=== PATIENT | female | born 1950 | race Caucasian/White ===

== ENCOUNTER 2017-11-17 06:51 | Emergency (ER) | payer MEDICARE, BC ==
[2017-11-17] MEDS ORDERED: Ondansetron 4 MG Tab.DIS PO ONE (07:41)
--- NOTE | 2017-11-17 07:46 | EDM.PDOC ---
ED HPI GENERAL MEDICAL PROBLEM - General Chief Complaint: Fever Stated Complaint: FEVER AND HEADACHE Time Seen by Provider: 11/17/17 07:30 Source of Information: Reports: Patient, Old Records, RN History Limitations: Reports: No Limitations - History of Present Illness INITIAL COMMENTS - FREE TEXT/NARRATIVE: 67 yo female here with intermittent fevers since yesterday afternoon. Started with chills. Has some R flank pain, but no dysuria. Has a pHx of recurrent UTI' s. Other than a mild MCGILL has no other sx's currently. Has not been to the clinic for her sx's. Did take acetaminophen earlier this morning. Onset: Gradual Onset Date: 11/16/17 Duration: Hour(s):, Waxing/Waning Location: Reports: Back (R flank) Quality: Reports: Ache Severity: Mild Improves with: Reports: Medication (acetaminophen) Worsens with: Reports: Other (? time) Context: Reports: Other (recurrent UTI's) Associated Symptoms: Reports: Fever/Chills, Headaches (mild), Nausea/Vomiting ( emesis x one yesterday, ongoing nausea. ). 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 Pain Score (Numeric/FACES): 3 - Related Data Allergies Allergy/AdvReac Type Severity Reaction Status Date / Time adhesive Allergy Hives Verified 11/17/17 07:10 Home Meds: Home Meds Acetaminophen [Children's Non-Aspirin] 1,000 mg PO ASDIRECTED PRN 05/07/13 [ History] Aspirin 325 mg PO DAILY 05/07/13 [History] Calcium Citrate/Vitamin D3 [Calcium Citrate + Caplet] 950 mg PO TID 05/07/13 [ History] Cholecalciferol (Vitamin D3) [Vitamin D] 7,000 unit PO DAILY 05/07/13 [History] Citalopram [Citalopram Hbr] 40 mg PO DAILY 05/07/13 [History] Cranberry Conc/C/Bacill Coag [Cranberry Tablet] 650 mg PO DAILY 05/07/13 [ History] Cyanocobalamin (Vitamin B-12) [Cyanocobalamin Injection] 1 injection IM ASDIRECTED 05/07/13 [History] Cyanocobalamin (Vitamin B-12) [Vitamin B-12] 2,500 mcg PO DAILY 05/07/13 [ History] Ferrous Fumarate/Vit C/B12-IF [Fetrin SA] 1 cap PO BID 05/07/13 [History] Levothyroxine [Synthroid] 137 mcg PO DAILY 05/07/13 [History] Multivitamin [Multivitamins] 1 each PO DAILY 05/07/13 [History] Nystatin 100,000 units TOP QID PRN 05/07/13 [History] [place]-3 Fatty Acids [[place]-3] 2,000 mg PO BID 05/07/13 [History] Sulfamethoxazole/Trimethoprim [Bactrim Ds Tablet] 1 tab PO DAILY 05/07/13 [ History] Vitamin E 400 unit PO DAILY 05/07/13 [History] Chlorthalidone 25 mg PO DAILY 08/02/13 [History] Acetaminophen [Tylenol Arthritis] 1 tab PO ASDIRECTED 11/17/17 [History] Vit B Cmplx 3/Fa/Vit C/Biotin [Cinthya-Jena Rx Tablet] 1 tab PO DAILY 11/17/17 [ History] Past Medical History Cardiovascular History: Reports: Other (See Below) Other Cardiovascular History: heart murmur with Genitourinary History: Reports: Renal Calculus, UTI, Recurrent 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: Musculoskeletal History: Reports: Osteoarthritis Psychiatric History: Reports: Depression Endocrine/Metabolic History: Reports: Hypothyroidism, Vitamin D Deficiency Hematologic History: Reports: Iron Deficiency - Past Surgical History Cardiovascular Surgical History: Reports: None GI Surgical History: Reports: Appendectomy, Bariatric Procedure, Cholecystectomy Female Surgical History: Reports: D&C, Hysterectomy Musculoskeletal Surgical History: Reports: Shoulder Surgery Social & Family History - Tobacco Use Smoking Status *Q: Never Smoker - Recreational Drug Use Recreational Drug Use: No ED ROS GENERAL - Review of Systems Review Of Systems: See Below Constitutional: Reports: Fever, Chills, Malaise, Decreased Appetite HEENT: Reports: No Symptoms Respiratory: Reports: No Symptoms Cardiovascular: Reports: No Symptoms Endocrine: Reports: No Symptoms GI/Abdominal: Reports: Decreased Appetite, Nausea, Vomiting. Denies: Black Stool, Bloody Stool, Constipation, Diarrhea, Distension, Hematemesis, Hematochezia, Melena : Reports: Flank Pain (right). Denies: Dysuria, Frequency, Hematuria, Incontinence Musculoskeletal: Reports: No Symptoms Skin: Reports: No Symptoms Neurological: Reports: No Symptoms ED EXAM, RENAL/ - Physical Exam Exam: See Below Exam Limited By: No Limitations General Appearance: Alert, WD/WN, No Apparent Distress, Obese Eye Exam: Bilateral Eye: Normal Inspection Ears: Normal External Exam, Normal Canal, Hearing Grossly Normal Nose: Normal Inspection, Normal Mucosa Throat/Mouth: Normal Inspection, Normal Lips, Normal Oropharynx, Normal Voice, No Airway Compromise Head: Atraumatic, Normocephalic Neck: Normal Inspection, Supple Respiratory/Chest: No Respiratory Distress, Lungs Clear, Normal Breath Sounds, No Accessory Muscle Use Cardiovascular: Regular Rate, Rhythm, No Edema GI/Abdominal: Normal Bowel Sounds, Soft, Non-Tender, No Distention Back Exam: Normal Inspection. No: CVA Tenderness (R), CVA Tenderness (L) Extremities: Normal Inspection, Normal Range of Motion, Non-Tender, No Pedal Edema Neurological: Alert, Oriented, CN II-XII Intact, Normal Cognition, No Motor/ Sensory Deficits Psychiatric: Normal Affect, Normal Mood Skin Exam: Warm, Dry, Intact, Normal Color, No Rash Lymphatic: No Adenopathy Course - Vital Signs Last Recorded V/S: Last Vital Signs Temp 36.5 C 11/17/17 07:07 Pulse 65 11/17/17 08:02 Resp 12 11/17/17 08:02 BP 99/65 11/17/17 08:02 Pulse Ox 96 11/17/17 08:02 - Orders/Labs/Meds Orders: Active Orders 24 hr Category Date Time Status CULTURE URINE [RM] Stat Lab 11/17/17 09:24 Ordered UA W/MICROSCOPIC [URIN] Stat Lab 11/17/17 08:49 Ordered Labs: Laboratory Tests 11/17/17 11/17/17 Range/Units 08:49 09:15 WBC 5.5 (4.5-11.0) K/uL RBC 3.89 (3.30-5.50) M/uL Hgb 12.6 (12.0-15.0) g/dL Hct 36.9 (36.0-48.0) % MCV 95 (80-98) fL MCH 32 H (27-31) pg MCHC 34 (32-36) % Plt Count 234 (150-400) K/uL Urine Color Yellow Urine Appearance Clear Urine pH 8.0 (4.5-8.0) Ur Specific [place] 1.010 (1.008-1.030) Urine Protein Negative (NEGATIVE) mg/dL Urine Glucose (UA) Normal (NEGATIVE) mg/dL Urine Ketones Negative (NEGATIVE) mg/dL Urine Occult Blood Negative (NEGATIVE) Urine Nitrite Negative (NEGATIVE) Urine Bilirubin Negative (NEGATIVE) Urine Urobilinogen Normal (NORMAL) mg/dL Ur Leukocyte Esterase Moderate (NEGATIVE) Urine RBC 0-5 (0-5) Urine WBC 5-10 H (0-5) Ur Epithelial Cells Few Amorphous Sediment Not seen Urine Bacteria Not seen Urine Mucus Few Meds: Medications Discontinued Medications Generic Name Dose Route Start Last Admin Trade Name Freq PRN Reason Stop Dose Admin Ondansetron HCl 4 mg 11/17/17 07:41 11/17/17 08:01 Zofran Odt PO 11/17/17 07:42 4 mg ONETIME ONE Administration Departure - Departure Time of Disposition: 09:30 Disposition: Home, Self-Care 01 Condition: Fair Clinical Impression: UTI (urinary tract infection) Qualifiers: Urinary tract infection type: site unspecified Hematuria presence: without hematuria Qualified Code(s): N39.0 - Urinary tract infection, site not specified - Discharge Information Referrals: Tuan Candelaria MD [Primary Care Provider] - Forms: ED Department Discharge - My Orders Last 24 Hours: My Active Orders 11/17/17 08:49 UA W/MICROSCOPIC [URIN] Stat 11/17/17 09:24 CULTURE URINE [RM] Stat - Assessment/Plan Last 24 Hours: My Active Orders 11/17/17 08:49 UA W/MICROSCOPIC [URIN] Stat 11/17/17 09:24 CULTURE URINE [RM] Stat
[2017-11-17] MEDS ORDERED: Cephalexin 250 MG Cap PO ONE (09:27)
== END 2017-11-17 09:54 | disposition home or self-care (01) ==
LOC: JP.ED 06:51
DX: N39.0 Urinary tract infection, site not specified (principal)
CPT/HCPCS: 36415; 81001; 85027; 87086; 99284; A9270

== ENCOUNTER 2020-05-18 06:11 | Day surgery (SDC) | payer MEDICARE, BC ==
[~2020-05-18 06:11] MED LIST: Sodium Chloride 0.9% 10 ML Syringe FLUSH PRN
[2020-05-18] MEDS ORDERED: Sodium Chloride 0.9% 10 ML Syringe FLUSH ONE (08:30)
--- NOTE | 2020-05-18 12:14 | OR ---
DATE OF PROCEDURE: 05/18/2020 SURGEON: Nicci Gil MD POSTOPERATIVE CARE: Postoperative care will be provided mainly at the [address] [place] [address] [facility] in conjunction with [facility]. PREOPERATIVE DIAGNOSIS: Cataract, left eye. POSTOPERATIVE DIAGNOSIS: Cataract, left eye. PROCEDURE: Phacoemulsification with intraocular lens placement, left eye. ANESTHESIA: Topical and intracameral. ESTIMATED BLOOD LOSS: Minimal. COMPLICATIONS: None. PATHOLOGY SPECIMENS: None. SURGICAL FINDINGS: None. INDICATION FOR PROCEDURE: The patient is a 69-year-old female with history of a visually significant cataract in the left eye, which interfered with activities of daily living. This consisted of a nuclear sclerosis cataract. Following careful discussion of the risks, benefits and alternatives to cataract extraction with intraocular lens placement including blindness and , the patient elected to proceed, and informed, written consent was obtained prior to the procedure. DESCRIPTION OF THE PROCEDURE: The patient was previously identified, and a jane placed above the left eye. All sources, including the patient, indicated that the left eye was the correct eye. The patient was subsequently taken to the operating room where standard monitors were applied. The patient was then prepped and draped in the usual sterile fashion for ophthalmic surgery. Attention was first directed at the 12 o'clock position where a paracentesis port was fashioned. Shugar solution followed by Viscoat was instilled into the eye. Attention was then directed to the 8:30 position where a triplanar incision was made in a near-clear manner using a keratome. A continuous capsulorrhexis was then made using a combination of the cystotome and Utrata forceps. Hydrodissection was achieved using a balanced salt solution, and the lens rotated nicely. Phacoemulsification was then done using a modified [id number] technique without complication. Phaco time was 6.45 CDE. The remaining cortex was removed using the irrigation/aspiration handpiece. Provisc was then instilled into the eye. A Technis lens, model PCB00, at 21.5 diopters was then placed in the capsular bag using an [place] injector. The remaining viscoelastic was removed using the irrigation/aspiration forceps. All wounds were then checked and found to be watertight. The lid speculum and drapes were removed. Maxitrol ointment was placed in the patient's left eye, and the eye was shielded. The patient tolerated the procedure well. The patient was instructed to follow up tomorrow. All needle and sponge counts were correct at the end of the procedure. Nicci Gil MD /[id number]
== END 2020-05-18 10:49 | disposition home or self-care (01) ==
LOC: JP.SDS 06:11
PROVIDERS: ATTEND Ophthalmology
DX: H26.9 Unspecified cataract (principal); Z88.8 Allergy status to other drugs, medicaments and biological substances

== ENCOUNTER 2020-06-01 06:13 | Day surgery (SDC) | payer MEDICARE, BC ==
[2020-06-01] MEDS ORDERED: Sodium Chloride 0.9% 10 ML Syringe FLUSH PRN (08:30)
--- NOTE | 2020-06-01 14:35 | OR ---
DATE OF PROCEDURE: 06/01/2020 SURGEON: Nicci Gil MD POSTOPERATIVE CARE: Postoperative care will be provided mainly at the [address] [place] [address] [facility] in conjunction with [facility]. PREOPERATIVE DIAGNOSIS: Cataract, right eye. POSTOPERATIVE DIAGNOSIS: Cataract, right eye. PROCEDURE: Phacoemulsification with intraocular lens placement, right eye. ANESTHESIA: Topical and intracameral. ESTIMATED BLOOD LOSS: Minimal. COMPLICATIONS: None. PATHOLOGY SPECIMENS: None. SURGICAL FINDINGS: None. INDICATION FOR PROCEDURE: The patient is a 69-year-old female with history of a visually significant cataract in the right eye, which interfered with activities of daily living. This consisted of a nuclear sclerosis cataract. Following careful discussion of the risks, benefits and alternatives to cataract extraction with intraocular lens placement including blindness and , the patient elected to proceed, and informed, written consent was obtained prior to the procedure. DESCRIPTION OF THE PROCEDURE: The patient was previously identified, and a jane placed above the right eye. All sources, including the patient, indicated that the right eye was the correct eye. The patient was subsequently taken to the operating room where standard monitors were applied. The patient was then prepped and draped in the usual sterile fashion for ophthalmic surgery. Attention was first directed at the 12 o'clock position where a paracentesis port was fashioned. Shugar solution followed by Viscoat was instilled into the eye. Attention was then directed to the 8:30 position where a triplanar incision was made in a near-clear manner using a keratome. A continuous capsulorrhexis was then made using a combination of the cystotome and Utrata forceps. Hydrodissection was achieved using a balanced salt solution, and the lens rotated nicely. Phacoemulsification was then done using a modified [id number] technique without complication. Phaco time was 5.31 CDE. The remaining cortex was removed using the irrigation/aspiration handpiece. Provisc was then instilled into the eye. A Technis lens, model DCB00, at 22.5 diopter lens was then placed in the capsular bag using an [place] injector. The remaining viscoelastic was removed using the irrigation/aspiration forceps. All wounds were then checked and found to be watertight. The lid speculum and drapes were removed. Maxitrol ointment was placed in the patient's right eye, and the eye was shielded. The patient tolerated the procedure well. The patient was instructed to follow up tomorrow. All needle and sponge counts were correct at the end of the procedure. There were no surgical findings. Nicci Gli MD /[id number]
== END 2020-06-01 09:48 | disposition home or self-care (01) ==
LOC: JP.SDS 06:13
PROVIDERS: ATTEND Ophthalmology
DX: H26.9 Unspecified cataract (principal)
CPT/HCPCS: 66984; V2632

== ENCOUNTER 2020-06-25 08:44 | Inpatient (IN) | payer MEDICARE, BC ==
--- NOTE | 2020-06-25 09:50 | EDM.PDOC ---
ED HPI GENERAL MEDICAL PROBLEM - General Chief Complaint: Neurological Problem Stated Complaint: FELL ABOUT 3:30 HIT HEAD Time Seen by Provider: 06/25/20 09:35 Source of Information: Reports: Patient, Family, Old Records, RN History Limitations: Reports: No Limitations - History of Present Illness INITIAL COMMENTS - FREE TEXT/NARRATIVE: 69 yo female here with dizziness when she sits or even worse with standing. Sx's like this for several days. Has not been to her provider for any of this. Has fallen a few times without apparent injury. Denies any urinary sx's, chest pain, diarrhea, vomiting, fever or dark/bloody stools. Is due for colonoscopy this year, her last was with Dr. Buckner. Is not aware of a pHx of diverticulosis. 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) (none) - Related Data Allergies Allergy/AdvReac Type Severity Reaction Status Date / Time adhesive Allergy Hives Verified 06/25/20 11:26 Home Meds: Home Meds Aspirin 325 mg PO DAILY 05/07/13 [History] Calcium Citrate/Vitamin D3 [Calcium Citrate + Caplet] 1,900 mg PO BID 05/07/13 [History] Cholecalciferol (Vitamin D3) [Vitamin D] 5,000 unit PO DAILY 05/07/13 [History] Citalopram [Citalopram Hbr] 40 mg PO DAILY 05/07/13 [History] Cyanocobalamin (Vitamin B-12) [Cyanocobalamin Injection] 1,000 mcg IM Q14D 05/07/13 [History] Cyanocobalamin (Vitamin B-12) [Vitamin B-12] 2,500 mcg SL DAILY 05/07/13 [History] Levothyroxine [Synthroid] 137 mcg PO DAILY 05/07/13 [History] Multivitamin [Multivitamins] 1 each PO DAILY 05/07/13 [History] [place]-3 Fatty Acids [[place]-3] 2,000 mg PO BID 05/07/13 [History] Sulfamethoxazole/Trimethoprim [Bactrim Ds Tablet] 1 tab PO MOWEFR 05/07/13 [History] Vitamin E 400 unit PO BID 05/07/13 [History] Chlorthalidone 37.5 mg PO DAILY 08/02/13 [History] Acetaminophen [Tylenol Arthritis] 1 tab PO ASDIRECTED 11/17/17 [History] Alendronate Sodium 70 mg PO Q7D 05/15/20 [History] Biotin 5,000 mcg PO BID 05/15/20 [History] Ocuvite Or 1 tab PO BID 05/15/20 [History] Potassium Chloride 20 meq PO DAILY 05/15/20 [History] Vitamin B Complex [B Complex] 1 each PO DAILY 05/15/20 [History] Past Medical History HEENT History: Reports: Cataract, Impaired Vision Cardiovascular History: Reports: Other (See Below) Other Cardiovascular History: heart murmur with Gastrointestinal History: Reports: Cholelithiasis Genitourinary History: Reports: Renal Calculus, UTI, 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, Musculoskeletal History: Reports: Arthritis, Osteoarthritis Other Musculoskeletal History: both knees are painful Psychiatric History: Reports: Depression Endocrine/Metabolic History: Reports: Hypothyroidism, Obesity/BMI 30+, Vitamin D Deficiency Hematologic History: Reports: B12 Deficiency, Iron Deficiency - Infectious Disease History Infectious Disease History: Reports: Chicken Pox, Measles - Past Surgical History HEENT Surgical History: Reports: Cataract Surgery Cardiovascular Surgical History: Reports: None GI Surgical History: Reports: Appendectomy, Bariatric Procedure, Cholecystectomy, Colonoscopy, EGD Female Surgical History: Reports: D&C, Hysterectomy Endocrine Surgical History: Reports: None Musculoskeletal Surgical History: Reports: Shoulder Surgery Social & Family History - Caffeine Use Caffeine Use: Reports: Coffee ED ROS GENERAL - Review of Systems Review Of Systems: See Below Constitutional: Reports: No Symptoms HEENT: Reports: No Symptoms Respiratory: Reports: No Symptoms Cardiovascular: Reports: Lightheadedness Endocrine: Reports: No Symptoms GI/Abdominal: Reports: No Symptoms : Reports: No Symptoms Musculoskeletal: Reports: No Symptoms Skin: Reports: No Symptoms Neurological: Reports: No Symptoms ED EXAM, NEURO - Physical Exam Exam: See Below Exam Limited By: No Limitations General Appearance: Alert, WD/WN, No Apparent Distress, Obese Eye Exam: Bilateral Eye: Normal Inspection Ears: Normal External Exam, Normal Canal, Hearing Grossly Normal Nose: Normal Inspection, No Blood Throat/Mouth: Normal Inspection, Normal Lips, Normal Oropharynx, Normal Voice, No Airway Compromise Head Exam: Atraumatic, Normocephalic Neck: Normal Inspection Respiratory/Chest: No Respiratory Distress, Lungs Clear, Normal Breath Sounds, No Accessory Muscle Use Cardiovascular: Regular Rate, Rhythm, No Edema GI/Abdominal: Normal Bowel Sounds, Soft, Non-Tender, No Distention. No: Distended Neurological: Alert, Normal Mood/Affect, CN II-XII Intact, No Motor/Sensory Deficits, Oriented x 3 Back Exam: Normal Inspection. No: CVA Tenderness (R), CVA Tenderness (L) Extremities: Normal Inspection, Normal Range of Motion, Non-Tender, No Pedal Edema. No: Pedal Edema Psychiatric: Normal Affect, Normal Mood Skin Exam: Warm, Dry, Intact, Normal Color, No Rash Course - Vital Signs Text/Narrative:: Dr. Mancia called @ 1408h Last Recorded V/S: Last Vital Signs Temp 36.4 C 06/25/20 09:14 Pulse 88 06/25/20 09:14 Resp 16 06/25/20 09:14 BP 118/63 06/25/20 09:14 Pulse Ox 100 06/25/20 09:14 Orthostatic Blood Pressure [ 89/59 Standing] Orthostatic Blood Pressure [ 100/61 Sitting] Orthostatic Blood Pressure [ 95/51 Supine] - Orders/Labs/Meds Orders: Active Orders 24 hr Category Date Time Status Cardiac Monitoring [RC] .As Directed Care 06/25/20 09:44 Active Orthostatic Vital Signs [RC] ASDIRECTED Care 06/25/20 09:43 Active Orthostatic Vital Signs [RC] ASDIRECTED Care 06/25/20 12:45 Active NS + KCl 20mEq/L [Normal Saline with 20 mEq KCl] 1,000 Med 06/25/20 10:30 Active ml IV ASDIRECTED Sodium Chloride 0.9% [Saline Flush] Med 06/25/20 10:08 Active 10 ml FLUSH ASDIRECTED PRN Saline Lock Insert [OM.PC] Routine Oth 06/25/20 10:08 Ordered Medication Orders Potassium Chloride/Sodium Chloride (Normal Saline With 20 Meq Kcl) 1,000 mls @ 500 mls/hr IV ASDIRECTED [facility] Last Admin: 06/25/20 10:43 Dose: 500 mls/hr Documented by: JOHN Sodium Chloride (Saline Flush) 10 ml FLUSH ASDIRECTED PRN PRN Reason: Keep Vein Open Last Admin: 06/25/20 10:45 Dose: 10 ml Documented by: JOHN Labs: Laboratory Tests 06/25/20 06/25/20 06/25/20 Range/Units 09:55 09:56 09:56 WBC 7.0 (4.5-11.0) K/uL RBC 2.90 L (3.30-5.50) M/uL Hgb 8.7 L D (12.0-15.0) g/dL Hct 27.1 L (36.0-48.0) % MCV 93 (80-98) fL MCH 30 (27-31) pg MCHC 32 (32-36) % Plt Count 427 H (150-400) K/uL Sodium 141 (140-148) mmol/L Potassium 3.1 L (3.6-5.2) mmol/L Chloride 101 (100-108) mmol/L Carbon Dioxide 30 (21-32) mmol/L Anion Gap 13.1 (5.0-14.0) mmol/L BUN 23 H D (7-18) mg/dL Creatinine 0.6 (0.6-1.0) mg/dL Est Cr Clr Drug Dosing 81.23 mL/min Estimated GFR (MDRD) > 60 (>60) Glucose 131 H (74-106) mg/dL Calcium 9.1 (8.5-10.1) mg/dL Magnesium 1.7 L (1.8-2.4) mg/dL Troponin I (0.000-0.056) ng/mL Urine Color (YELLOW) Urine Appearance (CLEAR) Urine pH (5.0-8.0) Ur Specific [place] (1.008-1.030) Urine Protein (NEGATIVE) mg/dL Urine Glucose (UA) (NEGATIVE) mg/dL Urine Ketones (NEGATIVE) mg/dL Urine Occult Blood (NEGATIVE) Urine Nitrite (NEGATIVE) Urine Bilirubin (NEGATIVE) Urine Urobilinogen (0.2-1.0) EU/dL Ur Leukocyte Esterase (NEGATIVE) Urine RBC (0-5) Urine WBC (0-5) Ur Epithelial Cells Amorphous Sediment Urine Bacteria Urine Mucus 06/25/20 06/25/20 Range/Units 09:56 12:00 WBC (4.5-11.0) K/uL RBC (3.30-5.50) M/uL Hgb (12.0-15.0) g/dL Hct (36.0-48.0) % MCV (80-98) fL MCH (27-31) pg MCHC (32-36) % Plt Count (150-400) K/uL Sodium (140-148) mmol/L Potassium (3.6-5.2) mmol/L Chloride (100-108) mmol/L Carbon Dioxide (21-32) mmol/L Anion Gap (5.0-14.0) mmol/L BUN (7-18) mg/dL Creatinine (0.6-1.0) mg/dL Est Cr Clr Drug Dosing mL/min Estimated GFR (MDRD) (>60) Glucose (74-106) mg/dL Calcium (8.5-10.1) mg/dL Magnesium (1.8-2.4) mg/dL Troponin I < 0.017 (0.000-0.056) ng/mL Urine Color Yellow (YELLOW) Urine Appearance Clear (CLEAR) Urine pH 7.0 (5.0-8.0) Ur Specific [place] 1.020 (1.008-1.030) Urine Protein Negative (NEGATIVE) mg/dL Urine Glucose (UA) Negative (NEGATIVE) mg/dL Urine Ketones Negative (NEGATIVE) mg/dL Urine Occult Blood Negative (NEGATIVE) Urine Nitrite Negative (NEGATIVE) Urine Bilirubin Negative (NEGATIVE) Urine Urobilinogen 1.0 (0.2-1.0) EU/dL Ur Leukocyte Esterase Negative (NEGATIVE) Urine RBC 0-5 (0-5) Urine WBC 0-5 (0-5) Ur Epithelial Cells Rare Amorphous Sediment Not seen Urine Bacteria Rare Urine Mucus Not seen Meds: Medications Generic Name Dose Route Start Last Admin Trade Name Freq PRN Reason Stop Dose Admin Potassium Chloride/Sodium Chloride 1,000 mls @ 500 mls/hr 06/25/20 10:30 06/25/20 10:43 Normal Saline With 20 Meq Kcl IV 500 mls/hr ASDIRECTED CLEMENTE Administration Sodium Chloride 10 ml 06/25/20 10:08 06/25/20 10:45 Saline Flush FLUSH 10 ml ASDIRECTED PRN Administration Keep Vein Open Discontinued Medications Generic Name Dose Route Start Last Admin Trade Name Freq PRN Reason Stop Dose Admin Lactated Ringer's 1,000 mls @ 1,000 mls/hr 06/25/20 13:20 06/25/20 13:26 Ringers, Lactated IV 06/25/20 14:19 1,000 mls/hr BOLUS ONE Administration Magnesium Oxide 800 mg 06/25/20 10:36 06/25/20 10:43 Magnesium Oxide PO 06/25/20 10:37 800 mg ONETIME ONE Administration Potassium Chloride 20 meq 06/25/20 10:25 06/25/20 10:40 Klor-Con M20 PO 06/25/20 10:26 20 meq ONETIME ONE Administration Departure - Departure Time of Disposition: 14:50 Disposition: Admitted As Inpatient 66 Condition: Fair Clinical Impression: Orthostatic hypotension, Hypokalemia, Mild dehydration Anemia Qualifiers: Anemia type: iron deficiency Iron deficiency anemia type: chronic blood loss Qualified Code(s): D50.0 - Iron deficiency anemia secondary to blood loss (chronic) GI (gastrointestinal bleed) Qualifiers: GI bleed type/associated pathology: unspecified gastrointestinal hemorrhage type Qualified Code(s): K92.2 - Gastrointestinal hemorrhage, unspecified - Discharge Information Referrals: Tuan Candelaria MD [Primary Care Provider] - Forms: ED Department Discharge Sepsis Event Note (ED) - Focused Exam Vital Signs: Vital Signs Temp Pulse Resp BP Pulse Ox 06/25/20 09:14 36.4 C 88 16 118/63 100 - My Orders Last 24 Hours: My Active Orders 06/25/20 09:43 Orthostatic Vital Signs [RC] ASDIRECTED 06/25/20 09:44 Cardiac Monitoring [RC] .As Directed 06/25/20 10:08 Sodium Chloride 0.9% [Saline Flush] 10 ml FLUSH ASDIRECTED PRN Saline Lock Insert [OM.PC] Routine 06/25/20 10:30 NS + KCl 20mEq/L [Normal Saline with 20 mEq KCl] 1,000 ml IV ASDIRECTED 06/25/20 12:45 Orthostatic Vital Signs [RC] ASDIRECTED - Assessment/Plan Last 24 Hours: My Active Orders 06/25/20 09:43 Orthostatic Vital Signs [RC] ASDIRECTED 06/25/20 09:44 Cardiac Monitoring [RC] .As Directed 06/25/20 10:08 Sodium Chloride 0.9% [Saline Flush] 10 ml FLUSH ASDIRECTED PRN Saline Lock Insert [OM.PC] Routine 06/25/20 10:30 NS + KCl 20mEq/L [Normal Saline with 20 mEq KCl] 1,000 ml IV ASDIRECTED 06/25/20 12:45 Orthostatic Vital Signs [RC] ASDIRECTED
[2020-06-25] MEDS ORDERED: Sodium Chloride 0.9% 10 ML Syringe FLUSH PRN ×2 (10:08→15:45)
[2020-06-25] MEDS ORDERED: Potassium Chloride 20 MEQ Tab.ER PO ONE ×2 (10:25→16:11)
[2020-06-25] MEDS ORDERED: NS + KCl 20mEq/L 1,000 ML IV SCH (10:30)
[2020-06-25] MEDS ORDERED: Magnesium Oxide 400 MG Tab PO ONE (10:36)
[2020-06-25] MEDS ORDERED: Lactated Ringers 1,000 ML IV ONE (13:20)
--- NOTE | 2020-06-25 15:09 | PCM.HP.2 ---
H&P History of Present Illness - General Date of Service: 06/25/20 Admit Problem/Dx: Admission Diagnosis/Problem Admission Diagnosis/Problem Bleeding Source of Information: Patient, Provider, RN Notes Reviewed History Limitations: Reports: No Limitations - History of Present Illness Initial Comments - Free Text/Narative: Ms. Marino is a 69-year-old woman who was admitted through the emergency department weakness and lightheadedness secondary to anemia and probable GI blee d. Over the last 7 days she has had ongoing difficulty with lightheadedness especially with standing, she denies vertiginous symptoms. When she stands up she feels as though she will pass out. She did have one episode of syncope about a week ago and had another episode of near syncope today. Because of the symptoms she presented to the urgency department for further evaluation. She was found to have low hemoglobin which is abnormal for her and significant orthostatic hypotension. Following hydration hemoglobin has dropped approximately 1 g and orthostasis has improved but not resolved. She denies recent hematemesis melena hematochezia or hematuria. Stool was tested and found to be heme positive. Recent symptoms of chest pain or pressure and her troponin level is within normal range. - Related Data Allergies/Adverse Reactions: Allergies Allergy/AdvReac Type Severity Reaction Status Date / Time adhesive Allergy Hives Verified 06/25/20 11:26 Home Medications: Home Meds Aspirin 325 mg PO DAILY 05/07/13 [History] Calcium Citrate/Vitamin D3 [Calcium Citrate + Caplet] 1,900 mg PO BID 05/07/13 [History] Cholecalciferol (Vitamin D3) [Vitamin D] 5,000 unit PO DAILY 05/07/13 [History] Citalopram [Citalopram Hbr] 40 mg PO DAILY 05/07/13 [History] Cyanocobalamin (Vitamin B-12) [Cyanocobalamin Injection] 1,000 mcg IM Q14D 05/07/13 [History] Cyanocobalamin (Vitamin B-12) [Vitamin B-12] 2,500 mcg SL DAILY 05/07/13 [History] Levothyroxine [Synthroid] 137 mcg PO DAILY 05/07/13 [History] Multivitamin [Multivitamins] 1 each PO DAILY 05/07/13 [History] [place]-3 Fatty Acids [[place]-3] 2,000 mg PO BID 05/07/13 [History] Sulfamethoxazole/Trimethoprim [Bactrim Ds Tablet] 1 tab PO MOWEFR 05/07/13 [History] Vitamin E 400 unit PO BID 05/07/13 [History] Chlorthalidone 37.5 mg PO DAILY 08/02/13 [History] Acetaminophen [Tylenol Arthritis] 1 tab PO ASDIRECTED 11/17/17 [History] Alendronate Sodium 70 mg PO Q7D 05/15/20 [History] Biotin 5,000 mcg PO BID 05/15/20 [History] Ocuvite Or 1 tab PO BID 05/15/20 [History] Potassium Chloride 20 meq PO DAILY 05/15/20 [History] Vitamin B Complex [B Complex] 1 each PO DAILY 05/15/20 [History] Past Medical History HEENT History: Reports: Cataract, Impaired Vision Cardiovascular History: Reports: Other (See Below) Other Cardiovascular History: heart murmur with Gastrointestinal History: Reports: Cholelithiasis Genitourinary History: Reports: Renal Calculus, UTI, 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 CAR History: Reports: Fibroids, Musculoskeletal History: Reports: Arthritis, Osteoarthritis Other Musculoskeletal History: both knees are painful Psychiatric History: Reports: Depression Endocrine/Metabolic History: Reports: Hypothyroidism, Obesity/BMI 30+, Vitamin D Deficiency Hematologic History: Reports: B12 Deficiency, Iron Deficiency - Infectious Disease History Infectious Disease History: Reports: Chicken Pox, Measles - Past Surgical History HEENT Surgical History: Reports: Cataract Surgery Cardiovascular Surgical History: Reports: None GI Surgical History: Reports: Appendectomy, Bariatric Procedure, Cholecystectomy, Colonoscopy, EGD Female Surgical History: Reports: D&C, Hysterectomy Endocrine Surgical History: Reports: None Musculoskeletal Surgical History: Reports: Shoulder Surgery Social & Family History - Tobacco Use Tobacco Use Status *Q: Never Tobacco User - Caffeine Use Caffeine Use: Reports: Coffee - Recreational Drug Use Recreational Drug Use: No H&P Review of Systems - Review of Systems: Review Of Systems: See Below General: Reports: Malaise, Weakness. Denies: Fever, Chills HEENT: Reports: No Symptoms Pulmonary: Reports: No Symptoms Cardiovascular: Reports: Lightheadedness, Syncope. Denies: Chest Pain, Palpitations, Dyspnea on Exertion, Orthopnea, PND, Edema Gastrointestinal: Reports: No Symptoms Genitourinary: Reports: No Symptoms Musculoskeletal: Reports: No Symptoms Skin: Reports: No Symptoms Psychiatric: Reports: No Symptoms Neurological: Reports: No Symptoms Hematologic/Lymphatic: Reports: No Symptoms Immunologic: Reports: No Symptoms Exam - Exam Exam: See Below - Vital Signs Vital Signs: Last Vital Signs Temp 97.6 F 06/25/20 09:14 Pulse 88 06/25/20 09:14 Resp 16 06/25/20 09:14 BP 118/63 06/25/20 09:14 Pulse Ox 100 06/25/20 09:14 Orthostatic Blood Pressure [ 89/59 Standing] Orthostatic Blood Pressure [ 100/61 Sitting] Orthostatic Blood Pressure [ 95/51 Supine] Weight: 207 lb - Exam Quality Assessment: DVT Prophylaxis General: Alert, Oriented, Cooperative, Mild Distress HEENT: Conjunctiva Clear, Hearing Intact, Mucosa Moist & [place], Normal Nasal S eptum, Posterior Pharynx Clear, Pupils Equal Neck: Supple, Trachea Midline, +2 Carotid Pulse wo Bruit Lungs: Clear to Auscultation, Normal Respiratory Effort Cardiovascular: Regular Rate, Regular Rhythm, Normal S1, Normal S2. No: Systolic Murmur, Diastolic Murmur GI/Abdominal Exam: Soft, Non-Tender, No Organomegaly, No Distention Back Exam: Normal Inspection, Full Range of Motion Extremities: Non-Tender, No Pedal Edema Skin: Warm, Dry, Intact Neurological: Cranial Nerves Intact, Strength Equal Bilateral, Normal Speech, Normal Tone, Sensation Intact. No: Focal Deficit Neuro Extensive - Mental Status: Alert, Oriented x3, Normal Mood/Affect, Normal Cognition, Memory Intact - Patient Data Lab Results Last 24 hrs: Laboratory Results - last 24 hr 06/25/20 06/25/20 06/25/20 Range/Units 09:55 09:56 09:56 WBC 7.0 (4.5-11.0) K/uL RBC 2.90 L (3.30-5.50) M/uL Hgb 8.7 L D (12.0-15.0) g/dL Hct 27.1 L (36.0-48.0) % MCV 93 (80-98) fL MCH 30 (27-31) pg MCHC 32 (32-36) % Plt Count 427 H (150-400) K/uL Sodium 141 (140-148) mmol/L Potassium 3.1 L (3.6-5.2) mmol/L Chloride 101 (100-108) mmol/L Carbon Dioxide 30 (21-32) mmol/L Anion Gap 13.1 (5.0-14.0) mmol/L BUN 23 H D (7-18) mg/dL Creatinine 0.6 (0.6-1.0) mg/dL Est Cr Clr Drug Dosing 81.23 mL/min Estimated GFR (MDRD) > 60 (>60) Glucose 131 H (74-106) mg/dL Calcium 9.1 (8.5-10.1) mg/dL Magnesium 1.7 L (1.8-2.4) mg/dL Troponin I (0.000-0.056) ng/mL Urine Color (YELLOW) Urine Appearance (CLEAR) Urine pH (5.0-8.0) Ur Specific [place] (1.008-1.030) Urine Protein (NEGATIVE) mg/dL Urine Glucose (UA) (NEGATIVE) mg/dL Urine Ketones (NEGATIVE) mg/dL Urine Occult Blood (NEGATIVE) Urine Nitrite (NEGATIVE) Urine Bilirubin (NEGATIVE) Urine Urobilinogen (0.2-1.0) EU/dL Ur Leukocyte Esterase (NEGATIVE) Urine RBC (0-5) Urine WBC (0-5) Ur Epithelial Cells Amorphous Sediment Urine Bacteria Urine Mucus 06/25/20 06/25/20 Range/Units 09:56 12:00 WBC (4.5-11.0) K/uL RBC (3.30-5.50) M/uL Hgb (12.0-15.0) g/dL Hct (36.0-48.0) % MCV (80-98) fL MCH (27-31) pg MCHC (32-36) % Plt Count (150-400) K/uL Sodium (140-148) mmol/L Potassium (3.6-5.2) mmol/L Chloride (100-108) mmol/L Carbon Dioxide (21-32) mmol/L Anion Gap (5.0-14.0) mmol/L BUN (7-18) mg/dL Creatinine (0.6-1.0) mg/dL Est Cr Clr Drug Dosing mL/min Estimated GFR (MDRD) (>60) Glucose (74-106) mg/dL Calcium (8.5-10.1) mg/dL Magnesium (1.8-2.4) mg/dL Troponin I < 0.017 (0.000-0.056) ng/mL Urine Color Yellow (YELLOW) Urine Appearance Clear (CLEAR) Urine pH 7.0 (5.0-8.0) Ur Specific [place] 1.020 (1.008-1.030) Urine Protein Negative (NEGATIVE) mg/dL Urine Glucose (UA) Negative (NEGATIVE) mg/dL Urine Ketones Negative (NEGATIVE) mg/dL Urine Occult Blood Negative (NEGATIVE) Urine Nitrite Negative (NEGATIVE) Urine Bilirubin Negative (NEGATIVE) Urine Urobilinogen 1.0 (0.2-1.0) EU/dL Ur Leukocyte Esterase Negative (NEGATIVE) Urine RBC 0-5 (0-5) Urine WBC 0-5 (0-5) Ur Epithelial Cells Rare Amorphous Sediment Not seen Urine Bacteria Rare Urine Mucus Not seen Result Diagrams: 06/25/20 15:18 06/25/20 15:18 Dylan Results Last 24 hrs: Microbiology 06/25/20 11:19 Stool Occult Blood (DYLAN) - Final Stool / Feces - Stool, Formed Sepsis Event Note - Evaluation Sepsis Screening Result: No Definite Risk - Focused Exam Vital Signs: Vital Signs Temp Pulse Resp BP Pulse Ox 06/25/20 09:14 97.6 F 88 16 118/63 100 *Q Meaningful Use (ADM) - VTE *Q VTE Pharmacological Contraindications *Q: Active Hemorrhage - VTE Risk Assess *Q Each Risk Factor Represents 1 Point: Obesity ( BMI > 25 kg/m2) Total Score 1 Point Risk Factors: 1 Each Risk Factor Represents 2 Points: Age 60 - 74 Years Total Score 2 Point Risk Factors: 2 Each Risk Factor Represents 3 Points: None Total Score 3 Point Risk Factors: 0 Each Risk Factor Represents 5 Points: None Total Score 5 Point Risk Factors: 0 Venous Thromboembolism Risk Factor Score *Q: 3 Problem List Initiated/Reviewed/Updated: Yes Orders Last 24hrs: Active Orders 24 hr Category Date Time Status Patient Status Manage Transfer [TRANSFER] Routine ADT 06/25/20 14:59 Ordered Cardiac Monitoring [RC] .As Directed Care 06/25/20 09:44 Active Orthostatic Vital Signs [RC] ASDIRECTED Care 06/25/20 09:43 Active Orthostatic Vital Signs [RC] ASDIRECTED Care 06/25/20 12:45 Active HEMOGLOBIN [HEME] Stat Lab 06/25/20 14:56 Ordered POTASSIUM,K [CHEM] Stat Lab 06/25/20 14:56 Ordered NS + KCl 20mEq/L [Normal Saline with 20 mEq KCl] 1,000 Med 06/25/20 10:30 Active ml IV ASDIRECTED Sodium Chloride 0.9% [Saline Flush] Med 06/25/20 10:08 Active 10 ml FLUSH ASDIRECTED PRN Saline Lock Insert [OM.PC] Routine Oth 06/25/20 10:08 Ordered Resuscitation Status Routine Resus Stat 06/25/20 15:02 Ordered Medication Orders Potassium Chloride/Sodium Chloride (Normal Saline With 20 Meq Kcl) 1,000 mls @ 500 mls/hr IV ASDIRECTED CLEMENTE Last Admin: 06/25/20 10:43 Dose: 500 mls/hr Documented by: JOHN Sodium Chloride (Saline Flush) 10 ml FLUSH ASDIRECTED PRN PRN Reason: Keep Vein Open Last Admin: 06/25/20 10:45 Dose: 10 ml Documented by: JOHN Assessment/Plan Comment:: ASSESSMENT AND PLAN GI BLEED-upper versus lower, source not apparent by history or examination. Currently denies any abdominal pain, hematemesis, melena, hematochezia, or hematuria. Stool found to be heme positive on testing in the emergency department. Associated with significant anemia and symptoms of weakness and lightheadedness. -Transfuse 1 unit of red blood cells, because of active bleeding and symptoms -Hold 1 unit of red blood cells -Clear liquid diet, n.p.o. after midnight -Serial hemoglobin levels -Protonix 40 mg IV every 12 hours -Consult Dr. Buckner for EGD and colonoscopy in a.m. ACUTE BLOOD LOSS ANEMIA-secondary to GI bleed -Evaluation and management as above SYNCOPE/NEAR SYNCOPE-likely secondary to active bleeding over the past week, with intravascular volume depletion -Cardiac monitoring -Transfuse as above MAINTENANCE ISSUES -DVT prophylaxis; SCUDs, hold on anticoagulation because of active bleed -GI prophylaxis; Protonix as above -Willis catheter; not indicated -Nutrition; clear liquid diet, n.p.o. after midnight -Nicotine dependence; not required CODE STATUS-FULL CODE ADMISSION STATUS-patient will be admitted to inpatient status, expect at least a 2 night hospital stay for evaluation and management of problems as outlined above. At the time of this admission I do not reasonably expected evaluation and management of this problem will require more than a 96 hour hospital stay. DISPOSITION-anticipate discharge to home after the hospital stay. PRIMARY CARE PROVIDER-Dr. Candelaria - Mortality Measure Prognosis:: Good
[2020-06-25] MEDS ORDERED: Magnesium Oxide 400 MG Tab PO SCH (15:45)
[2020-06-25] MEDS ORDERED: Potassium Chloride Riders 40 MEQ in Premix Bag 1 BAG IV ONE (15:45)
[2020-06-25] MEDS ORDERED: Bisacodyl 5 MG Tab PO ONE ×2 (16:07→20:00)
[2020-06-25] MEDS: Sodium Chloride 0.9% 1,000 ML IV SCH (16:45)
[2020-06-25] MEDS ORDERED: Polyethylene Glycol 3350 Powder 238 GM Bot PO ONE (17:00)
[2020-06-25] MEDS: Potassium Chloride 20 MEQ in Premix Bag 1 BAG IV SCH ×2 (17:20→19:59)
[2020-06-25] MEDS: Pantoprazole 40 MG Vial IV SCH (17:28)
[2020-06-25] MEDS: Magnesium Sulfate/Water 2 GM/50 ML BAG IV SCH ×2 (17:35→22:23)
[2020-06-25] MEDS ORDERED: Potassium Chloride 20 MEQ in Premix Bag 1 BAG IV ONE (19:15)
[2020-06-25] MEDS: Acetaminophen 325 MG Tab PO PRN (20:03)
[2020-06-25] MEDS ORDERED: Bisacodyl 5 MG Tab ONE (20:18)
[2020-06-26] MEDS: Sodium Chloride 0.9% 1,000 ML IV SCH ×2 (00:50→11:04)
[2020-06-26] MEDS: Pantoprazole 40 MG Vial IV SCH ×2 (03:59→15:27)
[2020-06-26 05:25] LABS: CORONAVIRUS COVID-19 NAA NEGATIVE (NEGATIVE)
[2020-06-26] MEDS ORDERED: Propofol 200 MG/20 ML SDV ONE (08:16)
[2020-06-26] MEDS ORDERED: fentaNYL 100 MCG/2 ML SDV ONE (08:16)
[2020-06-26] MEDS ORDERED: Bisacodyl 5 MG Tab PO ONE ×2 (10:00→20:00)
[2020-06-26] MEDS: Levothyroxine 25 MCG Tab PO SCH (10:29)
[2020-06-26] MEDS: Levothyroxine 112 MCG Tab PO SCH (10:29)
[2020-06-26] MEDS ORDERED: POTASSIUM ACETATE IV ONE (10:30)
[2020-06-26] MEDS: Citalopram 20 MG Tab PO SCH (10:30)
[2020-06-26] MEDS ORDERED: SODIUM CHLORIDE 0.9% IV ONE (10:30)
[2020-06-26] MEDS: Potassium Chloride 20 MEQ Tab.ER PO SCH (10:31)
[2020-06-26] MEDS: Magnesium Oxide 400 MG Tab PO SCH ×2 (10:31→20:58)
[2020-06-26] MEDS ORDERED: Iopamidol 612 MG/ML 500 ML Multipack Bottle IV ONE (10:45)
[2020-06-26] MEDS: Acetaminophen 325 MG Tab PO PRN (11:17)
[2020-06-26] MEDS: Ondansetron 4 MG/2 ML SDV IV PRN (12:11)
--- NOTE | 2020-06-26 12:18 | PCM.PN ---
- General Info Date of Service: 06/26/20 Subjective Update: There were no acute events overnight. She has not had any melena or hematochezia. Vital signs have been stable. Hemoglobin is stable compared to yesterday evening. No complaints of abdominal pain. She did not clear very well with her colonoscopy prep last night. EGD this morning was unremarkable. Colonoscopy could not be completed because of incomplete prep. She has not had any fevers. Still feels lightheaded especially when sitting up. CT scan of the abdomen and pelvis is pending. Functional Status: Reports: Pain Controlled - Review of Systems General: Reports: Weakness. Denies: Fever Cardiovascular: Reports: Lightheadedness - Patient Data Vitals - Most Recent: Last Vital Signs Temp 36.6 C 06/26/20 11:47 Pulse 79 06/26/20 11:47 Resp 24 H 06/26/20 11:47 BP 99/54 L 06/26/20 11:47 Pulse Ox 98 06/26/20 10:09 Orthostatic Blood Pressure [ 89/59 Standing] Orthostatic Blood Pressure [ 100/61 Sitting] Orthostatic Blood Pressure [ 95/51 Supine] Weight - Most Recent: 85.729 kg I&O - Last 24 Hours: Intake & Output 06/25/20 06/26/20 06/26/20 22:59 06:59 14:59 Intake Total 1999 2543 650 Output Total 1999 900 Balance 0 1643 650 Lab Results Last 24 Hours: Laboratory Results - last 24 hr 06/25/20 06/25/20 06/25/20 Range/Units 15:18 15:18 15:18 WBC (4.5-11.0) K/uL RBC (3.30-5.50) M/uL Hgb 7.7 L (12.0-15.0) g/dL Hct (36.0-48.0) % MCV (80-98) fL MCH (27-31) pg MCHC (32-36) % Plt Count (150-400) K/uL Neut % (Auto) (36-66) % Lymph % (Auto) (24-44) % [place] % (Auto) (2-6) % Eos % (Auto) (2-4) % Baso % (Auto) (0-1) % Sodium (140-148) mmol/L Potassium 3.1 L (3.6-5.2) mmol/L Chloride (100-108) mmol/L Carbon Dioxide (21-32) mmol/L Anion Gap (5.0-14.0) mmol/L BUN (7-18) mg/dL Creatinine (0.6-1.0) mg/dL Est Cr Clr Drug Dosing mL/min Estimated GFR (MDRD) (>60) Glucose (74-106) mg/dL Calcium (8.5-10.1) mg/dL Magnesium (1.8-2.4) mg/dL Ferritin (8-388) ng/ml Total Bilirubin (0.2-1.0) mg/dL AST (15-37) U/L ALT (12-78) U/L Alkaline Phosphatase (46-116) U/L Total Protein (6.4-8.2) g/dL Albumin (3.4-5.0) g/dL Globulin (2.3-3.5) g/dL Albumin/Globulin Ratio (1.2-2.2) Vitamin B12 (193-986) pg/ml Folate (8.6-58.9) ng/ml TSH, Ultra Sensitive (0.358-3.740) uIU/mL Influenza Type A RNA (NEGATIVE) RSV RNA (INAAT) (NEGATIVE) Influenza Type B RNA (NEGATIVE) SARS-CoV-2 RNA (ADWOA) (NEGATIVE) Blood Type O POSITIVE Gel Antibody Screen Negative Crossmatch See Detail 06/26/20 06/26/20 06/26/20 Range/Units 04:10 04:10 04:10 WBC 6.0 (4.5-11.0) K/uL RBC 2.67 L (3.30-5.50) M/uL Hgb 8.2 L (12.0-15.0) g/dL Hct 25.1 L (36.0-48.0) % MCV 94 (80-98) fL MCH 31 (27-31) pg MCHC 33 (32-36) % Plt Count 357 (150-400) K/uL Neut % (Auto) 52 (36-66) % Lymph % (Auto) 37 (24-44) % [place] % (Auto) 10 H (2-6) % Eos % (Auto) 2 (2-4) % Baso % (Auto) 0 (0-1) % Sodium 145 (140-148) mmol/L Potassium 3.4 L (3.6-5.2) mmol/L Chloride 109 H (100-108) mmol/L Carbon Dioxide 27 (21-32) mmol/L Anion Gap 12.4 (5.0-14.0) mmol/L BUN 9 D (7-18) mg/dL Creatinine 0.5 L (0.6-1.0) mg/dL Est Cr Clr Drug Dosing 97.48 mL/min Estimated GFR (MDRD) > 60 (>60) Glucose 98 (74-106) mg/dL Calcium 7.7 L D (8.5-10.1) mg/dL Magnesium 2.3 D (1.8-2.4) mg/dL Ferritin (8-388) ng/ml Total Bilirubin 0.3 (0.2-1.0) mg/dL AST 14 L (15-37) U/L ALT 15 (12-78) U/L Alkaline Phosphatase 61 (46-116) U/L Total Protein 5.2 L (6.4-8.2) g/dL Albumin 2.6 L (3.4-5.0) g/dL Globulin 2.6 (2.3-3.5) g/dL Albumin/Globulin Ratio 1.0 L (1.2-2.2) Vitamin B12 (193-986) pg/ml Folate (8.6-58.9) ng/ml TSH, Ultra Sensitive 0.961 (0.358-3.740) uIU/mL Influenza Type A RNA (NEGATIVE) RSV RNA (INAAT) (NEGATIVE) Influenza Type B RNA (NEGATIVE) SARS-CoV-2 RNA (ADWOA) (NEGATIVE) Blood Type Gel Antibody Screen Crossmatch 06/26/20 06/26/20 06/26/20 Range/Units 04:18 05:49 05:51 WBC (4.5-11.0) K/uL RBC (3.30-5.50) M/uL Hgb (12.0-15.0) g/dL Hct (36.0-48.0) % MCV (80-98) fL MCH (27-31) pg MCHC (32-36) % Plt Count (150-400) K/uL Neut % (Auto) (36-66) % Lymph % (Auto) (24-44) % [place] % (Auto) (2-6) % Eos % (Auto) (2-4) % Baso % (Auto) (0-1) % Sodium (140-148) mmol/L Potassium (3.6-5.2) mmol/L Chloride (100-108) mmol/L Carbon Dioxide (21-32) mmol/L Anion Gap (5.0-14.0) mmol/L BUN (7-18) mg/dL Creatinine (0.6-1.0) mg/dL Est Cr Clr Drug Dosing mL/min Estimated GFR (MDRD) (>60) Glucose (74-106) mg/dL Calcium (8.5-10.1) mg/dL Magnesium (1.8-2.4) mg/dL Ferritin 16 (8-388) ng/ml Total Bilirubin (0.2-1.0) mg/dL AST (15-37) U/L ALT (12-78) U/L Alkaline Phosphatase (46-116) U/L Total Protein (6.4-8.2) g/dL Albumin (3.4-5.0) g/dL Globulin (2.3-3.5) g/dL Albumin/Globulin Ratio (1.2-2.2) Vitamin B12 > 2000 H (193-986) pg/ml Folate 22.8 (8.6-58.9) ng/ml TSH, Ultra Sensitive (0.358-3.740) uIU/mL Influenza Type A RNA Negflua (NEGATIVE) RSV RNA (INAAT) Negative (NEGATIVE) Influenza Type B RNA Negflub (NEGATIVE) SARS-CoV-2 RNA (ADWOA) Negative (NEGATIVE) Blood Type Gel Antibody Screen Crossmatch Dylan Results Last 24 Hours: Microbiology 06/25/20 11:19 Stool Occult Blood (DYLAN) - Final Stool / Feces - Stool, Formed Med Orders - Current: Current Medications Acetaminophen (Tylenol) 650 mg PO Q4H PRN PRN Reason: Pain (Mild 1-3)/fever Last Admin: 06/26/20 11:17 Dose: 650 mg Documented by: Bisacodyl (Dulcolax) 10 mg PO ONETIME ONE Stop: 06/26/20 20:01 Citalopram Hydrobromide (Celexa) 40 mg PO DAILY [facility] Last Admin: 06/26/20 10:30 Dose: 40 mg Documented by: Sodium Chloride (Normal Saline) 1,000 mls @ 125 mls/hr IV ASDIRECTED [facility] Last Admin: 06/26/20 11:04 Dose: 125 mls/hr Documented by: Potassium Acetate 30 meq/ (Sodium Chloride) 265 mls @ 85 mls/hr IV ONETIME ONE Stop: 06/26/20 13:37 Last Admin: 06/26/20 11:04 Dose: 85 mls/hr Documented by: Ferric Sodium Gluconate Complex 250 mg/ Sodium Chloride 120 mls @ 30 mls/hr IV Q24H [facility] Stop: 06/27/20 18:59 Sodium Chloride (Normal Saline) 78 mls @ 3.5 mls/sec IV ASDIRECTED [facility] Stop: 06/26/20 13:00 Last Admin: 06/26/20 10:57 Dose: 3.5 mls/sec Documented by: Levothyroxine Sodium (Levothyroxine) 112 mcg PO ACBREAKFAST [facility] Last Admin: 06/26/20 10:29 Dose: Not Given Documented by: Levothyroxine Sodium (Levothyroxine) 25 mcg PO ACBREAKFAST [facility] Last Admin: 06/26/20 10:29 Dose: Not Given Documented by: Magnesium Oxide (Magnesium Oxide) 400 mg PO BID [facility] Last Admin: 06/26/20 10:31 Dose: 400 mg Documented by: Ondansetron HCl (Zofran) 4 mg IV Q4H PRN PRN Reason: Nausea/Vomiting Last Admin: 06/26/20 12:11 Dose: 4 mg Documented by: Pantoprazole Sodium (Protonix Iv) 40 mg IV Q12H [facility] Last Admin: 06/26/20 03:59 Dose: 40 mg Documented by: Polyethylene Glycol (Miralax) 238 gm PO ONETIME ONE Stop: 06/26/20 17:01 Potassium Chloride (Klor-Con M20) 20 meq PO DAILY [facility] Last Admin: 06/26/20 10:31 Dose: 20 meq Documented by: Sodium Chloride (Saline Flush) 10 ml FLUSH ASDIRECTED PRN PRN Reason: Keep Vein Open Discontinued Medications Bisacodyl (Dulcolax) 10 mg PO ONETIME ONE Stop: 06/25/20 16:08 Last Admin: 06/25/20 18:58 Dose: 10 mg Documented by: Bisacodyl (Dulcolax) 10 mg PO ONETIME ONE Stop: 06/25/20 20:01 Last Admin: 06/25/20 20:35 Dose: 10 mg Documented by: Bisacodyl (Dulcolax) Confirm Administered Dose 10 mg .ROUTE .STK-MED ONE Stop: 06/25/20 20:19 Last Admin: 06/25/20 20:35 Dose: Not Given Documented by: Bisacodyl (Dulcolax) 10 mg PO ONETIME ONE Stop: 06/26/20 10:01 Last Admin: 06/26/20 10:32 Dose: 10 mg Documented by: Fentanyl (Sublimaze) Confirm Administered Dose 100 mcg .ROUTE .STK-MED ONE Stop: 06/26/20 08:17 Potassium Chloride/Sodium Chloride (Normal Saline With 20 Meq Kcl) 1,000 mls @ 500 mls/hr IV ASDIRECTED [facility] Last Admin: 06/25/20 10:43 Dose: 500 mls/hr Documented by: Lactated Ringer's (Ringers, Lactated) 1,000 mls @ 1,000 mls/hr IV BOLUS ONE Stop: 06/25/20 14:19 Last Admin: 06/25/20 13:26 Dose: 1,000 mls/hr Documented by: Magnesium Sulfate (Magnesium Sulfate In Water 2 Gm/50 Ml) 2 gm in 50 mls @ 12.5 mls/hr IV Q6H [facility] Stop: 06/26/20 01:44 Last Admin: 06/25/20 22:23 Dose: 12.5 mls/hr Documented by: Potassium Chloride 40 meq/ (Premix) 100 mls @ 25 mls/hr IV ONETIME ONE Stop: 06/25/20 19:44 Potassium Chloride 20 meq/ (Premix) 100 mls @ 50 mls/hr IV Q2H [facility] Stop: 06/25/20 20:59 Last Admin: 06/25/20 19:59 Dose: 50 mls/hr Documented by: Iopamidol (Isovue-300 (61%)) 124 ml IV ONETIME ONE Stop: 06/26/20 10:46 Last Admin: 06/26/20 10:57 Dose: 124 ml Documented by: Lidocaine HCl (Xylocaine-Mpf 1%) 5 ml INJECT ONETIME ONE Stop: 06/25/20 17:51 Last Admin: 06/25/20 18:03 Dose: 2 ml Documented by: Magnesium Oxide (Magnesium Oxide) 800 mg PO ONETIME ONE Stop: 06/25/20 10:37 Last Admin: 06/25/20 10:43 Dose: 800 mg Documented by: Magnesium Oxide (Magnesium Oxide) 400 mg PO BID CLEMENTE Polyethylene Glycol (Miralax) 238 gm PO ONETIME ONE Stop: 06/25/20 17:01 Last Admin: 06/25/20 20:00 Dose: 238 gm Documented by: Potassium Chloride (Klor-Con M20) 20 meq PO ONETIME ONE Stop: 06/25/20 10:26 Last Admin: 06/25/20 10:40 Dose: 20 meq Documented by: Potassium Chloride (Klor-Con M20) 40 meq PO ONETIME ONE Stop: 06/25/20 16:12 Last Admin: 06/25/20 17:26 Dose: 40 meq Documented by: Propofol (Diprivan 20 Ml) Confirm Administered Dose 200 mg .ROUTE .STK-MED ONE Stop: 06/26/20 08:17 Sodium Chloride (Saline Flush) 10 ml FLUSH ASDIRECTED PRN PRN Reason: Keep Vein Open Last Admin: 06/25/20 10:45 Dose: 10 ml Documented by: - Exam Quality Assessment: No: Supplemental Oxygen General: Alert, Oriented, Cooperative, No Acute Distress Lungs: Normal Respiratory Effort. No: Wheezing Cardiovascular: Regular Rate, Regular Rhythm GI/Abdominal Exam: Soft, No Distention Extremities: No Pedal Edema. No: Increased Warmth Skin: Warm, Dry Psy/Mental Status: Alert, Normal Affect - Patient Data Lab Results Last 24 hrs: Laboratory Results - last 24 hr 06/25/20 06/25/20 06/25/20 Range/Units 15:18 15:18 15:18 WBC (4.5-11.0) K/uL RBC (3.30-5.50) M/uL Hgb 7.7 L (12.0-15.0) g/dL Hct (36.0-48.0) % MCV (80-98) fL MCH (27-31) pg MCHC (32-36) % Plt Count (150-400) K/uL Neut % (Auto) (36-66) % Lymph % (Auto) (24-44) % [place] % (Auto) (2-6) % Eos % (Auto) (2-4) % Baso % (Auto) (0-1) % Sodium (140-148) mmol/L Potassium 3.1 L (3.6-5.2) mmol/L Chloride (100-108) mmol/L Carbon Dioxide (21-32) mmol/L Anion Gap (5.0-14.0) mmol/L BUN (7-18) mg/dL Creatinine (0.6-1.0) mg/dL Est Cr Clr Drug Dosing mL/min Estimated GFR (MDRD) (>60) Glucose (74-106) mg/dL Calcium (8.5-10.1) mg/dL Magnesium (1.8-2.4) mg/dL Ferritin (8-388) ng/ml Total Bilirubin (0.2-1.0) mg/dL AST (15-37) U/L ALT (12-78) U/L Alkaline Phosphatase (46-116) U/L Total Protein (6.4-8.2) g/dL Albumin (3.4-5.0) g/dL Globulin (2.3-3.5) g/dL Albumin/Globulin Ratio (1.2-2.2) Vitamin B12 (193-986) pg/ml Folate (8.6-58.9) ng/ml TSH, Ultra Sensitive (0.358-3.740) uIU/mL Influenza Type A RNA (NEGATIVE) RSV RNA (INAAT) (NEGATIVE) Influenza Type B RNA (NEGATIVE) SARS-CoV-2 RNA (ADWOA) (NEGATIVE) Blood Type O POSITIVE Gel Antibody Screen Negative Crossmatch See Detail 06/26/20 06/26/20 06/26/20 Range/Units 04:10 04:10 04:10 WBC 6.0 (4.5-11.0) K/uL RBC 2.67 L (3.30-5.50) M/uL Hgb 8.2 L (12.0-15.0) g/dL Hct 25.1 L (36.0-48.0) % MCV 94 (80-98) fL MCH 31 (27-31) pg MCHC 33 (32-36) % Plt Count 357 (150-400) K/uL Neut % (Auto) 52 (36-66) % Lymph % (Auto) 37 (24-44) % [place] % (Auto) 10 H (2-6) % Eos % (Auto) 2 (2-4) % Baso % (Auto) 0 (0-1) % Sodium 145 (140-148) mmol/L Potassium 3.4 L (3.6-5.2) mmol/L Chloride 109 H (100-108) mmol/L Carbon Dioxide 27 (21-32) mmol/L Anion Gap 12.4 (5.0-14.0) mmol/L BUN 9 D (7-18) mg/dL Creatinine 0.5 L (0.6-1.0) mg/dL Est Cr Clr Drug Dosing 97.48 mL/min Estimated GFR (MDRD) > 60 (>60) Glucose 98 (74-106) mg/dL Calcium 7.7 L D (8.5-10.1) mg/dL Magnesium 2.3 D (1.8-2.4) mg/dL Ferritin (8-388) ng/ml Total Bilirubin 0.3 (0.2-1.0) mg/dL AST 14 L (15-37) U/L ALT 15 (12-78) U/L Alkaline Phosphatase 61 (46-116) U/L Total Protein 5.2 L (6.4-8.2) g/dL Albumin 2.6 L (3.4-5.0) g/dL Globulin 2.6 (2.3-3.5) g/dL Albumin/Globulin Ratio 1.0 L (1.2-2.2) Vitamin B12 (193-986) pg/ml Folate (8.6-58.9) ng/ml TSH, Ultra Sensitive 0.961 (0.358-3.740) uIU/mL Influenza Type A RNA (NEGATIVE) RSV RNA (INAAT) (NEGATIVE) Influenza Type B RNA (NEGATIVE) SARS-CoV-2 RNA (ADWOA) (NEGATIVE) Blood Type Gel Antibody Screen Crossmatch 06/26/20 06/26/20 06/26/20 Range/Units 04:18 05:49 05:51 WBC (4.5-11.0) K/uL RBC (3.30-5.50) M/uL Hgb (12.0-15.0) g/dL Hct (36.0-48.0) % MCV (80-98) fL MCH (27-31) pg MCHC (32-36) % Plt Count (150-400) K/uL Neut % (Auto) (36-66) % Lymph % (Auto) (24-44) % [place] % (Auto) (2-6) % Eos % (Auto) (2-4) % Baso % (Auto) (0-1) % Sodium (140-148) mmol/L Potassium (3.6-5.2) mmol/L Chloride (100-108) mmol/L Carbon Dioxide (21-32) mmol/L Anion Gap (5.0-14.0) mmol/L BUN (7-18) mg/dL Creatinine (0.6-1.0) mg/dL Est Cr Clr Drug Dosing mL/min Estimated GFR (MDRD) (>60) Glucose (74-106) mg/dL Calcium (8.5-10.1) mg/dL Magnesium (1.8-2.4) mg/dL Ferritin 16 (8-388) ng/ml Total Bilirubin (0.2-1.0) mg/dL AST (15-37) U/L ALT (12-78) U/L Alkaline Phosphatase (46-116) U/L Total Protein (6.4-8.2) g/dL Albumin (3.4-5.0) g/dL Globulin (2.3-3.5) g/dL Albumin/Globulin Ratio (1.2-2.2) Vitamin B12 > 2000 H (193-986) pg/ml Folate 22.8 (8.6-58.9) ng/ml TSH, Ultra Sensitive (0.358-3.740) uIU/mL Influenza Type A RNA Negflua (NEGATIVE) RSV RNA (INAAT) Negative (NEGATIVE) Influenza Type B RNA Negflub (NEGATIVE) SARS-CoV-2 RNA (ADWOA) Negative (NEGATIVE) Blood Type Gel Antibody Screen Crossmatch Result Diagrams: 06/26/20 04:10 06/26/20 04:10 Dylan Results Last 24 hrs: Microbiology 06/25/20 11:19 Stool Occult Blood (DYLAN) - Final Stool / Feces - Stool, Formed Sepsis Event Note - Evaluation Sepsis Screening Result: No Definite Risk - Focused Exam Vital Signs: Vital Signs Temp Temp Pulse Resp BP Pulse Ox 06/26/20 11:47 36.6 C 79 24 H 99/54 L 06/26/20 11:40 36.4 C 80 18 115/57 L 06/26/20 11:30 36.2 C 78 14 117/68 06/26/20 11:23 36.3 C 80 26 H 107/61 06/26/20 10:09 78 15 116/66 98 06/26/20 09:17 36.2 C 72 17 116/65 96 06/26/20 09:10 35.2 C L 75 16 102/57 L 97 06/26/20 09:05 75 16 106/53 L 97 06/26/20 09:00 75 16 100/53 L 98 06/26/20 08:55 75 16 100/52 L 98 06/26/20 08:50 35.5 C L 75 16 97/51 L 98 06/26/20 08:00 36.5 C 77 16 108/52 L 97 06/26/20 04:00 36.4 C 13 114/66 96 - Problem List Review Problem List Initiated/Reviewed/Updated: Yes - My Orders Last 24 Hours: My Active Orders 06/26/20 10:45 Sodium Chloride 0.9% [Normal Saline] 78 ml IV ASDIRECTED 06/26/20 12:17 Antiembolic Devices [RC] .Routine SCD [Sequential Compression Device] [OM.PC] Routine 06/26/20 12:30 Sodium Chloride 0.9% [Normal Saline] 1,000 ml IV ASDIRECTED - Plan Plan:: ASSESSMENT AND PLAN GI BLEED, suspected-likely acute/subacute with symptomatic anemia without obvious source of blood loss. EGD unremarkable. Colonoscopy could not be completed because of poor prep. CT scan of the abdomen and pelvis is pending. -Transfuse 1 unit of red blood cells because of active bleeding and symptoms -Hold 2 unit of red blood cells -Clear liquid diet, n.p.o. after midnight -Serial hemoglobin levels -Protonix 40 mg IV every 12 hours -Follow-up CT scan -colonoscopy in a.m. ACUTE BLOOD LOSS ANEMIA-secondary to suspected GI bleed. She has required 2 units of blood via transfusion so far. -Evaluation and management as above SYNCOPE/NEAR SYNCOPE-likely secondary to active bleeding/intravascular volume depletion. Still orthostatic. -Cardiac monitoring -Transfuse as above MAINTENANCE ISSUES -DVT prophylaxis; SCUDs, hold on anticoagulation because of active bleed -GI prophylaxis; Protonix as above -Willis catheter; not indicated -Nutrition; clear liquid diet, n.p.o. after midnight DISPOSITION-anticipate discharge to home after the hospital stay. MD louise Oakley
[2020-06-26] MEDS ORDERED: Sodium Chloride 0.9% 1,000 ML IV SCH (12:30)
--- NOTE | 2020-06-26 13:35 | CT ---
Abdomen Pelvis w Cont CLINICAL HISTORY: Bloody stool COMPARISON: 2018. TECHNIQUE: Transverse scans were obtained from the base of the lungs to the pubic symphysis following oral contrast and IV infusion of contrast.Auto dosage reduction and iterative reconstructiontechniques employed. FINDINGS: The lung bases are clear. The liver there is a stable 9 mm low-attenuation focus in the dome of the liver. The gallbladder has been removed. The spleen has a normal size and shape. The patient has had previous bariatric surgery. There is no evidence of extravasation or obstruction. There is a small hiatal hernia.. The pancreas shows some atrophic changes. The adrenal glands appear normal bilaterally . There is scarring in the lower pole of the left kidney. There are multiple calcifications some of which appear parenchymal. The largest measures 9 mm. There is no hydronephrosis. The ureters have a normal course and caliber. The bladder has a normal contour The aorta has a normal contour. There is no suspicious retroperitoneal adenopathy. The small intestinal configuration is nonacute. The appendix has been removed. There is some mucosal thickening in the mid descending colon beginning at the ileocecal valve and ascending to the hepatic flexure. There is some segmental enhancement in the mid ascending colon. Transverse and descending colon have a normal contour. There is liquid stool in the rectum. IMPRESSION: Segmental thickening of the ascending colon and hepatic flexure. There is circumferential segmental mucosal enhancement in the mid descending colon. This may all be inflammatory. Neoplasm is not excluded Status post bariatric surgery Scarring lower pole left kidney similar to 2018 study with a few parenchymal type calcifications
[2020-06-26] MEDS ORDERED: Sodium Ferric Gluconate Cmplex 250 MG in Sodium Chloride 0.9% 100 ML IV SCH (15:00)
[2020-06-26] MEDS ORDERED: Polyethylene Glycol 3350 Powder 238 GM Bot PO ONE (17:00)
[2020-06-27] MEDS: Pantoprazole 40 MG Vial IV SCH ×2 (04:41→21:02)
[2020-06-27] MEDS ORDERED: fentaNYL 100 MCG/2 ML SDV ONE ×4 (07:11→15:25)
[2020-06-27] MEDS ORDERED: Propofol 200 MG/20 ML SDV ONE ×3 (07:12→08:55)
[2020-06-27] MEDS ORDERED: Midazolam 1 MG/ML 2 ML SDV ONE ×2 (07:12→08:45)
[2020-06-27] MEDS ORDERED: Rocuronium 50 MG/5 ML Vial ONE ×2 (08:55→14:56)
[2020-06-27] MEDS ORDERED: Dexamethasone 4 MG/ML SDV ONE (08:55)
[2020-06-27] MEDS ORDERED: Glycopyrrolate 0.2 MG/ML 5 ML MDV ONE (08:55)
[2020-06-27] MEDS ORDERED: Ondansetron 4 MG/2 ML SDV ONE (08:55)
[2020-06-27] MEDS ORDERED: Neostigmine Methylsulfate 1 MG/ML 5 ML Syringe ONE (08:55)
[2020-06-27] MEDS ORDERED: Sodium Chloride 0.9% 10 ML ONE (08:56)
[2020-06-27] MEDS: Potassium Phos in 0.9 % NaCl 15 MMOL in Premix Bag 1 BAG IV SCH ×4 (08:58→11:20)
[2020-06-27] MEDS ORDERED: Naloxone 0.4 MG/ML SDV IVPUSH PRN (09:00)
[2020-06-27] MEDS ORDERED: Dextrose 5%-Lactated Ringers 1,000 ML IV SCH (09:00)
--- NOTE | 2020-06-27 09:25 | PCM.PN ---
- General Info Date of Service: 06/27/20 Subjective Update: There were no acute events overnight. She tolerated her colonoscopy prep well. No significant abdominal pain. No dizziness or lightheadedness. She has not parham d any fevers. Unfortunately her colonoscopy showed a mass in the ascending colon concerning for colon cancer. The patient is scheduled for exploratory laparotomy and probable right colon resection this afternoon. - Review of Systems General: Denies: Fever - Patient Data Vitals - Most Recent: Last Vital Signs Temp 36.3 C 06/27/20 09:22 Pulse 77 06/27/20 09:22 Resp 14 06/27/20 09:22 BP 132/81 06/27/20 09:22 Pulse Ox 97 06/27/20 09:22 Orthostatic Blood Pressure [ 89/59 Standing] Orthostatic Blood Pressure [ 100/61 Sitting] Orthostatic Blood Pressure [ 95/51 Supine] Weight - Most Recent: 85.729 kg I&O - Last 24 Hours: Intake & Output 06/26/20 06/27/20 06/27/20 22:59 06:59 14:59 Intake Total 4050 1650 Output Total 500 1600 Balance 3550 50 Lab Results Last 24 Hours: Laboratory Results - last 24 hr 06/25/20 06/26/20 06/27/20 Range/Units 15:18 15:30 05:00 WBC 5.1 (4.5-11.0) K/uL RBC 3.31 (3.30-5.50) M/uL Hgb 9.0 L 9.9 L (12.0-15.0) g/dL Hct 27.9 L 30.4 L (36.0-48.0) % MCV 92 (80-98) fL MCH 30 (27-31) pg MCHC 33 (32-36) % Plt Count 334 (150-400) K/uL Neut % (Auto) 64 (36-66) % Lymph % (Auto) 24 (24-44) % [place] % (Auto) 10 H (2-6) % Eos % (Auto) 2 (2-4) % Baso % (Auto) 0 (0-1) % Sodium (140-148) mmol/L Potassium (3.6-5.2) mmol/L Chloride (100-108) mmol/L Carbon Dioxide (21-32) mmol/L Anion Gap (5.0-14.0) mmol/L BUN (7-18) mg/dL Creatinine (0.6-1.0) mg/dL Est Cr Clr Drug Dosing mL/min Estimated GFR (MDRD) (>60) Glucose (74-106) mg/dL Calcium (8.5-10.1) mg/dL Phosphorus (2.5-4.9) mg/dL Magnesium (1.8-2.4) mg/dL Total Bilirubin (0.2-1.0) mg/dL AST (15-37) U/L ALT (12-78) U/L Alkaline Phosphatase (46-116) U/L Total Protein (6.4-8.2) g/dL Albumin (3.4-5.0) g/dL Globulin (2.3-3.5) g/dL Albumin/Globulin Ratio (1.2-2.2) Blood Type O POSITIVE Gel Antibody Screen Negative Crossmatch See Detail 06/27/20 Range/Units 05:00 WBC (4.5-11.0) K/uL RBC (3.30-5.50) M/uL Hgb (12.0-15.0) g/dL Hct (36.0-48.0) % MCV (80-98) fL MCH (27-31) pg MCHC (32-36) % Plt Count (150-400) K/uL Neut % (Auto) (36-66) % Lymph % (Auto) (24-44) % [place] % (Auto) (2-6) % Eos % (Auto) (2-4) % Baso % (Auto) (0-1) % Sodium 144 (140-148) mmol/L Potassium 3.1 L (3.6-5.2) mmol/L Chloride 109 H (100-108) mmol/L Carbon Dioxide 25 (21-32) mmol/L Anion Gap 13.1 (5.0-14.0) mmol/L BUN 3 L D (7-18) mg/dL Creatinine 0.4 L (0.6-1.0) mg/dL Est Cr Clr Drug Dosing 121.15 mL/min Estimated GFR (MDRD) > 60 (>60) Glucose 96 (74-106) mg/dL Calcium 7.9 L (8.5-10.1) mg/dL Phosphorus 1.9 L (2.5-4.9) mg/dL Magnesium 2.0 (1.8-2.4) mg/dL Total Bilirubin 0.2 (0.2-1.0) mg/dL AST 19 (15-37) U/L ALT 19 (12-78) U/L Alkaline Phosphatase 64 (46-116) U/L Total Protein 5.2 L (6.4-8.2) g/dL Albumin 2.6 L (3.4-5.0) g/dL Globulin 2.6 (2.3-3.5) g/dL Albumin/Globulin Ratio 1.0 L (1.2-2.2) Blood Type Gel Antibody Screen Crossmatch Dylan Results Last 24 Hours: Microbiology 06/26/20 08:48 CLOtest - Final Stomach NEGATIVE CLOTEST REFERENCE RANGE: NEGATIVE Med Orders - Current: Current Medications Acetaminophen (Tylenol) 650 mg PO Q4H PRN PRN Reason: Pain (Mild 1-3)/fever Last Admin: 06/26/20 11:17 Dose: 650 mg Documented by: Alvimopan (Entereg) 12 mg PO ONETIME ONE Stop: 06/27/20 11:01 Citalopram Hydrobromide (Celexa) 40 mg PO DAILY [facility] Last Admin: 06/26/20 10:30 Dose: 40 mg Documented by: Ferric Sodium Gluconate Complex 250 mg/ Sodium Chloride 120 mls @ 30 mls/hr IV Q24H [facility] Stop: 06/27/20 18:59 Last Admin: 06/26/20 15:28 Dose: 30 mls/hr Documented by: Cefoxitin Sodium 2 gm/ Sodium (Chloride) 50 mls @ 100 mls/hr IV ONCALL ONE Stop: 06/27/20 12:29 Potassium Phosphate 15 mmol/ (Premix) 250 mls @ 125 mls/hr IV Q2H [facility] Stop: 06/27/20 12:59 Last Admin: 06/27/20 08:58 Dose: 100 mls/hr Documented by: Dextrose/Lactated Ringer's (Dextrose 5%-Lactated Ringers) 1,000 mls @ 100 mls/hr IV ASDIRECTED [facility] Last Admin: 06/27/20 08:57 Dose: 100 mls/hr Documented by: Ketamine HCl 50 mg/ Sodium (Chloride) 50 mls @ 17.34 mls/hr IV ASDIRECTED [facility] Fentanyl 2,500 mcg/ Sodium (Chloride) 250 mls @ 0 mls/hr EPIDUR TITRATE [facility]; Protocol Ketamine HCl (Ketalar) 29 mg IV ASDIRECTED [facility] Levothyroxine Sodium (Levothyroxine) 112 mcg PO ACBREAKFAST [facility] Last Admin: 06/26/20 10:29 Dose: Not Given Documented by: Levothyroxine Sodium (Levothyroxine) 25 mcg PO ACBREAKFAST [facility] Last Admin: 06/26/20 10:29 Dose: Not Given Documented by: Magnesium Oxide (Magnesium Oxide) 400 mg PO BID [facility] Last Admin: 06/26/20 20:58 Dose: 400 mg Documented by: Naloxone HCl (Narcan) 0.1 mg IVPUSH Q5M PRN PRN Reason: RESP RATE LESS THAN 6/MINUTE Ondansetron HCl (Zofran) 4 mg IV Q4H PRN PRN Reason: Nausea/Vomiting Last Admin: 06/26/20 12:11 Dose: 4 mg Documented by: Pantoprazole Sodium (Protonix Iv) 40 mg IV Q12H [facility] Last Admin: 06/27/20 04:41 Dose: 40 mg Documented by: Potassium Chloride (Klor-Con M20) 20 meq PO DAILY [facility] Last Admin: 06/26/20 10:31 Dose: 20 meq Documented by: Sodium Chloride (Saline Flush) 10 ml FLUSH ASDIRECTED PRN PRN Reason: Keep Vein Open Discontinued Medications Bisacodyl (Dulcolax) 10 mg PO ONETIME ONE Stop: 06/25/20 16:08 Last Admin: 06/25/20 18:58 Dose: 10 mg Documented by: Bisacodyl (Dulcolax) 10 mg PO ONETIME ONE Stop: 06/25/20 20:01 Last Admin: 06/25/20 20:35 Dose: 10 mg Documented by: Bisacodyl (Dulcolax) Confirm Administered Dose 10 mg .ROUTE .STK-MED ONE Stop: 06/25/20 20:19 Last Admin: 06/25/20 20:35 Dose: Not Given Documented by: Bisacodyl (Dulcolax) 10 mg PO ONETIME ONE Stop: 06/26/20 10:01 Last Admin: 06/26/20 10:32 Dose: 10 mg Documented by: Bisacodyl (Dulcolax) 10 mg PO ONETIME ONE Stop: 06/26/20 20:01 Last Admin: 06/26/20 20:58 Dose: 10 mg Documented by: Dexamethasone (Decadron) Confirm Administered Dose 4 mg .ROUTE .STK-MED ONE Stop: 06/27/20 08:56 Fentanyl (Sublimaze) Confirm Administered Dose 100 mcg .ROUTE .STK-MED ONE Stop: 06/26/20 08:17 Fentanyl (Sublimaze) Confirm Administered Dose 100 mcg .ROUTE .STK-MED ONE Stop: 06/27/20 07:12 Fentanyl (Sublimaze) Confirm Administered Dose 100 mcg .ROUTE .STK-MED ONE Stop: 06/27/20 08:46 Fentanyl (Sublimaze) Confirm Administered Dose 100 mcg .ROUTE .STK-MED ONE Stop: 06/27/20 08:55 Glycopyrrolate (Robinul) Confirm Administered Dose 1 mg .ROUTE .STK-MED ONE Stop: 06/27/20 08:56 Potassium Chloride/Sodium Chloride (Normal Saline With 20 Meq Kcl) 1,000 mls @ 500 mls/hr IV ASDIRECTED [facility] Last Admin: 06/25/20 10:43 Dose: 500 mls/hr Documented by: Lactated Ringer's (Ringers, Lactated) 1,000 mls @ 1,000 mls/hr IV BOLUS ONE Stop: 06/25/20 14:19 Last Admin: 06/25/20 13:26 Dose: 1,000 mls/hr Documented by: Sodium Chloride (Normal Saline) 1,000 mls @ 125 mls/hr IV ASDIRECTED [facility] Last Admin: 06/26/20 11:04 Dose: 125 mls/hr Documented by: Magnesium Sulfate (Magnesium Sulfate In Water 2 Gm/50 Ml) 2 gm in 50 mls @ 12.5 mls/hr IV Q6H [facility] Stop: 06/26/20 01:44 Last Admin: 06/25/20 22:23 Dose: 12.5 mls/hr Documented by: Potassium Chloride 40 meq/ (Premix) 100 mls @ 25 mls/hr IV ONETIME ONE Stop: 06/25/20 19:44 Potassium Chloride 20 meq/ (Premix) 100 mls @ 50 mls/hr IV Q2H [facility] Stop: 06/25/20 20:59 Last Admin: 06/25/20 19:59 Dose: 50 mls/hr Documented by: Potassium Acetate 30 meq/ (Sodium Chloride) 265 mls @ 85 mls/hr IV ONETIME ONE Stop: 06/26/20 13:37 Last Admin: 06/26/20 11:04 Dose: 85 mls/hr Documented by: Sodium Chloride (Normal Saline) 78 mls @ 3.5 mls/sec IV ASDIRECTED [facility] Stop: 06/26/20 13:00 Last Admin: 06/26/20 10:57 Dose: 3.5 mls/sec Documented by: Sodium Chloride (Normal Saline) 1,000 mls @ 75 mls/hr IV ASDIRECTED [facility] Last Admin: 06/27/20 04:44 Dose: 75 mls/hr Documented by: Sodium Chloride (Normal Saline) Confirm Administered Dose 10 mls @ as directed .ROUTE .STK-MED ONE Stop: 06/27/20 08:57 Iopamidol (Isovue-300 (61%)) 124 ml IV ONETIME ONE Stop: 06/26/20 10:46 Last Admin: 06/26/20 10:57 Dose: 124 ml Documented by: Lidocaine HCl (Xylocaine-Mpf 1%) 5 ml INJECT ONETIME ONE Stop: 06/25/20 17:51 Last Admin: 06/25/20 18:03 Dose: 2 ml Documented by: Magnesium Oxide (Magnesium Oxide) 800 mg PO ONETIME ONE Stop: 06/25/20 10:37 Last Admin: 06/25/20 10:43 Dose: 800 mg Documented by: Magnesium Oxide (Magnesium Oxide) 400 mg PO BID [facility] Midazolam HCl (Versed 1 Mg/Ml) Confirm Administered Dose 2 mg .ROUTE .STK-MED ON E Stop: 06/27/20 07:13 Midazolam HCl (Versed 1 Mg/Ml) Confirm Administered Dose 2 mg .ROUTE .STK-MED ONE Stop: 06/27/20 08:46 Neostigmine Methylsulfate (Neostigmine) Confirm Administered Dose 5 mg .ROUTE .STK-MED ONE Stop: 06/27/20 08:56 Ondansetron HCl (Zofran) Confirm Administered Dose 4 mg .ROUTE .STK-MED ONE Stop: 06/27/20 08:56 Polyethylene Glycol (Miralax) 238 gm PO ONETIME ONE Stop: 06/25/20 17:01 Last Admin: 06/25/20 20:00 Dose: 238 gm Documented by: Polyethylene Glycol (Miralax) 238 gm PO ONETIME ONE Stop: 06/26/20 17:01 Last Admin: 06/26/20 16:56 Dose: 64 oz Documented by: Potassium Chloride (Klor-Con M20) 20 meq PO ONETIME ONE Stop: 06/25/20 10:26 Last Admin: 06/25/20 10:40 Dose: 20 meq Documented by: Potassium Chloride (Klor-Con M20) 40 meq PO ONETIME ONE Stop: 06/25/20 16:12 Last Admin: 06/25/20 17:26 Dose: 40 meq Documented by: Propofol (Diprivan 20 Ml) Confirm Administered Dose 200 mg .ROUTE .STK-MED ONE Stop: 06/26/20 08:17 Propofol (Diprivan 20 Ml) Confirm Administered Dose 200 mg .ROUTE .STK-MED ONE Stop: 06/27/20 07:13 Propofol (Diprivan 20 Ml) Confirm Administered Dose 200 mg .ROUTE .STK-MED ONE Stop: 06/27/20 08:46 Propofol (Diprivan 20 Ml) Confirm Administered Dose 200 mg .ROUTE .STK-MED ONE Stop: 06/27/20 08:56 Rocuronium [place] (Zemuron) Confirm Administered Dose 50 mg .ROUTE .STK-MED ONE Stop: 06/27/20 08:56 Sodium Chloride (Saline Flush) 10 ml FLUSH ASDIRECTED PRN PRN Reason: Keep Vein Open Last Admin: 06/25/20 10:45 Dose: 10 ml Documented by: - Exam Quality Assessment: No: Supplemental Oxygen General: Alert, Oriented, Cooperative, No Acute Distress Lungs: Normal Respiratory Effort GI/Abdominal Exam: Soft, No Distention Extremities: No Pedal Edema Psy/Mental Status: Alert, Normal Affect - Patient Data Lab Results Last 24 hrs: Laboratory Results - last 24 hr 06/25/20 06/26/20 06/27/20 Range/Units 15:18 15:30 05:00 WBC 5.1 (4.5-11.0) K/uL RBC 3.31 (3.30-5.50) M/uL Hgb 9.0 L 9.9 L (12.0-15.0) g/dL Hct 27.9 L 30.4 L (36.0-48.0) % MCV 92 (80-98) fL MCH 30 (27-31) pg MCHC 33 (32-36) % Plt Count 334 (150-400) K/uL Neut % (Auto) 64 (36-66) % Lymph % (Auto) 24 (24-44) % [place] % (Auto) 10 H (2-6) % Eos % (Auto) 2 (2-4) % Baso % (Auto) 0 (0-1) % Sodium (140-148) mmol/L Potassium (3.6-5.2) mmol/L Chloride (100-108) mmol/L Carbon Dioxide (21-32) mmol/L Anion Gap (5.0-14.0) mmol/L BUN (7-18) mg/dL Creatinine (0.6-1.0) mg/dL Est Cr Clr Drug Dosing mL/min Estimated GFR (MDRD) (>60) Glucose (74-106) mg/dL Calcium (8.5-10.1) mg/dL Phosphorus (2.5-4.9) mg/dL Magnesium (1.8-2.4) mg/dL Total Bilirubin (0.2-1.0) mg/dL AST (15-37) U/L ALT (12-78) U/L Alkaline Phosphatase (46-116) U/L Total Protein (6.4-8.2) g/dL Albumin (3.4-5.0) g/dL Globulin (2.3-3.5) g/dL Albumin/Globulin Ratio (1.2-2.2) Blood Type O POSITIVE Gel Antibody Screen Negative Crossmatch See Detail 06/27/20 Range/Units 05:00 WBC (4.5-11.0) K/uL RBC (3.30-5.50) M/uL Hgb (12.0-15.0) g/dL Hct (36.0-48.0) % MCV (80-98) fL MCH (27-31) pg MCHC (32-36) % Plt Count (150-400) K/uL Neut % (Auto) (36-66) % Lymph % (Auto) (24-44) % [place] % (Auto) (2-6) % Eos % (Auto) (2-4) % Baso % (Auto) (0-1) % Sodium 144 (140-148) mmol/L Potassium 3.1 L (3.6-5.2) mmol/L Chloride 109 H (100-108) mmol/L Carbon Dioxide 25 (21-32) mmol/L Anion Gap 13.1 (5.0-14.0) mmol/L BUN 3 L D (7-18) mg/dL Creatinine 0.4 L (0.6-1.0) mg/dL Est Cr Clr Drug Dosing 121.15 mL/min Estimated GFR (MDRD) > 60 (>60) Glucose 96 (74-106) mg/dL Calcium 7.9 L (8.5-10.1) mg/dL Phosphorus 1.9 L (2.5-4.9) mg/dL Magnesium 2.0 (1.8-2.4) mg/dL Total Bilirubin 0.2 (0.2-1.0) mg/dL AST 19 (15-37) U/L ALT 19 (12-78) U/L Alkaline Phosphatase 64 (46-116) U/L Total Protein 5.2 L (6.4-8.2) g/dL Albumin 2.6 L (3.4-5.0) g/dL Globulin 2.6 (2.3-3.5) g/dL Albumin/Globulin Ratio 1.0 L (1.2-2.2) Blood Type Gel Antibody Screen Crossmatch Result Diagrams: 06/27/20 05:00 06/27/20 05:00 Dylan Results Last 24 hrs: Microbiology 06/26/20 08:48 CLOtest - Final Stomach NEGATIVE CLOTEST REFERENCE RANGE: NEGATIVE Sepsis Event Note - Evaluation Sepsis Screening Result: No Definite Risk - Focused Exam Vital Signs: Vital Signs Temp Temp Temp Pulse Resp BP Pulse Ox 06/27/20 09:22 36.3 C 77 14 132/81 97 06/27/20 09:05 36.2 C 68 12 114/64 98 06/27/20 08:50 36.2 C 75 11 L 141/69 H 94 L 06/27/20 08:26 36.1 C 75 16 106/60 94 L 06/27/20 08:21 72 14 103/59 L 94 L 06/27/20 08:15 74 14 99/55 L 94 L 06/27/20 08:11 74 14 99/54 L 98 06/27/20 08:05 35.8 C L 78 14 92/55 L 98 06/27/20 06:00 73 11 L 129/71 92 L 06/27/20 04:00 36.4 C 76 18 118/71 90 L 06/27/20 02:00 78 23 H 123/60 90 L 06/27/20 00:21 36.4 C 75 20 138/79 91 L 06/27/20 00:15 36.4 C 81 15 154/74 H 96 06/27/20 00:00 36.4 C 76 16 154/74 H 97 06/26/20 23:45 36.8 C 76 17 149/85 H 92 L 06/26/20 23:15 36.8 C 83 18 149/81 H 96 06/26/20 23:00 36.4 C 73 12 144/78 H 90 L 06/26/20 22:45 36.6 C 76 13 136/76 92 L 06/26/20 22:30 36.6 C 73 11 L 129/73 92 L 06/26/20 22:00 36.6 C 76 16 129/73 91 L - Problem List Review Problem List Initiated/Reviewed/Updated: Yes - My Orders Last 24 Hours: My Active Orders 06/26/20 12:17 Antiembolic Devices [RC] .Routine SCD [Sequential Compression Device] [OM.PC] Routine - Plan Plan:: ASSESSMENT AND PLAN GI BLEED, suspected-likely acute/subacute with symptomatic anemia due to suspected right colon cancer discovered with colonoscopy today. The plan is for surgical management as discussed below. Her hemoglobin is stable at this time. -Hold 2 unit of red blood cells -Nothing by mouth -Serial hemoglobin levels -Protonix 40 mg IV every 12 hours Probable colon cancer-ascending colon mass noted on colonoscopy today. This was likely the source of bleeding. Surgical intervention is planned later today. -Surgical intervention and postoperative care as per Dr. Buckner ACUTE BLOOD LOSS ANEMIA-secondary to gastrointestinal blood loss likely from colon cancer. She has required 2 units of blood via transfusion so far. -management as above SYNCOPE/NEAR SYNCOPE-likely secondary to active bleeding/intravascular volume depletion. Orthostasis has resolved. -Cardiac monitoring MAINTENANCE ISSUES -DVT prophylaxis; SCUDs, hold on anticoagulation because of active bleed -GI prophylaxis; Protonix as above -Willis catheter; not indicated -Nutrition; nothing by mouth DISPOSITION-anticipate discharge to home after the hospital stay. MD louise Oakley
[2020-06-27] MEDS: Potassium Chloride 20 MEQ Tab.ER PO SCH (09:29)
[2020-06-27] MEDS: Magnesium Oxide 400 MG Tab PO SCH (09:29)
[2020-06-27] MEDS: Citalopram 20 MG Tab PO SCH (09:29)
[2020-06-27] MEDS: Levothyroxine 25 MCG Tab PO SCH (09:29)
[2020-06-27] MEDS: Levothyroxine 112 MCG Tab PO SCH (09:29)
[2020-06-27] MEDS ORDERED: Meropenem 500 MG SDV ONE (10:44)
[2020-06-27] MEDS ORDERED: Bupivacaine 0.5% 50 ML MDV ONE (11:46)
[2020-06-27] MEDS ORDERED: Lidocaine 1% with EPINEPHrine 1:100,000 50 ML MDV ONE (11:56)
[2020-06-27] MEDS ORDERED: Ketamine 50 MG in Sodium Chloride 0.9% 49.5 ML IV SCH (12:00)
[2020-06-27] MEDS ORDERED: Ketamine 500 MG/5 ML MDV IV SCH (12:00)
[2020-06-27] MEDS: cefOXitin 2 GM in Sodium Chloride 0.9% 50 ML IV ONE ×3 (13:46→17:34)
[2020-06-27] MEDS ORDERED: Lactated Ringers 1,000 ML ONE (14:57)
[2020-06-27] MEDS ORDERED: Scopolamine 1.5 MG Transdermal Patch TOP PRN (16:32)
[2020-06-27] MEDS: fentaNYL 2,500 MCG in Sodium Chloride 0.9% 200 ML EPIDUR SCH (16:42)
[2020-06-27] MEDS ORDERED: hydrOXYzine HCL 100 MG/2 ML SDV IM PRN (17:00)
[2020-06-27] MEDS: Dextrose 5%-Lactated Ringers 1,000 ML IV SCH (19:42)
[2020-06-27] MEDS: cefOXitin 2 GM in Sodium Chloride 0.9% 50 ML IV SCH (21:02)
[2020-06-28] MEDS: Dextrose 5%-Lactated Ringers 1,000 ML IV SCH (02:05)
[2020-06-28] MEDS: cefOXitin 2 GM in Sodium Chloride 0.9% 50 ML IV SCH ×3 (02:17→14:17)
[2020-06-28] MEDS ORDERED: Dextrose 5%-Lactated Ringers 1,000 ML IV SCH (07:30)
[2020-06-28] MEDS: Levothyroxine 25 MCG Tab PO SCH (07:30)
[2020-06-28] MEDS: Levothyroxine 112 MCG Tab PO SCH (07:31)
[2020-06-28] MEDS ORDERED: Naloxone 0.4 MG/ML SDV IV PRN (08:00)
[2020-06-28] MEDS ORDERED: diphenhydrAMINE 50 MG/ML SDV IVPUSH PRN (08:00)
[2020-06-28] MEDS: fentaNYL 2,500 MCG in Sodium Chloride 0.9% 200 ML EPIDUR SCH (08:00)
[2020-06-28] MEDS: Dextrose 5%-Lactated Ringers 1,000 ML with Naloxone 0.4 MG IV SCH ×4 (08:03→18:36)
[2020-06-28] MEDS: Citalopram 20 MG Tab PO SCH (08:08)
[2020-06-28] MEDS: Bisacodyl 5 MG Tab PO SCH ×2 (08:09→20:03)
[2020-06-28] MEDS: Sennosides 8.6 MG Tab PO SCH ×2 (08:09→20:03)
[2020-06-28] MEDS: Potassium Phos in 0.9 % NaCl 15 MMOL in Premix Bag 1 BAG IV SCH ×6 (08:10→14:42)
[2020-06-28] MEDS: Ondansetron 4 MG/2 ML SDV IV PRN ×2 (08:11→15:14)
[2020-06-28] MEDS: Magnesium Sulfate/Water 2 GM/50 ML BAG IV SCH ×3 (09:06→21:26)
[2020-06-28] MEDS ORDERED: Sodium Ferric Gluconate Cmplex 250 MG in Sodium Chloride 0.9% 100 ML IV SCH (10:00)
--- NOTE | 2020-06-28 12:37 | PCM.PN ---
- General Info Date of Service: 06/28/20 Subjective Update: No acute events overnight. Patient had an uneventful pleura Aashish laparotomy with right colon resection, incarcerated incisional hernia release and small nodule removal. Pain is well controlled at this time with an epidural. Vital signs have been stable. She was on oxygen overnight but does not require today. She does not feel short of breath. No nausea. Hemoglobin level is stable. Functional Status: Reports: Pain Controlled - Patient Data Vitals - Most Recent: Last Vital Signs Temp 36.7 C 06/28/20 08:00 Pulse 71 06/28/20 06:00 Resp 17 06/28/20 10:00 BP 110/66 06/28/20 10:00 Pulse Ox 94 L 06/28/20 10:00 Orthostatic Blood Pressure [ 89/59 Standing] Orthostatic Blood Pressure [ 100/61 Sitting] Orthostatic Blood Pressure [ 95/51 Supine] Weight - Most Recent: 86.046 kg I&O - Last 24 Hours: Intake & Output 06/27/20 06/28/20 06/28/20 22:59 06:59 14:59 Intake Total 925 3302 Output Total 890 608 150 Balance 35 2694 -150 Lab Results Last 24 Hours: Laboratory Results - last 24 hr 06/25/20 06/27/20 06/28/20 Range/Units 15:18 08:55 04:27 WBC 9.0 (4.5-11.0) K/uL RBC 3.39 (3.30-5.50) M/uL Hgb 9.8 L (12.0-15.0) g/dL Hct 31.5 L (36.0-48.0) % MCV 93 (80-98) fL MCH 29 (27-31) pg MCHC 31 L (32-36) % Plt Count 328 (150-400) K/uL Sodium (140-148) mmol/L Potassium (3.6-5.2) mmol/L Chloride (100-108) mmol/L Carbon Dioxide (21-32) mmol/L Anion Gap (5.0-14.0) mmol/L BUN (7-18) mg/dL Creatinine (0.6-1.0) mg/dL Est Cr Clr Drug Dosing mL/min Estimated GFR (MDRD) (>60) Glucose (74-106) mg/dL Calcium (8.5-10.1) mg/dL Phosphorus (2.5-4.9) mg/dL Magnesium (1.8-2.4) mg/dL Total Bilirubin (0.2-1.0) mg/dL AST (15-37) U/L ALT (12-78) U/L Alkaline Phosphatase (46-116) U/L Total Protein (6.4-8.2) g/dL Albumin (3.4-5.0) g/dL Globulin (2.3-3.5) g/dL Albumin/Globulin Ratio (1.2-2.2) Carcinoembryonic Ag 1.6 (0.0-4.7) ng/mL Blood Type O POSITIVE Gel Antibody Screen Negative Crossmatch See Detail 06/28/20 Range/Units 04:27 WBC (4.5-11.0) K/uL RBC (3.30-5.50) M/uL Hgb (12.0-15.0) g/dL Hct (36.0-48.0) % MCV (80-98) fL MCH (27-31) pg MCHC (32-36) % Plt Count (150-400) K/uL Sodium 140 (140-148) mmol/L Potassium 3.8 (3.6-5.2) mmol/L Chloride 105 (100-108) mmol/L Carbon Dioxide 28 (21-32) mmol/L Anion Gap 7.4 (5.0-14.0) mmol/L BUN 3 L (7-18) mg/dL Creatinine 0.5 L (0.6-1.0) mg/dL Est Cr Clr Drug Dosing 96.92 mL/min Estimated GFR (MDRD) > 60 (>60) Glucose 145 H (74-106) mg/dL Calcium 7.6 L (8.5-10.1) mg/dL Phosphorus 2.6 (2.5-4.9) mg/dL Magnesium 1.6 L (1.8-2.4) mg/dL Total Bilirubin 0.2 (0.2-1.0) mg/dL AST 16 (15-37) U/L ALT 20 (12-78) U/L Alkaline Phosphatase 56 (46-116) U/L Total Protein 4.6 L (6.4-8.2) g/dL Albumin 2.2 L (3.4-5.0) g/dL Globulin 2.4 (2.3-3.5) g/dL Albumin/Globulin Ratio 0.9 L (1.2-2.2) Carcinoembryonic Ag (0.0-4.7) ng/mL Blood Type Gel Antibody Screen Crossmatch Dylan Results Last 24 Hours: Microbiology 06/26/20 08:48 CLOtest - Final Stomach NEGATIVE CLOTEST REFERENCE RANGE: NEGATIVE Med Orders - Current: Current Medications Alvimopan (Entereg) 12 mg PO BID [facility] Stop: 07/04/20 09:01 Last Admin: 06/28/20 08:09 Dose: 12 mg Documented by: Bisacodyl (Dulcolax) 10 mg PO BID [facility] Last Admin: 06/28/20 08:09 Dose: 10 mg Documented by: Citalopram Hydrobromide (Celexa) 40 mg PO DAILY [facility] Last Admin: 06/28/20 08:08 Dose: 40 mg Documented by: Ropivacaine 43 ml/Dexamethasone 8 mg/Epinephrine HCl 0.4 mg/ Sodium Chloride 34.6 ml 0 ml NERVRT ASDIRECTED [facility] Cyanocobalamin (Vitamin B12) 1,000 mcg IM ONETIME ONE Stop: 06/29/20 08:01 Diphenhydramine HCl (Benadryl) 25 - 50 mg IVPUSH Q6H PRN PRN Reason: ITCHING Hydroxyzine HCl (Vistaril) 75 mg IM Q4H PRN PRN Reason: pain Fentanyl 2,500 mcg/ Sodium (Chloride) 250 mls @ 0 mls/hr EPIDUR TITRATE [facility]; Protocol Last Admin: 06/28/20 08:00 Dose: 12 mls/hr, 12 mls/hr Documented by: Ferric Sodium Gluconate Complex 250 mg/ Sodium Chloride 120 mls @ 30 mls/hr IV Q24H [facility] Stop: 06/28/20 13:59 Last Admin: 06/28/20 09:55 Dose: 30 mls/hr Documented by: Cefoxitin Sodium 2 gm/ Sodium (Chloride) 50 mls @ 100 mls/hr IV Q6H [facility] Stop: 06/28/20 14:29 Last Admin: 06/28/20 07:31 Dose: 100 mls/hr Documented by: Magnesium Sulfate (Magnesium Sulfate In Water 2 Gm/50 Ml) 2 gm in 50 mls @ 25 mls/hr IV Q6H [facility] Stop: 06/30/20 05:59 Last Admin: 06/28/20 09:06 Dose: 25 mls/hr Documented by: Potassium Phosphate 15 mmol/ (Premix) 250 mls @ 85 mls/hr IV Q3H [facility] Stop: 06/28/20 17:57 Last Admin: 06/28/20 11:10 Dose: 85 mls/hr Documented by: Naloxone HCl 0.4 mg/ Dextrose/ (Lactated Ringer's) 1,001 mls @ 100 mls/hr IV .Q10H1M [facility] Last Admin: 06/28/20 08:03 Dose: 100 mls/hr Documented by: Levothyroxine Sodium (Levothyroxine) 112 mcg PO ACBREAKFAST [facility] Last Admin: 06/28/20 07:31 Dose: 112 mcg Documented by: Levothyroxine Sodium (Levothyroxine) 25 mcg PO ACBREAKFAST [facility] Last Admin: 06/28/20 07:30 Dose: 25 mcg Documented by: Naloxone HCl (Narcan) 0.1 mg IVPUSH Q5M PRN PRN Reason: RESP RATE LESS THAN 6/MINUTE Naloxone HCl (Narcan) 0.4 mg IV ASDIRECTED PRN PRN Reason: ITCHING/SLEEPINESS Ondansetron HCl (Zofran) 4 mg IV Q4H PRN PRN Reason: Nausea/Vomiting Last Admin: 06/28/20 08:11 Dose: 4 mg Documented by: Pantoprazole Sodium (Protonix Iv) 40 mg IV BEDTIME [facility] Last Admin: 06/27/20 21:02 Dose: 40 mg Documented by: Scopolamine (Transderm-Scop) 1.5 mg TOP Q72H PRN PRN Reason: Nausea Senna (Senna) 17.2 mg PO BID [facility] Last Admin: 06/28/20 08:09 Dose: 17.2 mg Documented by: Discontinued Medications Acetaminophen (Tylenol) 650 mg PO Q4H PRN PRN Reason: Pain (Mild 1-3)/fever Last Admin: 06/26/20 11:17 Dose: 650 mg Documented by: Alvimopan (Entereg) 12 mg PO ONETIME ONE Stop: 06/27/20 11:01 Last Admin: 06/27/20 11:01 Dose: 12 mg Documented by: Bisacodyl (Dulcolax) 10 mg PO ONETIME ONE Stop: 06/25/20 16:08 Last Admin: 06/25/20 18:58 Dose: 10 mg Documented by: Bisacodyl (Dulcolax) 10 mg PO ONETIME ONE Stop: 06/25/20 20:01 Last Admin: 06/25/20 20:35 Dose: 10 mg Documented by: Bisacodyl (Dulcolax) Confirm Administered Dose 10 mg .ROUTE .STK-MED ONE Stop: 06/25/20 20:19 Last Admin: 06/25/20 20:35 Dose: Not Given Documented by: Bisacodyl (Dulcolax) 10 mg PO ONETIME ONE Stop: 06/26/20 10:01 Last Admin: 06/26/20 10:32 Dose: 10 mg Documented by: Bisacodyl (Dulcolax) 10 mg PO ONETIME ONE Stop: 06/26/20 20:01 Last Admin: 06/26/20 20:58 Dose: 10 mg Documented by: Bupivacaine HCl (Marcaine 0.5%) Confirm Administered Dose 50 ml .ROUTE .STK-MED ONE Stop: 06/27/20 11:47 Dexamethasone (Decadron) Confirm Administered Dose 4 mg .ROUTE .STK-MED ONE Stop: 06/27/20 08:56 Fentanyl (Sublimaze) Confirm Administered Dose 100 mcg .ROUTE .STK-MED ONE Stop: 06/26/20 08:17 Fentanyl (Sublimaze) Confirm Administered Dose 100 mcg .ROUTE .STK-MED ONE Stop: 06/27/20 07:12 Fentanyl (Sublimaze) Confirm Administered Dose 100 mcg .ROUTE .STK-MED ONE Stop: 06/27/20 08:46 Fentanyl (Sublimaze) Confirm Administered Dose 100 mcg .ROUTE .STK-MED ONE Stop: 06/27/20 08:55 Fentanyl (Sublimaze) Confirm Administered Dose 100 mcg .ROUTE .STK-MED ONE Stop: 06/27/20 15:26 Glycopyrrolate (Robinul) Confirm Administered Dose 1 mg .ROUTE .STK-MED ONE Stop: 06/27/20 08:56 Potassium Chloride/Sodium Chloride (Normal Saline With 20 Meq Kcl) 1,000 mls @ 500 mls/hr IV ASDIRECTED [facility] Last Admin: 06/25/20 10:43 Dose: 500 mls/hr Documented by: Lactated Ringer's (Ringers, Lactated) 1,000 mls @ 1,000 mls/hr IV BOLUS ONE Stop: 06/25/20 14:19 Last Admin: 06/25/20 13:26 Dose: 1,000 mls/hr Documented by: Sodium Chloride (Normal Saline) 1,000 mls @ 125 mls/hr IV ASDIRECTED [facility] Last Admin: 06/26/20 11:04 Dose: 125 mls/hr Documented by: Magnesium Sulfate (Magnesium Sulfate In Water 2 Gm/50 Ml) 2 gm in 50 mls @ 12.5 mls/hr IV Q6H [facility] Stop: 06/26/20 01:44 Last Admin: 06/25/20 22:23 Dose: 12.5 mls/hr Documented by: Potassium Chloride 40 meq/ (Premix) 100 mls @ 25 mls/hr IV ONETIME ONE Stop: 06/25/20 19:44 Potassium Chloride 20 meq/ (Premix) 100 mls @ 50 mls/hr IV Q2H [facility] Stop: 06/25/20 20:59 Last Admin: 06/25/20 19:59 Dose: 50 mls/hr Documented by: Potassium Acetate 30 meq/ (Sodium Chloride) 265 mls @ 85 mls/hr IV ONETIME ONE Stop: 06/26/20 13:37 Last Admin: 06/26/20 11:04 Dose: 85 mls/hr Documented by: Ferric Sodium Gluconate Complex 250 mg/ Sodium Chloride 120 mls @ 30 mls/hr IV Q24H [facility] Stop: 06/27/20 18:59 Last Admin: 06/26/20 15:28 Dose: 30 mls/hr Documented by: Sodium Chloride (Normal Saline) 78 mls @ 3.5 mls/sec IV ASDIRECTED [facility] Stop: 06/26/20 13:00 Last Admin: 06/26/20 10:57 Dose: 3.5 mls/sec Documented by: Sodium Chloride (Normal Saline) 1,000 mls @ 75 mls/hr IV ASDIRECTED [facility] Last Admin: 06/27/20 04:44 Dose: 75 mls/hr Documented by: Cefoxitin Sodium 2 gm/ Sodium (Chloride) 50 mls @ 100 mls/hr IV ONCALL ONE Stop: 06/27/20 12:29 Last Admin: 06/27/20 17:34 Dose: Not Given Documented by: Potassium Phosphate 15 mmol/ (Premix) 250 mls @ 125 mls/hr IV Q2H [facility] Stop: 06/27/20 12:59 Last Admin: 06/27/20 11:20 Dose: 125 mls/hr Documented by: Dextrose/Lactated Ringer's (Dextrose 5%-Lactated Ringers) 1,000 mls @ 100 mls/hr IV ASDIRECTED [facility] Last Admin: 06/27/20 08:57 Dose: 100 mls/hr Documented by: Ketamine HCl 50 mg/ Sodium (Chloride) 50 mls @ 17.34 mls/hr IV ASDIRECTED [facility] Sodium Chloride (Normal Saline) Confirm Administered Dose 10 mls @ as directed .ROUTE .STK-MED ONE Stop: 06/27/20 08:57 Lactated Ringer's (Ringers, Lactated) Confirm Administered Dose 1,000 mls @ as directed .ROUTE .STK-[facility] ONE Stop: 06/27/20 14:58 Dextrose/Lactated Ringer's (Dextrose 5%-Lactated Ringers) 1,000 mls @ 150 mls/hr IV ASDIRECTED [facility] Last Admin: 06/28/20 02:05 Dose: 150 mls/hr Documented by: Iopamidol (Isovue-300 (61%)) 124 ml IV ONETIME ONE Stop: 06/26/20 10:46 Last Admin: 06/26/20 10:57 Dose: 124 ml Documented by: Ketamine HCl (Ketalar) 29 mg IV ASDIRECTED [facility] Lidocaine HCl (Xylocaine-Mpf 1%) 5 ml INJECT ONETIME ONE Stop: 06/25/20 17:51 Last Admin: 06/25/20 18:03 Dose: 2 ml Documented by: Lidocaine/Epinephrine (Xylocaine 1% With Epinephrine 1:100,000) 50 ml .ROUTE .STK-MED ONE Stop: 06/27/20 11:57 Magnesium Oxide (Magnesium Oxide) 800 mg PO ONETIME ONE Stop: 06/25/20 10:37 Last Admin: 06/25/20 10:43 Dose: 800 mg Documented by: Magnesium Oxide (Magnesium Oxide) 400 mg PO BID [facility] Magnesium Oxide (Magnesium Oxide) 400 mg PO BID [facility] Last Admin: 06/27/20 09:29 Dose: Not Given Documented by: Meropenem (Merrem) Confirm Administered Dose 500 mg .ROUTE .STK-MED ONE Stop: 06/27/20 10:45 Last Admin: 06/27/20 14:26 Dose: 500 mg Documented by: Midazolam HCl (Versed 1 Mg/Ml) Confirm Administered Dose 2 mg .ROUTE .STK-MED ONE Stop: 06/27/20 07:13 Midazolam HCl (Versed 1 Mg/Ml) Confirm Administered Dose 2 mg .ROUTE .STK-MED ONE Stop: 06/27/20 08:46 Neostigmine Methylsulfate (Neostigmine) Confirm Administered Dose 5 mg .ROUTE .STK-MED ONE Stop: 06/27/20 08:56 Ondansetron HCl (Zofran) Confirm Administered Dose 4 mg .ROUTE .STK-MED ONE Stop: 06/27/20 08:56 Pantoprazole Sodium (Protonix Iv) 40 mg IV Q12H [facility] Last Admin: 06/27/20 04:41 Dose: 40 mg Documented by: Polyethylene Glycol (Miralax) 238 gm PO ONETIME ONE Stop: 06/25/20 17:01 Last Admin: 06/25/20 20:00 Dose: 238 gm Documented by: Polyethylene Glycol (Miralax) 238 gm PO ONETIME ONE Stop: 06/26/20 17:01 Last Admin: 06/26/20 16:56 Dose: 64 oz Documented by: Potassium Chloride (Klor-Con M20) 20 meq PO ONETIME ONE Stop: 06/25/20 10:26 Last Admin: 06/25/20 10:40 Dose: 20 meq Documented by: Potassium Chloride (Klor-Con M20) 20 meq PO DAILY [facility] Last Admin: 06/27/20 09:29 Dose: Not Given Documented by: Potassium Chloride (Klor-Con M20) 40 meq PO ONETIME ONE Stop: 06/25/20 16:12 Last Admin: 06/25/20 17:26 Dose: 40 meq Documented by: Propofol (Diprivan 20 Ml) Confirm Administered Dose 200 mg .ROUTE .STK-MED ONE Stop: 06/26/20 08:17 Propofol (Diprivan 20 Ml) Confirm Administered Dose 200 mg .ROUTE .STK-MED ONE Stop: 06/27/20 07:13 Propofol (Diprivan 20 Ml) Confirm Administered Dose 200 mg .ROUTE .STK-MED ONE Stop: 06/27/20 08:46 Propofol (Diprivan 20 Ml) Confirm Administered Dose 200 mg .ROUTE .STK-MED ONE Stop: 06/27/20 08:56 Rocuronium [place] (Zemuron) Confirm Administered Dose 50 mg .ROUTE .STK-MED ONE Stop: 06/27/20 08:56 Rocuronium [place] (Zemuron) Confirm Administered Dose 50 mg .ROUTE .STK-MED ONE Stop: 06/27/20 14:57 Sodium Chloride (Saline Flush) 10 ml FLUSH ASDIRECTED PRN PRN Reason: Keep Vein Open Last Admin: 06/25/20 10:45 Dose: 10 ml Documented by: Sodium Chloride (Saline Flush) 10 ml FLUSH ASDIRECTED PRN PRN Reason: Keep Vein Open - Exam Quality Assessment: No: Supplemental Oxygen General: Alert, Oriented, Cooperative, No Acute Distress Lungs: Normal Respiratory Effort GI/Abdominal Exam: No Distention Extremities: No Pedal Edema Skin: Warm, Dry Psy/Mental Status: Alert, Normal Affect - Patient Data Lab Results Last 24 hrs: Laboratory Results - last 24 hr 06/25/20 06/27/20 06/28/20 Range/Units 15:18 08:55 04:27 WBC 9.0 (4.5-11.0) K/uL RBC 3.39 (3.30-5.50) M/uL Hgb 9.8 L (12.0-15.0) g/dL Hct 31.5 L (36.0-48.0) % MCV 93 (80-98) fL MCH 29 (27-31) pg MCHC 31 L (32-36) % Plt Count 328 (150-400) K/uL Sodium (140-148) mmol/L Potassium (3.6-5.2) mmol/L Chloride (100-108) mmol/L Carbon Dioxide (21-32) mmol/L Anion Gap (5.0-14.0) mmol/L BUN (7-18) mg/dL Creatinine (0.6-1.0) mg/dL Est Cr Clr Drug Dosing mL/min Estimated GFR (MDRD) (>60) Glucose (74-106) mg/dL Calcium (8.5-10.1) mg/dL Phosphorus (2.5-4.9) mg/dL Magnesium (1.8-2.4) mg/dL Total Bilirubin (0.2-1.0) mg/dL AST (15-37) U/L ALT (12-78) U/L Alkaline Phosphatase (46-116) U/L Total Protein (6.4-8.2) g/dL Albumin (3.4-5.0) g/dL Globulin (2.3-3.5) g/dL Albumin/Globulin Ratio (1.2-2.2) Carcinoembryonic Ag 1.6 (0.0-4.7) ng/mL Blood Type O POSITIVE Gel Antibody Screen Negative Crossmatch See Detail 06/28/20 Range/Units 04:27 WBC (4.5-11.0) K/uL RBC (3.30-5.50) M/uL Hgb (12.0-15.0) g/dL Hct (36.0-48.0) % MCV (80-98) fL MCH (27-31) pg MCHC (32-36) % Plt Count (150-400) K/uL Sodium 140 (140-148) mmol/L Potassium 3.8 (3.6-5.2) mmol/L Chloride 105 (100-108) mmol/L Carbon Dioxide 28 (21-32) mmol/L Anion Gap 7.4 (5.0-14.0) mmol/L BUN 3 L (7-18) mg/dL Creatinine 0.5 L (0.6-1.0) mg/dL Est Cr Clr Drug Dosing 96.92 mL/min Estimated GFR (MDRD) > 60 (>60) Glucose 145 H (74-106) mg/dL Calcium 7.6 L (8.5-10.1) mg/dL Phosphorus 2.6 (2.5-4.9) mg/dL Magnesium 1.6 L (1.8-2.4) mg/dL Total Bilirubin 0.2 (0.2-1.0) mg/dL AST 16 (15-37) U/L ALT 20 (12-78) U/L Alkaline Phosphatase 56 (46-116) U/L Total Protein 4.6 L (6.4-8.2) g/dL Albumin 2.2 L (3.4-5.0) g/dL Globulin 2.4 (2.3-3.5) g/dL Albumin/Globulin Ratio 0.9 L (1.2-2.2) Carcinoembryonic Ag (0.0-4.7) ng/mL Blood Type Gel Antibody Screen Crossmatch Result Diagrams: 06/28/20 04:27 06/28/20 04:27 Dylan Results Last 24 hrs: Microbiology 06/26/20 08:48 CLOtest - Final Stomach NEGATIVE CLOTEST REFERENCE RANGE: NEGATIVE Sepsis Event Note - Evaluation Sepsis Screening Result: No Definite Risk - Focused Exam Vital Signs: Vital Signs Temp Temp Temp Pulse Resp BP Pulse Ox 06/28/20 10:00 17 110/66 94 L 06/28/20 08:00 36.7 C 20 102/60 91 L 06/28/20 06:00 36.5 C 71 15 99/60 94 L 06/28/20 04:00 36.7 C 77 14 90/58 L 94 L 06/28/20 02:24 36.7 C 78 15 93/58 L 06/28/20 02:11 36.8 C 82 16 92/57 L 06/28/20 02:00 36.7 C 82 17 98/58 L 95 06/28/20 01:56 36.8 C 82 15 92/59 L 06/28/20 01:41 36.7 C 70 14 92/58 L 06/28/20 01:26 36.7 C 83 15 88/57 L - Problem List Review Problem List Initiated/Reviewed/Updated: Yes - My Orders Last 24 Hours: My Active Orders 06/28/20 10:56 Discontinue Telemetry Monitoring [Cardiac Monitoring Discontinue] [RC] Click to Edit - Plan Plan:: ASSESSMENT AND PLAN Right colon cancer-ascending colon mass noted on colonoscopy and she is now status post right colectomy. Stable postoperatively. This was likely the source of bleeding. Pathology is pending. -postoperative care as per Dr. Buckner GI BLEED secondary to colon malignancy-complicated by anemia due to blood loss. She has received 2 units of blood via transfusion. Hemoglobin stable. -Hold 2 unit of red blood cells SYNCOPE/NEAR SYNCOPE-likely secondary to active bleeding/intravascular volume depletion. Orthostasis has resolved. -Discontinue cardiac monitoring MAINTENANCE ISSUES -DVT prophylaxis; SCUDs, hold on anticoagulation because of active bleed -GI prophylaxis; PPI -Nutrition; full liquids DISPOSITION-anticipate discharge to home after the hospital stay. MD louise Oakley
[2020-06-28 13:14] LABS: H. PYLORI BREATH TEST Negative (Negative)
[2020-06-28] MEDS ORDERED: Acetaminophen 325 MG Tab PO PRN (19:28)
[2020-06-28] MEDS: Pantoprazole 40 MG Vial IV SCH (20:04)
[2020-06-29] MEDS: Magnesium Sulfate/Water 2 GM/50 ML BAG IV SCH ×5 (04:00→21:05)
[2020-06-29] MEDS: Dextrose 5%-Lactated Ringers 1,000 ML with Naloxone 0.4 MG IV SCH ×2 (05:32)
[2020-06-29] MEDS ORDERED: Lidocaine 1% with EPINEPHrine 1:100,000 50 ML MDV ONE (06:39)
[2020-06-29] MEDS ORDERED: Bupivacaine 0.5% 50 ML MDV ONE ×2 (06:39→06:40)
[2020-06-29] MEDS ORDERED: Meropenem 500 MG SDV ONE (06:39)
[2020-06-29] MEDS ORDERED: Midazolam 1 MG/ML 2 ML SDV ONE (07:17)
[2020-06-29] MEDS ORDERED: fentaNYL 100 MCG/2 ML SDV ONE (07:17)
[2020-06-29] MEDS ORDERED: Propofol 200 MG/20 ML SDV ONE (07:17)
[2020-06-29] MEDS ORDERED: Bacitracin Oint 1 GM U/D Packet ONE (07:52)
[2020-06-29] MEDS: fentaNYL 2,500 MCG in Sodium Chloride 0.9% 200 ML EPIDUR SCH (07:53)
[2020-06-29] MEDS ORDERED: Cyanocobalamin (Vitamin B12) 1,000 MCG/ML SDV IM ONE (08:00)
[2020-06-29] MEDS ORDERED: Dextrose 5%-Lactated Ringers 1,000 ML with Naloxone 0.4 MG IV SCH ×4 (09:15→16:00)
--- NOTE | 2020-06-29 10:11 | PCM.PN ---
- General Info Date of Service: 06/29/20 Subjective Update: There were no acute events overnight. Patient had a delayed primary closure today. Pain has been well controlled with the epidural. Vital signs have all been stable. No fevers. Functional Status: Reports: Pain Controlled, Tolerating Diet - Review of Systems General: Denies: Fever - Patient Data Vitals - Most Recent: Last Vital Signs Temp 36.8 C 06/29/20 08:15 Pulse 76 06/29/20 08:15 Resp 14 06/29/20 08:15 BP 143/72 H 06/29/20 08:15 Pulse Ox 86 L 06/29/20 08:35 Orthostatic Blood Pressure [ 89/59 Standing] Orthostatic Blood Pressure [ 100/61 Sitting] Orthostatic Blood Pressure [ 95/51 Supine] Weight - Most Recent: 86.046 kg I&O - Last 24 Hours: Intake & Output 06/28/20 06/29/20 06/29/20 22:59 06:59 14:59 Intake Total 2224 925 Output Total 965 460 Balance 5894 465 Lab Results Last 24 Hours: Laboratory Results - last 24 hr 06/25/20 06/26/20 06/29/20 Range/Units 15:18 10:28 02:33 WBC 6.8 (4.5-11.0) K/uL RBC 3.20 L (3.30-5.50) M/uL Hgb 9.3 L (12.0-15.0) g/dL Hct 29.9 L (36.0-48.0) % MCV 93 (80-98) fL MCH 29 (27-31) pg MCHC 31 L (32-36) % Plt Count 315 (150-400) K/uL Sodium (140-148) mmol/L Potassium (3.6-5.2) mmol/L Chloride (100-108) mmol/L Carbon Dioxide (21-32) mmol/L Anion Gap (5.0-14.0) mmol/L BUN (7-18) mg/dL Creatinine (0.6-1.0) mg/dL Est Cr Clr Drug Dosing mL/min Estimated GFR (MDRD) (>60) Glucose (74-106) mg/dL Calcium (8.5-10.1) mg/dL Phosphorus (2.5-4.9) mg/dL Total Bilirubin (0.2-1.0) mg/dL AST (15-37) U/L ALT (12-78) U/L Alkaline Phosphatase (46-116) U/L NT-Pro-B Natriuret Pep (5-125) pg/mL Total Protein (6.4-8.2) g/dL Albumin (3.4-5.0) g/dL Globulin (2.3-3.5) g/dL Albumin/Globulin Ratio (1.2-2.2) H. pylori Breath Test Negative (Negative) Blood Type Gel Antibody Screen Crossmatch See Detail 06/29/20 06/29/20 Range/Units 02:33 02:33 WBC (4.5-11.0) K/uL RBC (3.30-5.50) M/uL Hgb (12.0-15.0) g/dL Hct (36.0-48.0) % MCV (80-98) fL MCH (27-31) pg MCHC (32-36) % Plt Count (150-400) K/uL Sodium 141 (140-148) mmol/L Potassium 3.6 (3.6-5.2) mmol/L Chloride 105 (100-108) mmol/L Carbon Dioxide 31 (21-32) mmol/L Anion Gap 4.7 L (5.0-14.0) mmol/L BUN 3 L (7-18) mg/dL Creatinine 0.4 L (0.6-1.0) mg/dL Est Cr Clr Drug Dosing 121.15 mL/min Estimated GFR (MDRD) > 60 (>60) Glucose 103 (74-106) mg/dL Calcium 7.8 L (8.5-10.1) mg/dL Phosphorus 2.9 (2.5-4.9) mg/dL Total Bilirubin 0.2 (0.2-1.0) mg/dL AST 13 L (15-37) U/L ALT 18 (12-78) U/L Alkaline Phosphatase 58 (46-116) U/L NT-Pro-B Natriuret Pep 106 (5-125) pg/mL Total Protein 4.5 L (6.4-8.2) g/dL Albumin 2.0 L (3.4-5.0) g/dL Globulin 2.5 (2.3-3.5) g/dL Albumin/Globulin Ratio 0.8 L (1.2-2.2) H. pylori Breath Test (Negative) Blood Type O POSITIVE Gel Antibody Screen Negative Crossmatch See Detail Med Orders - Current: Current Medications Acetaminophen (Tylenol) 650 mg PO Q4H PRN PRN Reason: Headache Last Admin: 06/28/20 20:03 Dose: 650 mg Documented by: Acetaminophen (Tylenol) 650 mg PO Q6H [facility] Alvimopan (Entereg) 12 mg PO BID [facility] Stop: 07/04/20 09:01 Last Admin: 06/28/20 20:04 Dose: 12 mg Documented by: Bacitracin (Bacitracin Oint) 0 gm TOP TID [facility] Bisacodyl (Dulcolax) 10 mg PO BID [facility] Last Admin: 06/28/20 20:03 Dose: 10 mg Documented by: Celecoxib (Celebrex) 200 mg PO BID [facility] Citalopram Hydrobromide (Celexa) 40 mg PO DAILY [facility] Last Admin: 06/28/20 08:08 Dose: 40 mg Documented by: Ropivacaine 43 ml/Dexamethasone 8 mg/Epinephrine HCl 0.4 mg/ Sodium Chloride 34.6 ml 0 ml NERVRT ASDIRECTED [facility] Diphenhydramine HCl (Benadryl) 25 - 50 mg IVPUSH Q6H PRN PRN Reason: ITCHING Hydroxyzine HCl (Vistaril) 75 mg IM Q4H PRN PRN Reason: pain Fentanyl 2,500 mcg/ Sodium (Chloride) 250 mls @ 0 mls/hr EPIDUR TITRATE CLEMENTE; P rotocol Last Admin: 06/29/20 07:53 Dose: 12 mls/hr, 12 mls/hr Documented by: Magnesium Sulfate (Magnesium Sulfate In Water 2 Gm/50 Ml) 2 gm in 50 mls @ 25 mls/hr IV Q6H [facility] Stop: 06/30/20 05:59 Last Admin: 06/29/20 04:00 Dose: 25 mls/hr Documented by: Naloxone HCl 0.4 mg/ Dextrose/ (Lactated Ringer's) 1,001 mls @ 40 mls/hr IV .Q24H [facility] Levothyroxine Sodium (Levothyroxine) 112 mcg PO ACBREAKFAST [facility] Last Admin: 06/28/20 07:31 Dose: 112 mcg Documented by: Levothyroxine Sodium (Levothyroxine) 25 mcg PO ACBREAKFAST [facility] Last Admin: 06/28/20 07:30 Dose: 25 mcg Documented by: Naloxone HCl (Narcan) 0.1 mg IVPUSH Q5M PRN PRN Reason: RESP RATE LESS THAN 6/MINUTE Naloxone HCl (Narcan) 0.4 mg IV ASDIRECTED PRN PRN Reason: ITCHING/SLEEPINESS Last Admin: 06/29/20 04:02 Dose: 0.4 mg Documented by: Ondansetron HCl (Zofran) 4 mg IV Q4H PRN PRN Reason: Nausea/Vomiting Last Admin: 06/28/20 15:14 Dose: 4 mg Documented by: Pantoprazole Sodium (Protonix Iv) 40 mg IV BEDTIME [facility] Last Admin: 06/28/20 20:04 Dose: 40 mg Documented by: Scopolamine (Transderm-Scop) 1.5 mg TOP Q72H PRN PRN Reason: Nausea Senna (Senna) 17.2 mg PO BID [facility] Last Admin: 06/28/20 20:03 Dose: 17.2 mg Documented by: Discontinued Medications Acetaminophen (Tylenol) 650 mg PO Q4H PRN PRN Reason: Pain (Mild 1-3)/fever Last Admin: 06/26/20 11:17 Dose: 650 mg Documented by: Alvimopan (Entereg) 12 mg PO ONETIME ONE Stop: 06/27/20 11:01 Last Admin: 06/27/20 11:01 Dose: 12 mg Documented by: Bacitracin (Bacitracin Oint 1 Gm) Confirm Administered Dose 1 dose .ROUTE .STK-MED ONE Stop: 06/29/20 07:53 Bisacodyl (Dulcolax) 10 mg PO ONETIME ONE Stop: 06/25/20 16:08 Last Admin: 06/25/20 18:58 Dose: 10 mg Documented by: Bisacodyl (Dulcolax) 10 mg PO ONETIME ONE Stop: 06/25/20 20:01 Last Admin: 06/25/20 20:35 Dose: 10 mg Documented by: Bisacodyl (Dulcolax) Confirm Administered Dose 10 mg .ROUTE .STK-MED ONE Stop: 06/25/20 20:19 Last Admin: 06/25/20 20:35 Dose: Not Given Documented by: Bisacodyl (Dulcolax) 10 mg PO ONETIME ONE Stop: 06/26/20 10:01 Last Admin: 06/26/20 10:32 Dose: 10 mg Documented by: Bisacodyl (Dulcolax) 10 mg PO ONETIME ONE Stop: 06/26/20 20:01 Last Admin: 06/26/20 20:58 Dose: 10 mg Documented by: Bupivacaine HCl (Marcaine 0.5%) Confirm Administered Dose 50 ml .ROUTE .STK-MED ONE Stop: 06/27/20 11:47 Bupivacaine HCl (Marcaine 0.5%) Confirm Administered Dose 50 ml .ROUTE .STK-MED ONE Stop: 06/29/20 06:40 Bupivacaine HCl (Marcaine 0.5%) Confirm Administered Dose 50 ml .ROUTE .STK-MED ONE Stop: 06/29/20 06:41 Last Admin: 06/29/20 07:35 Dose: 20 ml Documented by: Cyanocobalamin (Vitamin B12) 1,000 mcg IM ONETIME ONE Stop: 06/29/20 08:01 Dexamethasone (Decadron) Confirm Administered Dose 4 mg .ROUTE .STK-MED ONE Stop: 06/27/20 08:56 Fentanyl (Sublimaze) Confirm Administered Dose 100 mcg .ROUTE .STK-MED ONE Stop: 06/26/20 08:17 Fentanyl (Sublimaze) Confirm Administered Dose 100 mcg .ROUTE .STK-MED ONE Stop: 06/27/20 07:12 Fentanyl (Sublimaze) Confirm Administered Dose 100 mcg .ROUTE .STK-MED ONE Stop: 06/27/20 08:46 Fentanyl (Sublimaze) Confirm Administered Dose 100 mcg .ROUTE .STK-MED ONE Stop: 06/27/20 08:55 Fentanyl (Sublimaze) Confirm Administered Dose 100 mcg .ROUTE .STK-MED ONE Stop: 06/27/20 15:26 Fentanyl (Sublimaze) Confirm Administered Dose 100 mcg .ROUTE .STK-MED ONE Stop: 06/29/20 07:18 Glycopyrrolate (Robinul) Confirm Administered Dose 1 mg .ROUTE .STK-MED ONE Stop: 06/27/20 08:56 Potassium Chloride/Sodium Chloride (Normal Saline With 20 Meq Kcl) 1,000 mls @ 500 mls/hr IV ASDIRECTED [facility] Last Admin: 06/25/20 10:43 Dose: 500 mls/hr Documented by: Lactated Ringer's (Ringers, Lactated) 1,000 mls @ 1,000 mls/hr IV BOLUS ONE Stop: 06/25/20 14:19 Last Admin: 06/25/20 13:26 Dose: 1,000 mls/hr Documented by: Sodium Chloride (Normal Saline) 1,000 mls @ 125 mls/hr IV ASDIRECTED [facility] Last Admin: 06/26/20 11:04 Dose: 125 mls/hr Documented by: Magnesium Sulfate (Magnesium Sulfate In Water 2 Gm/50 Ml) 2 gm in 50 mls @ 12.5 mls/hr IV Q6H [facility] Stop: 06/26/20 01:44 Last Admin: 06/25/20 22:23 Dose: 12.5 mls/hr Documented by: Potassium Chloride 40 meq/ (Premix) 100 mls @ 25 mls/hr IV ONETIME ONE Stop: 06/25/20 19:44 Last Admin: 06/28/20 16:29 Dose: Not Given Documented by: Potassium Chloride 20 meq/ (Premix) 100 mls @ 50 mls/hr IV Q2H [facility] Stop: 06/25/20 20:59 Last Admin: 06/25/20 19:59 Dose: 50 mls/hr Documented by: Potassium Acetate 30 meq/ (Sodium Chloride) 265 mls @ 85 mls/hr IV ONETIME ONE Stop: 06/26/20 13:37 Last Admin: 06/26/20 11:04 Dose: 85 mls/hr Documented by: Ferric Sodium Gluconate Complex 250 mg/ Sodium Chloride 120 mls @ 30 mls/hr IV Q24H [facility] Stop: 06/27/20 18:59 Last Admin: 06/26/20 15:28 Dose: 30 mls/hr Documented by: Sodium Chloride (Normal Saline) 78 mls @ 3.5 mls/sec IV ASDIRECTED [facility] Stop: 06/26/20 13:00 Last Admin: 06/26/20 10:57 Dose: 3.5 mls/sec Documented by: Sodium Chloride (Normal Saline) 1,000 mls @ 75 mls/hr IV ASDIRECTED [facility] Last Admin: 06/27/20 04:44 Dose: 75 mls/hr Documented by: Cefoxitin Sodium 2 gm/ Sodium (Chloride) 50 mls @ 100 mls/hr IV ONCALL ONE Stop: 06/27/20 12:29 Last Admin: 06/27/20 17:34 Dose: Not Given Documented by: Potassium Phosphate 15 mmol/ (Premix) 250 mls @ 125 mls/hr IV Q2H [facility] Stop: 06/27/20 12:59 Last Admin: 06/27/20 11:20 Dose: 125 mls/hr Documented by: Dextrose/Lactated Ringer's (Dextrose 5%-Lactated Ringers) 1,000 mls @ 100 mls/hr IV ASDIRECTED [facility] Last Admin: 06/27/20 08:57 Dose: 100 mls/hr Documented by: Ketamine HCl 50 mg/ Sodium (Chloride) 50 mls @ 17.34 mls/hr IV ASDIRECTED [facility] Sodium Chloride (Normal Saline) Confirm Administered Dose 10 mls @ as directed .ROUTE .[facility] ONE Stop: 06/27/20 08:57 Lactated Ringer's (Ringers, Lactated) Confirm Administered Dose 1,000 mls @ as directed .ROUTE .[facility] ONE Stop: 06/27/20 14:58 Dextrose/Lactated Ringer's (Dextrose 5%-Lactated Ringers) 1,000 mls @ 150 mls/hr IV ASDIRECTED [facility] Last Admin: 06/28/20 02:05 Dose: 150 mls/hr Documented by: Ferric Sodium Gluconate Complex 250 mg/ Sodium Chloride 120 mls @ 30 mls/hr IV Q24H [facility] Stop: 06/28/20 13:59 Last Admin: 06/28/20 09:55 Dose: 30 mls/hr Documented by: Cefoxitin Sodium 2 gm/ Sodium (Chloride) 50 mls @ 100 mls/hr IV Q6H [facility] Stop: 06/28/20 14:29 Last Admin: 06/28/20 14:17 Dose: 100 mls/hr Documented by: Potassium Phosphate 15 mmol/ (Premix) 250 mls @ 85 mls/hr IV Q3H [facility] Stop: 06/28/20 17:57 Last Admin: 06/28/20 14:42 Dose: 85 mls/hr Documented by: Naloxone HCl 0.4 mg/ Dextrose/ (Lactated Ringer's) 1,001 mls @ 100 mls/hr IV .Q10H1M [facility] Last Admin: 06/29/20 05:32 Dose: Not Given Documented by: Naloxone HCl 0.4 mg/ Dextrose/ (Lactated Ringer's) 1,001 mls @ 40 mls/hr IV .Q24H [facility] Iopamidol (Isovue-300 (61%)) 124 ml IV ONETIME ONE Stop: 06/26/20 10:46 Last Admin: 06/26/20 10:57 Dose: 124 ml Documented by: Ketamine HCl (Ketalar) 29 mg IV ASDIRECTED [facility] Lidocaine HCl (Xylocaine-Mpf 1%) 5 ml INJECT ONETIME ONE Stop: 06/25/20 17:51 Last Admin: 06/25/20 18:03 Dose: 2 ml Documented by: Lidocaine/Epinephrine (Xylocaine 1% With Epinephrine 1:100,000) 50 ml .ROUTE .STK-MED ONE Stop: 06/27/20 11:57 Lidocaine/Epinephrine (Xylocaine 1% With Epinephrine 1:100,000) Confirm Administered Dose 50 ml .ROUTE .STK-MED ONE Stop: 06/29/20 06:40 Last Admin: 06/29/20 07:35 Dose: 50 ml Documented by: Magnesium Oxide (Magnesium Oxide) 800 mg PO ONETIME ONE Stop: 06/25/20 10:37 Last Admin: 06/25/20 10:43 Dose: 800 mg Documented by: Magnesium Oxide (Magnesium Oxide) 400 mg PO BID [facility] Last Admin: 06/28/20 16:29 Dose: Not Given Documented by: Magnesium Oxide (Magnesium Oxide) 400 mg PO BID [facility] Last Admin: 06/27/20 09:29 Dose: Not Given Documented by: Meropenem (Merrem) Confirm Administered Dose 500 mg .ROUTE .STK-MED ONE Stop: 06/27/20 10:45 Last Admin: 06/27/20 14:26 Dose: 500 mg Documented by: Meropenem (Merrem) Confirm Administered Dose 500 mg .ROUTE .STK-MED ONE Stop: 06/29/20 06:40 Last Admin: 06/29/20 07:40 Dose: 500 mg Documented by: Midazolam HCl (Versed 1 Mg/Ml) Confirm Administered Dose 2 mg .ROUTE .STK-MED ONE Stop: 06/27/20 07:13 Midazolam HCl (Versed 1 Mg/Ml) Confirm Administered Dose 2 mg .ROUTE .STK-MED ONE Stop: 06/27/20 08:46 Midazolam HCl (Versed 1 Mg/Ml) Confirm Administered Dose 2 mg .ROUTE .STK-MED ONE Stop: 06/29/20 07:18 Neostigmine Methylsulfate (Neostigmine) Confirm Administered Dose 5 mg .ROUTE .STK-MED ONE Stop: 06/27/20 08:56 Ondansetron HCl (Zofran) Confirm Administered Dose 4 mg .ROUTE .STK-MED ONE Stop: 06/27/20 08:56 Pantoprazole Sodium (Protonix Iv) 40 mg IV Q12H [facility] Last Admin: 06/27/20 04:41 Dose: 40 mg Documented by: Polyethylene Glycol (Miralax) 238 gm PO ONETIME ONE Stop: 06/25/20 17:01 Last Admin: 06/25/20 20:00 Dose: 238 gm Documented by: Polyethylene Glycol (Miralax) 238 gm PO ONETIME ONE Stop: 06/26/20 17:01 Last Admin: 06/26/20 16:56 Dose: 64 oz Documented by: Potassium Chloride (Klor-Con M20) 20 meq PO ONETIME ONE Stop: 06/25/20 10:26 Last Admin: 06/25/20 10:40 Dose: 20 meq Documented by: Potassium Chloride (Klor-Con M20) 20 meq PO DAILY [facility] Last Admin: 06/27/20 09:29 Dose: Not Given Documented by: Potassium Chloride (Klor-Con M20) 40 meq PO ONETIME ONE Stop: 06/25/20 16:12 Last Admin: 06/25/20 17:26 Dose: 40 meq Documented by: Propofol (Diprivan 20 Ml) Confirm Administered Dose 200 mg .ROUTE .STK-MED ONE Stop: 06/26/20 08:17 Propofol (Diprivan 20 Ml) Confirm Administered Dose 200 mg .ROUTE .STK-MED ONE Stop: 06/27/20 07:13 Propofol (Diprivan 20 Ml) Confirm Administered Dose 200 mg .ROUTE .STK-MED ONE Stop: 06/27/20 08:46 Propofol (Diprivan 20 Ml) Confirm Administered Dose 200 mg .ROUTE .STK-MED ONE Stop: 06/27/20 08:56 Propofol (Diprivan 20 Ml) Confirm Administered Dose 200 mg .ROUTE .STK-MED ONE Stop: 06/29/20 07:18 Rocuronium Oto (Zemuron) Confirm Administered Dose 50 mg .ROUTE .STK-MED ONE Stop: 06/27/20 08:56 Rocuronium Oto (Zemuron) Confirm Administered Dose 50 mg .ROUTE .STK-MED ONE Stop: 06/27/20 14:57 Sodium Chloride (Saline Flush) 10 ml FLUSH ASDIRECTED PRN PRN Reason: Keep Vein Open Last Admin: 06/25/20 10:45 Dose: 10 ml Documented by: Sodium Chloride (Saline Flush) 10 ml FLUSH ASDIRECTED PRN PRN Reason: Keep Vein Open - Exam Quality Assessment: No: Supplemental Oxygen General: Alert, Oriented, Cooperative, No Acute Distress Lungs: Normal Respiratory Effort GI/Abdominal Exam: No Distention Extremities: No Pedal Edema Psy/Mental Status: Alert, Normal Affect - Patient Data Lab Results Last 24 hrs: Laboratory Results - last 24 hr 06/25/20 06/26/20 06/29/20 Range/Units 15:18 10:28 02:33 WBC 6.8 (4.5-11.0) K/uL RBC 3.20 L (3.30-5.50) M/uL Hgb 9.3 L (12.0-15.0) g/dL Hct 29.9 L (36.0-48.0) % MCV 93 (80-98) fL MCH 29 (27-31) pg MCHC 31 L (32-36) % Plt Count 315 (150-400) K/uL Sodium (140-148) mmol/L Potassium (3.6-5.2) mmol/L Chloride (100-108) mmol/L Carbon Dioxide (21-32) mmol/L Anion Gap (5.0-14.0) mmol/L BUN (7-18) mg/dL Creatinine (0.6-1.0) mg/dL Est Cr Clr Drug Dosing mL/min Estimated GFR (MDRD) (>60) Glucose (74-106) mg/dL Calcium (8.5-10.1) mg/dL Phosphorus (2.5-4.9) mg/dL Total Bilirubin (0.2-1.0) mg/dL AST (15-37) U/L ALT (12-78) U/L Alkaline Phosphatase (46-116) U/L NT-Pro-B Natriuret Pep (5-125) pg/mL Total Protein (6.4-8.2) g/dL Albumin (3.4-5.0) g/dL Globulin (2.3-3.5) g/dL Albumin/Globulin Ratio (1.2-2.2) H. pylori Breath Test Negative (Negative) Blood Type Gel Antibody Screen Crossmatch See Detail 06/29/20 06/29/20 Range/Units 02:33 02:33 WBC (4.5-11.0) K/uL RBC (3.30-5.50) M/uL Hgb (12.0-15.0) g/dL Hct (36.0-48.0) % MCV (80-98) fL MCH (27-31) pg MCHC (32-36) % Plt Count (150-400) K/uL Sodium 141 (140-148) mmol/L Potassium 3.6 (3.6-5.2) mmol/L Chloride 105 (100-108) mmol/L Carbon Dioxide 31 (21-32) mmol/L Anion Gap 4.7 L (5.0-14.0) mmol/L BUN 3 L (7-18) mg/dL Creatinine 0.4 L (0.6-1.0) mg/dL Est Cr Clr Drug Dosing 121.15 mL/min Estimated GFR (MDRD) > 60 (>60) Glucose 103 (74-106) mg/dL Calcium 7.8 L (8.5-10.1) mg/dL Phosphorus 2.9 (2.5-4.9) mg/dL Total Bilirubin 0.2 (0.2-1.0) mg/dL AST 13 L (15-37) U/L ALT 18 (12-78) U/L Alkaline Phosphatase 58 (46-116) U/L NT-Pro-B Natriuret Pep 106 (5-125) pg/mL Total Protein 4.5 L (6.4-8.2) g/dL Albumin 2.0 L (3.4-5.0) g/dL Globulin 2.5 (2.3-3.5) g/dL Albumin/Globulin Ratio 0.8 L (1.2-2.2) H. pylori Breath Test (Negative) Blood Type O POSITIVE Gel Antibody Screen Negative Crossmatch See Detail Result Diagrams: 06/29/20 02:33 06/29/20 02:33 Sepsis Event Note - Evaluation Sepsis Screening Result: No Definite Risk - Focused Exam Vital Signs: Vital Signs Temp Temp Pulse Pulse Resp BP BP 06/29/20 08:35 06/29/20 08:15 36.8 C 76 14 143/72 H 06/29/20 08:10 83 14 130/75 06/29/20 08:05 84 14 128/69 06/29/20 08:00 85 14 121/67 06/29/20 07:55 36.6 C 85 14 127/71 06/29/20 07:13 06/29/20 02:18 36.6 C 70 16 100/47 L 06/29/20 01:18 06/28/20 22:46 36.0 C L 81 16 100/64 Pulse Ox 06/29/20 08:35 86 L 06/29/20 08:15 94 L 06/29/20 08:10 94 L 06/29/20 08:05 95 06/29/20 08:00 96 06/29/20 07:55 96 06/29/20 07:13 97 06/29/20 02:18 97 06/29/20 01:18 97 06/28/20 22:46 96 - Problem List Review Problem List Initiated/Reviewed/Updated: Yes - My Orders Last 24 Hours: My Active Orders 06/28/20 16:50 Willis Catheter Insertion [Insert Urinary Catheter] [OM.PC] Q24H 06/29/20 10:06 PT Evaluation and Treatment [CONS] Routine - Plan Plan:: ASSESSMENT AND PLAN Right colon cancer-ascending colon mass noted on colonoscopy and she is now status post right colectomy. Stable postoperatively. Pathology is pending. -postoperative care as per Dr. Buckner GI BLEED secondary to colon malignancy-complicated by anemia due to blood loss. She has received 2 units of blood via transfusion. Hemoglobin stable. -Hold 2 unit of red blood cells SYNCOPE/NEAR SYNCOPE-likely secondary to active bleeding/intravascular volume depletion. Orthostasis has resolved. -Discontinue cardiac monitoring MAINTENANCE ISSUES -DVT prophylaxis; SCUDs, hold on anticoagulation because of active bleed -GI prophylaxis; PPI -Nutrition; full liquids DISPOSITION-anticipate discharge to home after the hospital stay. Patient appears to be stable from a medical standpoint and main issues at this time are postoperative surgical issues. The hospitalist service will sign off at this time. Please feel free to contact me if you have additional concerns or questions. MD louise Oakley
[2020-06-29] MEDS: Citalopram 20 MG Tab PO SCH (10:17)
[2020-06-29] MEDS: Bisacodyl 5 MG Tab PO SCH ×2 (10:17→21:04)
[2020-06-29] MEDS: Sennosides 8.6 MG Tab PO SCH ×2 (10:18→21:04)
[2020-06-29] MEDS: Acetaminophen 325 MG Tab PO SCH ×3 (10:18→21:05)
[2020-06-29] MEDS: Bacitracin Oint 28.35 GM Tube TOP SCH ×3 (10:18→21:15)
[2020-06-29] MEDS: Levothyroxine 25 MCG Tab PO SCH (10:19)
[2020-06-29] MEDS: Levothyroxine 112 MCG Tab PO SCH (10:20)
[2020-06-29] MEDS: Celecoxib 200 MG Cap PO SCH ×2 (10:20→21:04)
--- NOTE | 2020-06-29 10:38 | PN ---
DATE OF SERVICE: 06/29/2020 SUBJECTIVE: Sofía is going down to the OR for delayed primary closure. She continues to have the epidural and states pain is controlled. Hemoglobin was 9.3. Oral intake 750 and oral output is 2020 mL. She has no concerns or questions today. OBJECTIVE: GENERAL: Sofía Marino is a pleasant 69-year-old female, very pale. VITAL SIGNS: TPR is 98, 70, 16, blood pressure 100/47. HEENT: Negative. NECK: Supple. HEART: Regular rate and rhythm. LUNGS: Clear. ABDOMEN: Dressings dry and intact. Abdominal binder is on. EXTREMITIES: Without peripheral edema. ASSESSMENT: 1. Exploratory laparotomy. a. Right colectomy. b. Repair of incarcerated incisional hernia. c. Excision of penetrated nodule through the surface and penetrated colon for right colon mass. Date of procedure: 06/27/2020. Surgeon: Paulo Buckner MD. 2. Upper GI with biopsy of gastric pouch 06/26/2020. Surgeon: Paulo Buckner MD. PLAN: Orders to be written after delayed primary closure. Tiffany Alegre PA-C /[id number]
[2020-06-29] MEDS: Pantoprazole 40 MG Vial IV SCH (21:04)
[2020-06-30] MEDS: fentaNYL 2,500 MCG in Sodium Chloride 0.9% 200 ML EPIDUR SCH (01:10)
[2020-06-30] MEDS: Magnesium Sulfate/Water 2 GM/50 ML BAG IV SCH (04:07)
[2020-06-30] MEDS: Acetaminophen 325 MG Tab PO SCH ×4 (04:07→21:10)
[2020-06-30] MEDS ORDERED: HYDROmorphone 2 MG Tab PO PRN (07:28)
[2020-06-30] MEDS: Levothyroxine 112 MCG Tab PO SCH (07:29)
[2020-06-30] MEDS: Levothyroxine 25 MCG Tab PO SCH (07:29)
[2020-06-30] MEDS: Bisacodyl 5 MG Tab PO SCH ×2 (08:43→21:09)
[2020-06-30] MEDS: Celecoxib 200 MG Cap PO SCH ×2 (08:43→21:09)
[2020-06-30] MEDS: Citalopram 20 MG Tab PO SCH (08:43)
[2020-06-30] MEDS: Sennosides 8.6 MG Tab PO SCH ×2 (08:44→21:09)
--- NOTE | 2020-06-30 10:04 | PN ---
DATE OF SERVICE: 06/30/2020 SUBJECTIVE: Sofía had delayed primary closure yesterday. Her pain has been controlled. She continues to have epidural. She is reporting extreme itching from adhesive tape. She has no other concerns or questions. Vital signs have been stable. Oral intake 2410. Urine output 3050 via Willis catheter. REVIEW OF SYSTEMS: Remainder of review of systems negative. OBJECTIVE: GENERAL: Sofía Marino is a pleasant 69-year-old female. She is alert, orientated, and sitting on the bed. VITAL SIGNS: TPR is 98.4, 71, and 16. Blood pressure 121/67. HEENT: Negative. NECK: Supple. HEART: Regular rate and rhythm. LUNGS: Clear. ABDOMEN: Dressings dry and intact. Abdominal binder is on. EXTREMITIES: Without peripheral edema. BACK: Epidural is intact. ASSESSMENT: 1. Exploratory laparotomy with: a. Right colectomy. b. Repair of incarcerated incisional hernia. c. Excision of penetrated nodule through the surface and penetrated colon for right colon mass. d. Date of procedure 06/27/2020. Surgeon: Paulo Buckner MD. 2. Upper GI with biopsy of gastric pouch on 06/26/2020. Surgeon: Paulo Buckner MD. 3. Delayed primary closure on 06/29/2020. PLAN: 1. Discontinue epidural. 2. Discontinue Willis catheter. 3. Saline lock IV. 4. Dilaudid 2 mg every 4 hours orally p.r.n. pain. 5. Remove all adhesive bandages. 6. May shower. 7. Check CBC, CMP, mag, and phos in a.m. 8. We will evaluate p.r.n. or in a.m. Tiffany Alegre PA-C /[id number]
[2020-06-30] MEDS: Bacitracin Oint 28.35 GM Tube TOP SCH ×3 (13:46→21:08)
[2020-06-30] MEDS: Ondansetron 4 MG/2 ML SDV IV PRN (13:50)
[2020-06-30] MEDS: Pantoprazole 40 MG Vial IV SCH (21:09)
[2020-07-01] MEDS: Acetaminophen 325 MG Tab PO SCH ×4 (04:43→23:52)
[2020-07-01] MEDS: Levothyroxine 112 MCG Tab PO SCH (07:54)
[2020-07-01] MEDS: Levothyroxine 25 MCG Tab PO SCH (07:54)
[2020-07-01] MEDS ORDERED: Cyanocobalamin (Vitamin B12) 1,000 MCG/ML SDV IM ONE (10:00)
[2020-07-01] MEDS: Bacitracin Oint 28.35 GM Tube TOP SCH ×3 (10:00→20:36)
[2020-07-01] MEDS: Celecoxib 200 MG Cap PO SCH ×2 (10:01→20:36)
[2020-07-01] MEDS: Citalopram 20 MG Tab PO SCH (10:01)
[2020-07-01] MEDS: Potassium Phos in 0.9 % NaCl 15 MMOL in Premix Bag 1 BAG IV SCH ×8 (10:27→20:35)
[2020-07-01] MEDS: Chlorthalidone 25 MG Tab PO SCH (11:08)
[2020-07-01] MEDS: Bisacodyl 5 MG Tab PO SCH (11:14)
[2020-07-01] MEDS: Sennosides 8.6 MG Tab PO SCH (11:15)
[2020-07-01] MEDS: Pantoprazole 40 MG Vial IV SCH (20:36)
[2020-07-02] MEDS: Acetaminophen 325 MG Tab PO SCH ×2 (05:38→09:16)
[2020-07-02] MEDS ORDERED: ALENDRONATE 70 MG PO ONE (07:30)
[2020-07-02] MEDS: Levothyroxine 112 MCG Tab PO SCH (07:46)
[2020-07-02] MEDS: Levothyroxine 25 MCG Tab PO SCH (07:46)
[2020-07-02] MEDS: Citalopram 20 MG Tab PO SCH (09:14)
[2020-07-02] MEDS: Celecoxib 200 MG Cap PO SCH (09:14)
[2020-07-02] MEDS: Chlorthalidone 25 MG Tab PO SCH (09:15)
[2020-07-02] MEDS: Bacitracin Oint 28.35 GM Tube TOP SCH (09:16)
--- NOTE | 2020-07-02 09:32 | DISCH ---
FINAL DIAGNOSES: 1. 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 2. Incarcerated incisional hernia. 3. Peritoneal nodule on the surface of transverse colon. 4. Iron-deficiency state requiring IV iron supplementation. SECONDARY DIAGNOSES: 1. Acute blood loss anemia requiring transfusion. 2. Bariatric surgery status. 3. History of cholelithiasis status post cholecystectomy. 4. History of arthritis and osteoarthritis involving the knees. 5. History of depression. 6. Treated hypothyroidism. OPERATIVE PROCEDURE: 1. On 06/26/2020, upper gastrointestinal endoscopy with biopsies of gastric pouch for CLOtest. 2. Flexible colonoscopy will be on 06/27/2020. 3. Exploratory laparotomy with: a. Right colectomy. b. Repair of incarcerated incisional hernia. c. Excision of peritoneal nodule on the surface of left-sided transverse colon. 4. On 06/29/2020, delayed primary closure of abdominal incision. SUMMARY: This is a 69-year-old presenting with syncope and near syncopal episodes, was noted to have some active GI bleeding with maroon-type stools, hemoglobin dropped to as low as around 7.7, and she did require several transfusions. Initially, she was scheduled for an upper and lower endoscopy on 06/26/2020. At that time, the colonoscopy prep was not satisfactorily completed. The upper endoscopy was otherwise normal. A biopsy was obtained for CLOtest which was negative. 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 Of note, a CT scan done on 06/26/2020 showed some thickening of the ascending colon suggestive of colitis or tumor without any evidence of metastatic disease in the liver or elsewhere. Later in the day on 06/26/2020, the patient underwent exploratory laparotomy and right colectomy along with repair of the incisional hernia, excision of the peritoneal nodule, and delayed primary closure was undertaken on 06/29/2020. Clinically, she is doing well at this point. Final pathology was as outlined per the diagnostic list above. At this point, she is tolerating Tylenol and Celebrex for pain and feels the Celebrex has been quite helpful with regard to arthritic pain as well and will be likely continuing that. The patient had a ferritin level of 60 and did receive 2 doses of gluconate during the hospitalization as well. At this point, she will be discharged home on a step-4 diet and continue the present medications as at home plus Tylenol 650 q.4 hours p.r.n. pain and Celebrex 200 mg p.o. b.i.d. Followup will be with Dr. Buckner at [facility] on 07/05/2020 at which time would probably need to get the bianka out and we will set up a Medical Oncology consult for the following week as well. /[id number]
--- NOTE | 2020-07-02 10:10 | OR ---
DATE OF PROCEDURE: 06/27/2020 SURGEON: Paulo Buckner MD PREOPERATIVE DIAGNOSIS: Carcinoma of ascending colon. POSTOPERATIVE DIAGNOSES: 1. Carcinoma of ascending colon. 2. Peritoneal nodule on the surface of left side of transverse colon. 3. Incarcerated incisional hernia. 4. Area of distal small bowel insufficiently mobile to allow ileocolic anastomosis. OPERATIVE PROCEDURES: Exploratory laparotomy with: 1. Right colectomy (25159). 2. Separate small bowel resection (46372). 3. Repair of incarcerated incisional hernia (99636). 4. Excision of peritoneal nodule on surface of left side of transverse colon (23365). ANESTHESIA: General plus epidural. SHAKER REPAIRER: Tiffany Alegre PA-C; and SHARON Velasco. INDICATIONS FOR PROCEDURE: Earlier today, the patient was noted to have a carcinoma involving the ascending colon. The patient was initially admitted over the weekend with hemoglobin of 6.5 with some syncopal and near-syncopal episodes. Upper endoscopy yesterday showed no evidence of pathology. CT scan showed some thickening in the area of the ascending colon. Earlier today, the patient underwent a colonoscopy which confirmed an obvious carcinoma involving the ascending colon. Plan is to proceed with a right colectomy at this time with a general plus epidural anesthetic. Potential risks including bleeding and perforation of the anastomosis, possible local or distant tumor recurrence, as well as possibility of cardiopulmonary, septic, or hemorrhagic complications leading to were discussed, and the patient wishes to proceed. DETAILS OF PROCEDURE: The patient was taken to the operating room after epidural catheter was placed. General endotracheal anesthesia was induced. The epidural infusion initiated. Willis catheter was inserted, and the abdomen prepped and draped. Upper midline incision was then made and carried down through the skin, subcutaneous tissue, and through the fascia and the peritoneal cavity. Some scattered adhesions related to the patient's previous gastric bypass and cholecystectomy were encountered. These were taken down. The mass in the ascending colon was at this point easily palpable. It appeared to probably be full thickness, but otherwise occluded by adherent omentum. There was no evidence of peritoneal carcinomatosis. The location of the tumor would be such that the primary draining site would be the ileocolic vessels and to a lesser extent the right colic vessels. Nose of these had significantly enlarged or hard lymph nodes within them. At this point, the distal small bowel was divided with a JOSE stapler as was the transverse colon somewhat to the right of the midline. It was noted that the patient had a 3 mm nodular lesion on the anterior aspect of the transverse colon, more on the left side, which would be little bit away from the subsequent anastomosis. This was excised and sent for histologic evaluation. The peritoneal reflection of the distal small bowel, cecum, ascending colon, and hepatic flexure were then freed up and the mobilized medially with care taken to avoid injury to the right ureter and duodenum. The mesentery between the points of division was then divided with JOSE bianka and the specimen was delivered from the field. The specimen was inspected, this was more of a napkin ring type tumor that was on the right side of the colon with roughly 2/3rd of the circumference of the bowel at the level of the tumor being encircled by the obviously malignant lesion. The small bowel was then mobilized upward. It was noted to be somewhat immobile in its distal aspect which would make some tension at the ileocolic anastomosis. Given this, some additional small bowel was resected with the JOSE stapler with the mesentery being divided as well, mobilization of the remaining distal small bowel up to the transverse colon without tension. A [id number] ileocolic anastomosis accomplished with 2 internal firings of the Endo-JOSE 60 mm stapler. Common openings were closed transversely with JOSE bianka as well. Angles anastomosed and reinforced with some 3-0 Vicryl stitch. Fibrin sealant and the mesenteric defect closed with 3-0 Vicryl stitch as well. At this point, the liver had already been inspected and found to have no palpable abnormalities. Again, there was no paraaortic or other lymphadenopathy located in the retroperitoneum or remainder of the mesentery. The abdomen was irrigated with meropenem-containing saline solution. A Stevie-Valle drain was taken out through a stab wound on the right lateral abdomen and draped across the area of the anastomosis and from there down along the right colic gutter area. During the course of the initial entrance to the abdomen, the patient was noted to have incarcerated incisional hernia, likely related to previous trocar site used for the gastric bypass and gallbladder removal and contained some preperitoneal fat along with omentum. This was excised. The midline fascia was approximated which included repair of the incisional hernia, and the skin and subcutaneous tissue were then left open for a planned delayed primary closure in 48 hours to limit the chances of incisional infection which would be at high risk if the primary closure was undertaken today. The patient was taken to the recovery room in satisfactory condition. There were no evident complications. Physician res habilitation assistant, Tiffany Alegre, played an essential role in assisting in this case helping to position the patient, retract structures as needed, as well as suturing and cutting sutures when indicated. Her presence improved patient safety and decreased operative time. Paulo Buckner MD /[id number]
--- NOTE | 2020-07-02 11:52 | OR ---
DATE OF PROCEDURE: 06/26/2020 SURGEON: Paulo Buckner MD PREOPERATIVE DIAGNOSIS: Gastrointestinal bleeding. POSTOPERATIVE DIAGNOSIS: Gastrointestinal bleeding with grossly normal upper gastrointestinal endoscopic examination, status post Pete-en-Y gastric bypass. OPERATIVE PROCEDURE: Upper GI endoscopy with biopsy of gastric pouch for CLOtest. ANESTHESIA: IV sedation. INDICATIONS FOR PROCEDURE: The patient presented syncopal episodes along with history of rectal bleeding and hemoglobin as low as 7.7. Plan is to proceed with upper GI endoscopy. We originally planned to do a colonoscopy today as well, but at this point, the prep is still grossly inadequate, so we will proceed with upper GI endoscopy initially today. Potential risks of the procedure including bleeding and perforation were discussed, and the patient wishes to proceed. DETAILS OF PROCEDURE: The patient was taken to the operating room, placed in a left lateral decubitus position. IV sedation was administered, after which the upper GI endoscope was passed orally through the length of the esophagus, then into the gastric pouch, from there through the gastrojejunostomy roughly 20 cm into the Pete limb. Overall, this examination was entirely normal. There are no areas of inflammation, stricturing, blood, or bleeding. Scope was then brought back up into the gastric pouch where biopsies were obtained for CLOtest for H pylori. Minimal bleeding from the biopsy site was seen and the procedure was then concluded. The patient was taken to the recovery room in satisfactory condition. Paulo Buckner MD /[id number]
--- NOTE | 2020-07-02 12:10 | OR ---
DATE OF PROCEDURE: 06/27/2020 SURGEON: Paulo Buckner MD PREOPERATIVE DIAGNOSIS: Recent gastrointestinal bleeding with CT scan showing suspicious area of thickening in ascending colon. POSTOPERATIVE DIAGNOSES: 1. Carcinoma of ascending colon. 2. Uncomplicated left colonic diverticulosis. OPERATIVE PROCEDURE: Flexible colonoscopy. ANESTHESIA: IV sedation. INDICATIONS FOR PROCEDURE: The patient presented over the weekend with rectal bleeding, hemoglobin down in the 6 range. An upper GI endoscopy yesterday was unremarkable and the patient had at that point an incomplete colonoscopy prep, and after this has been finished, she would undergo a colonoscopy today. In the interim, she did have a CT scan which showed some thickening of the ascending colon suggestive of either colitis or neoplasm at that level. The plan was to proceed with a colonoscopy with biopsies and/or polypectomy. Potential risks including bleeding and perforation were discussed and the patient wishes to proceed. DETAILS OF PROCEDURE: The patient was taken to the operating room, placed in the left lateral decubitus position. IV sedation was administered after which the initial digital rectal exam was performed and was unremarkable. The colonoscope was then passed to the level of the rectum with retroflexion revealing uncomplicated hemorrhoidal columns. The scope was then progressively advanced proximally. The prep at this point was very good. The patient had some uncomplicated left colonic diverticulosis. As one approached the area of the ascending colon, the patient had an obvious carcinoma involving that area. This contained some ulceration. No active bleeding was seen, but the areas of ulceration were covered with fibrinous exudate. This was more or less a "napkin ring" type tumor with more than half of the wall being encircled by a crescent of what is obviously a malignancy. Biopsies were not obtained as this would not affect the decision making and the scope was then withdrawn, and the procedure then concluded. The patient was taken to the recovery room in satisfactory condition. Paulo Buckner MD /[id number]
--- NOTE | 2020-07-02 12:37 | PN ---
DATE OF SERVICE: 06/28/2020 The patient has been afebrile with stable vital signs, kind of a little bit low on the blood pressure, will be adjusted per Anesthesia today. She is going to receive 1 unit of packed RBCs during the night. The hemoglobin is 9.8 and the urine output has been satisfactory. Labs otherwise showed somewhat low potassium, phosphate, and magnesium. These will be supplemented today. Otherwise, we will start the full liquid diet with protein supplements and add some bowel stimulation. We will plan to have delayed primary closure tomorrow. If the epidurals continue to work as well, there may be that in an extra day moving it on Friday rather than tomorrow. Paulo Buckner MD /[id number]
--- NOTE | 2020-07-02 13:01 | PN ---
CORRECTED REPORT DATE OF SERVICE: 07/01/2020 The patient has been afebrile with stable vital signs. She has moved her bowels. Still having a little bit mobility issues. Hemoglobin is stable at 9.4. Paulo Buckner MD /[id number] MTDD
--- NOTE | 2020-07-02 13:16 | PN ---
DATE OF SERVICE: 06/26/2020 The patient was admitted over the weekend with a GI bleed picture with a significant drop in her hemoglobin. She has been receiving some transfusions. Hemoglobin this morning is up at 8.2. She had an upper endoscopy, which showed no abnormalities within the upper GI endoscopic examination followed by Pete-en-Y gastric bypass. This leaves the likely bleeding source as being the proximal colon versus the bypassed portion of the duodenum or stomach or small bowel sites. The plan will be to finish off the colonoscopy prep, which was inadequate this morning. We will also obtain a CT scan of the abdomen and pelvis to try and determine if there are some visible areas of inflammation in the bypassed portion of stomach or duodenum or other pathology such as small bowel or large bowel masses. At this point, we will give her 1 unit of packed RBCs as well. Potassium is somewhat low. We will give her some potassium acetate. Ferritin was quite low at 60. We will give ferric gluconate 250 mg today and tomorrow, and obtain an H pylori breath test to augment the CLOtest obtained at the time of the upper endoscopy today and then proceed with a colonoscopy tomorrow. Paulo Buckner MD /[id number]
--- NOTE | 2020-07-02 13:31 | PN ---
DATE OF SERVICE: 06/27/2020 The patient underwent a colonoscopy earlier today, which showed a carcinoma involving the ascending colon. This would be consistent with the patient's GI bleeding source. After discussion with the patient, the patient's daughter, the sprinkler repair technician in the operating room, and the family members, plan will be to proceed with exploratory laparotomy and right colectomy. A general epidural anesthetic will be used, and an enhanced recovery protocol initiated. Potential risks of the procedure including bleeding, infection, leaks from various GI tract closures, possible local or distant tumor recurrence, as well as possibility of cardiopulmonary, septic, or hemorrhagic complications leading to were discussed, and the patient wishes to proceed. The surgery will be undertaken later on today. Paulo Buckner MD /[id number]
--- NOTE | 2020-07-03 13:16 | OR ---
DATE OF PROCEDURE: 06/29/2020 SURGEON: Paulo Buckner MD PREOPERATIVE DIAGNOSIS: Open abdominal incision. POSTOPERATIVE DIAGNOSIS: Open abdominal incision. OPERATIVE PROCEDURE: Delayed primary closure of open abdominal incision. ANESTHESIA: Local plus IV sedation. RADIO EQUIPMENT REPAIRER: PATRICIO Velasco student. INDICATIONS FOR PROCEDURE: A 69-year-old 48 hours status post a right colon resection, at which time the skin and subcutaneous tissue were felt to be high risk for wound infection if primary closure was undertaken. Wound was therefore packed open for a planned delayed primary closure at this time. Potential risks including bleeding and infection were reviewed, and the patient wishes to proceed. DETAILS OF PROCEDURE: The patient was taken to the operating room and placed in a supine position. After IV sedation was administered, the abdominal dressing was taken down, the wound was inspected and found to be clean. The incision was then prepped and draped and anesthetized with 1% lidocaine and mixed with Marcaine and irrigated with meropenem- containing saline solution. Incision was then closed with 2 layers of 3-0 and 4-0 Vicryl stitch deep and bianka for the skin. Bilateral transversus abdominis plane blocks were placed and the patient was taken to the recovery room in satisfactory condition. Paulo Buckner MD /[id number]
== END 2020-07-02 12:19 | disposition home or self-care (01) | DRG 330 ==
LOC: JP.ED 08:44 → JP.ICU 14:59 → JP.MS 06-28 14:25
PROVIDERS: ADMIT Hospitalist; ATTEND Internal Medicine
PROC: 0DB68ZX Excision of Stomach, Via Natural or Artificial Opening Endoscopic, Diagnostic (ICD-10-PCS; 2020-06-26)
PROC: 30233N1 Transfusion of Nonautologous Red Blood Cells into Peripheral Vein, Percutaneous Approach (ICD-10-PCS; 2020-06-26)
PROC: 0DTF0ZZ Resection of Right Large Intestine, Open Approach (ICD-10-PCS; principal; 2020-06-27)
PROC: 0WQF0ZZ Repair Abdominal Wall, Open Approach (ICD-10-PCS; 2020-06-27)
PROC: 0DB80ZZ Excision of Small Intestine, Open Approach (ICD-10-PCS; 2020-06-27)
PROC: 0DBL0ZZ Excision of Transverse Colon, Open Approach (ICD-10-PCS; 2020-06-27)
PROC: 0DJD8ZZ Inspection of Lower Intestinal Tract, Via Natural or Artificial Opening Endoscopic (ICD-10-PCS; 2020-06-27)
PROC: 0JQ80ZZ Repair Abdomen Subcutaneous Tissue and Fascia, Open Approach (ICD-10-PCS; 2020-06-29)
DX: I95.1 Orthostatic hypotension (principal); E87.6 Hypokalemia; E86.0 Dehydration; C18.2 Malignant neoplasm of ascending colon; K92.2 Gastrointestinal hemorrhage, unspecified; C77.9 Secondary and unspecified malignant neoplasm of lymph node, unspecified; M19.90 Unspecified osteoarthritis, unspecified site; K43.0 Incisional hernia with obstruction, without gangrene; D62 Acute posthemorrhagic anemia; M17.0 Bilateral primary osteoarthritis of knee; E53.8 Deficiency of other specified B group vitamins; Z91.048 Other nonmedicinal substance allergy status; F32.9 Major depressive disorder, single episode, unspecified; E03.9 Hypothyroidism, unspecified; K57.30 Diverticulosis of large intestine without perforation or abscess without bleeding; H54.7 Unspecified visual loss; E66.9 Obesity, unspecified; E55.9 Vitamin D deficiency, unspecified; D50.9 Iron deficiency anemia, unspecified; Z98.49 Cataract extraction status, unspecified eye; Z98.84 Bariatric surgery status; Z90.49 Acquired absence of other specified parts of digestive tract; Z79.82 Long term (current) use of aspirin; Z79.890 Hormone replacement therapy; Z79.899 Other long term (current) drug therapy; Z87.442 Personal history of urinary calculi; Z87.440 Personal history of urinary (tract) infections; Z90.710 Acquired absence of both cervix and uterus; Z98.890 Other specified postprocedural states; Z68.36 Body mass index [BMI] 36.0-36.9, adult; Z20.822 Contact with and (suspected) exposure to COVID-19
CPT/HCPCS: 0241U; 36415; 36430; 51701; 74177; 80048; 80053; 81001; 82272; 82378; 82607; 82728; 82746; 83013; 83735; 83880; 84100; 84132; 84443; 84484; 85014; 85018; 85025; 85027; 86850; 86900; 86901; 86920; 86922; 87081; 88341; 94762; 96365; 96366; 97110; 97162; 97535; 99285; 88302; 88305; 88307; 88309; 88342; 99222; 99232; A9270-GY; C9113; J0171; J0694; J1100; J1200; J2185; J2250; J2310; J2405; J2704; J2710; J2795; J2916; J3010; J3420; J3475; J3480; J3490; J7030; J7050; J7120; J7121; P9016; Q9967

== ENCOUNTER 2020-07-25 06:47 | Day surgery (SDC) | payer MEDICARE, BC ==
[~2020-07-25 06:47] MED LIST changes: +Bupivacaine 0.5% 50 ML MDV ONE; +Lidocaine 1% with EPINEPHrine 1:100,000 50 ML MDV ONE; -Sodium Chloride 0.9% 10 ML Syringe FLUSH PRN
[2020-07-25] MEDS ORDERED: Propofol 200 MG/20 ML SDV ONE (07:06)
[2020-07-25] MEDS ORDERED: fentaNYL 100 MCG/2 ML SDV ONE (07:06)
[2020-07-25] MEDS ORDERED: Midazolam 1 MG/ML 2 ML SDV ONE (07:06)
[2020-07-25] MEDS ORDERED: Dextrose 5%-Lactated Ringers 1,000 ML IV SCH (07:09)
[2020-07-25] MEDS ORDERED: Acetaminophen 500 MG Tab PO ONE (07:30)
[2020-07-25] MEDS ORDERED: Cyanocobalamin (Vitamin B12) 1,000 MCG/ML SDV IM ONE (07:50)
[2020-07-25] MEDS ORDERED: ceFAZolin 2 GM in Premix Bag 1 BAG IV ONE (08:00)
--- NOTE | 2020-07-26 15:56 | OR ---
DATE OF PROCEDURE: 07/25/2020 SURGEON: Paulo Buckner MD PREOPERATIVE DIAGNOSIS: Indication for central venous access. POSTOPERATIVE DIAGNOSIS: Indication for central venous access. OPERATIVE PROCEDURE: Placement of Bard PowerPort via left subclavian vein approach (81247). ANESTHESIA: Local plus IV sedation. INDICATION FOR PROCEDURE: This is a recently diagnosed with colon carcinoma with one positive lymph node. She is to be undergoing chemotherapy. To facilitate chemotherapy, a central venous access was requested per Medical Oncology. Potential risks of the procedure including bleeding, infection, injury to the lung and/or vasculature, the port becoming infected or occluded were all reviewed, and the patient wishes to proceed. DETAILS OF PROCEDURE: The patient was taken to the operating room and placed in a supine position after IV sedation was administered, after which the upper chest and neck areas were prepped and draped. The left subclavian area was anesthetized with 1% lidocaine mixed with Marcaine and left subclavian vein cannulated and guidewire manipulated from there into the subclavian vein and then into the superior vena cava. Some additional local was injected and transverse infraclavicular incision was made, carried down through the skin and subcutaneous tissue to the pectoralis fascia. A pocket was then constructed with blunt dissection behind the pectoralis major fascia. The Bard port was at that point assembled flushed with heparinized saline and placed in the pocket, the catheter cut such that the tip would lie in the area of the superior vena cava and right atrial junction. Over the wire, an introducer and peel-away catheter were placed and the catheter was then placed without difficulty. Good in and outflow noted in the port and it was flushed with heparinized saline. The port was again irrigated with antibiotic-containing saline solution and the incision closed with two layers of 3-0 Vicryl stitch deep and a 4-0 Vicryl subcuticular stitch. Dressing was applied. The patient was taken to the recovery room in satisfactory condition. There were no evident complications. Paulo Buckner MD /[id number]
== END 2020-07-25 10:06 | disposition home or self-care (01) ==
LOC: JP.SDS 06:47
PROVIDERS: ATTEND Surgery
DX: C18.9 Malignant neoplasm of colon, unspecified (principal); C77.9 Secondary and unspecified malignant neoplasm of lymph node, unspecified
CPT/HCPCS: A9270-GY; C1788; J0690; J1642; J2020; J2250; J2704; J3010; J3420; J3490; J7121

== ENCOUNTER 2020-11-08 13:55 | Observation (INO) | payer MEDICARE, BC ==
--- NOTE | 2020-11-08 14:30 | EDM.PDOC ---
ED HPI GENERAL MEDICAL PROBLEM - General Chief Complaint: Lower Extremity Injury/Pain Stated Complaint: LEFT LEG SWOLLEN Time Seen by Provider: 11/08/20 14:00 Source of Information: Reports: Patient, Provider History Limitations: Reports: No Limitations - History of Present Illness INITIAL COMMENTS - FREE TEXT/NARRATIVE: 70-year-old female who just finished chemotherapy was in for routine oncology appointment for follow-up when she expressed concern about inflammation of her left leg. She has chronic lymphedema, even before her diagnosis of cancer but her left leg is more swollen, tender, and red than usual. After an evaluation in the clinic she was sent over to the emergency room for further evaluation including an ultrasound of the leg, probably at least 1 dose of IV antibiotics and then consideration for admission. The patient has no fever chills, shortness of breath, she really has no other complaints other than the localized symptoms of the left leg. She did have a CBC done at the clinic her white count is normal. No recent injury to the leg. Onset: Gradual Duration: Day(s): (Symptoms have been worsening over the past few days) Location: Reports: Lower Extremity, Left Associated Symptoms: Denies: Fever/Chills, Loss of Appetite, Malaise (According the patient she really does not feel ill) - Related Data Allergies Allergy/AdvReac Type Severity Reaction Status Date / Time adhesive Allergy Hives Verified 11/08/20 14:17 Aquacel Allergy Hives Uncoded 11/08/20 14:17 Home Meds: Home Meds Aspirin 325 mg PO DAILY 05/07/13 [History] Calcium Citrate/Vitamin D3 [Calcium Citrate + Caplet] 1,900 mg PO BID 05/07/13 [History] Cholecalciferol (Vitamin D3) [Vitamin D] 5,000 unit PO DAILY 05/07/13 [History] Citalopram [Citalopram Hbr] 40 mg PO DAILY 05/07/13 [History] Cyanocobalamin (Vitamin B-12) [Cyanocobalamin Injection] 1,000 mcg IM Q14D 05/07/13 [History] Cyanocobalamin (Vitamin B-12) [Vitamin B-12] 2,500 mcg SL DAILY 05/07/13 [History] Levothyroxine [Synthroid] 137 mcg PO DAILY 05/07/13 [History] Multivitamin [Multivitamins] 1 each PO DAILY 05/07/13 [History] [place]-3 Fatty Acids [[place]-3] 2,000 mg PO BID 05/07/13 [History] Sulfamethoxazole/Trimethoprim [Bactrim Ds Tablet] 1 tab PO MOWEFR 05/07/13 [History] Vitamin E 400 unit PO BID 05/07/13 [History] Acetaminophen [Tylenol Arthritis] 1 tab PO ASDIRECTED 11/17/17 [History] Alendronate Sodium 70 mg PO Q7D 05/15/20 [History] Biotin 5,000 mcg PO BID 05/15/20 [History] Ocuvite Or 1 tab PO BID 05/15/20 [History] Potassium Chloride 20 meq PO DAILY 05/15/20 [History] Vitamin B Complex [B Complex] 1 each PO DAILY 05/15/20 [History] Ondansetron [Zofran] 4 mg SL Q8H PRN 08/31/20 [History] Past Medical History HEENT History: Reports: Cataract, Impaired Vision Cardiovascular History: Reports: Other (See Below) Other Cardiovascular History: heart murmur with Gastrointestinal History: Reports: Cholelithiasis Genitourinary History: Reports: Renal Calculus, UTI, 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: Fibroids, Musculoskeletal History: Reports: Arthritis, Osteoarthritis Other Musculoskeletal History: both knees are painful Psychiatric History: Reports: Depression, Psych Hospitalization(s), Suicidal Ideation Endocrine/Metabolic History: Reports: Hypothyroidism, Obesity/BMI 30+, Vitamin D Deficiency Hematologic History: Reports: B12 Deficiency, Iron Deficiency Oncologic (Cancer) History: Reports: Colon, Other (See Below) Other Oncologic History: adenocarcinoma - Infectious Disease History Infectious Disease History: Reports: Chicken Pox, Measles, Mononucleosis, Rubella - Past Surgical History Head Surgeries/Procedures: Reports: None HEENT Surgical History: Reports: Cataract Surgery Cardiovascular Surgical History: Reports: None GI Surgical History: Reports: Appendectomy, Bariatric Procedure, Cholecystectomy, Colonoscopy, EGD, Small Bowel, Other (See Below) Other GI Surgeries/Procedures: right colon resection Female Surgical History: Reports: D&C, Hysterectomy Endocrine Surgical History: Reports: None Musculoskeletal Surgical History: Reports: Shoulder Surgery Oncologic Surgical History: Reports: Other (See Below) Other Oncologic Surgeries/Procedures: right colon resection Dermatological Surgical History: Reports: None Social & Family History - Family History Oncologic: Reports: Cervix, Lung, Thyroid, Uterine, Other (See Below) Other Oncologic Family History: pituitary - Caffeine Use Caffeine Use: Reports: Coffee Review of Systems - Review of Systems Review Of Systems: See Below Constitutional: Denies: Fever Respiratory: Denies: Shortness of Breath, Hemoptysis GI/Abdominal: Denies: Abdominal Pain, Nausea, Vomiting Skin: Reports: Erythema (Significant erythema of the medial aspect of the left lower leg) Neurological: Denies: Headache Psychiatric: Reports: No Symptoms ED EXAM, GENERAL - Physical Exam Exam: See Below Exam Limited By: No Limitations General Appearance: Alert, No Apparent Distress Head: Atraumatic Respiratory/Chest: No Respiratory Distress, Lungs Clear Cardiovascular: Regular Rate, Rhythm. No: Tachycardia GI/Abdominal: Soft, Non-Tender Extremities: Other (Lower extremities do show significant bilateral lymphedema, however the left leg is more firm medially distal to the knee with erythema and tenderness, warmth) Neurological: Alert, Oriented Psychiatric: Normal Affect, Normal Mood Skin Exam: Other (see above) Course - Vital Signs Last Recorded V/S: Last Vital Signs Temp 97.8 F 11/09/20 10:32 Pulse 82 11/09/20 10:32 Resp 18 11/09/20 10:32 BP 90/58 L 11/09/20 10:32 Pulse Ox 95 11/09/20 10:32 - Orders/Labs/Meds Orders: Medication Orders Acetaminophen (Acetaminophen 325 Mg Tab) 650 mg PO Q4H PRN PRN Reason: Pain (Mild 1-3)/fever Apixaban (Apixaban 5 Mg Tab) 10 mg PO Q12H [facility] Stop: 11/15/20 06:01 Last Admin: 11/09/20 06:16 Dose: 10 mg Documented by: Admin: 11/08/20 18:10 Dose: 10 mg Documented by: PAU Apixaban (Apixaban 5 Mg Tab) 5 mg PO Q12H [facility] Aspirin (Aspirin 81 Mg Tab.Ec) 81 mg PO DAILY [facility] Last Admin: 11/09/20 10:17 Dose: 81 mg Documented by: BENNY Ondansetron HCl (Ondansetron 4 Mg/2 Ml Sdv) 4 mg IV Q4H PRN PRN Reason: Nausea/Vomiting Citalopram 40mg Tab ((Ptom)) 0 each PO DAILY [facility] Last Admin: 11/09/20 10:16 Dose: 1 each Documented by: BENNY Levothyroxine 137mcg (Tab (Ptom)) 1 each PO ACBREAKFAST CLEMENTE Polyethylene Glycol (Polyethylene Glycol 3350 Powder 17 Gm Packet) 17 gm PO DAILY PRN PRN Reason: Constipation Potassium Chloride (Potassium Chloride 20 Meq Tab.Er (Ptom)) 20 meq PO DAILY@0800 CLEMENTE Last Admin: 11/09/20 10:16 Dose: 20 meq Documented by: BENNY Trimethoprim/Sulfamethoxazole (Sulfamethoxazole/Trimethoprim 800-160 Mg Tab (Ptom)) 1 tab PO MoWeFr@0900 [facility] Meds: Medications Generic Name Dose Route Start Last Admin Trade Name Freq PRN Reason Stop Dose Admin Acetaminophen 650 mg 11/08/20 17:35 Acetaminophen 325 Mg Tab PO Q4H PRN Pain (Mild 1-3)/fever Apixaban 10 mg 11/08/20 18:00 11/09/20 06:16 Apixaban 5 Mg Tab PO 11/15/20 06:01 10 mg Q12H CLEMENTE Administration Apixaban 5 mg 11/15/20 18:00 Apixaban 5 Mg Tab PO Q12H CLEMENTE Aspirin 81 mg 11/09/20 09:00 11/09/20 10:17 Aspirin 81 Mg Tab.Ec PO 81 mg DAILY CLEMENTE Administration Ondansetron HCl 4 mg 11/08/20 17:35 Ondansetron 4 Mg/2 Ml Sdv IV Q4H PRN Nausea/Vomiting Citalopram 40mg Tab 0 each 11/09/20 10:00 11/09/20 10:16 (Ptom) PO 1 each DAILY CLEMENTE Administration Levothyroxine 137mcg 1 each 11/09/20 11:30 Tab (Ptom) PO ACBREAKFAST CLEMENTE Polyethylene Glycol 17 gm 11/08/20 17:35 Polyethylene Glycol 3350 Powder 17 Gm Packet PO DAILY PRN Constipation Potassium Chloride 20 meq 11/09/20 08:00 11/09/20 10:16 Potassium Chloride 20 Meq Tab.Er (Ptom) PO 20 meq DAILY@0800 CLEMENTE Administration Trimethoprim/Sulfamethoxazole 1 tab 11/10/20 09:00 Sulfamethoxazole/Trimethoprim 800-160 Mg Tab (Ptom) PO MoWeFr@0900 CLEMENTE Discontinued Medications Generic Name Dose Route Start Last Admin Trade Name Freq PRN Reason Stop Dose Admin Apixaban Confirm 11/09/20 06:06 11/09/20 06:16 Apixaban 2.5 Mg Tab Administered 11/09/20 06:07 Not Given Dose 10 mg .ROUTE .STK-MED ONE Ceftriaxone Sodium 2 gm/ 50 mls @ 100 mls/hr 11/08/20 14:31 11/08/20 14:56 Sodium Chloride IV 11/08/20 15:00 100 mls/hr ONETIME ONE Administration Non-Formulary Medication 325 mg 11/09/20 09:00 Aspirin [Aspirin] PO DAILY [facility] - Re-Assessments/Exams Free Text/Narrative Re-Assessment/Exam: 11/08/20 14:29 This patient does appear to have some localized cellulitis that is developed on the medial aspect of the left leg but she is not toxic and does not have symptoms of a systemic infection. Her vitals are normal and white count is normal. We will do a DVT study of the left leg, if positive she will likely need admission, if negative a dose of IV antibiotics followed by oral antibiotics may be sufficient. 11/08/20 15:51 So the ultrasound was positive for a deep vein thrombosis in the left leg. Discussed this with Dr. Mancia, the inflammation may be just directly related to the clot and not infection causing cellulitis but she will be admitted for anticoagulation and observation of the cellulitis. Departure - Departure Time of Disposition: 16:42 Disposition: Admitted As Inpatient 66 Clinical Impression: Cellulitis of left leg Left leg DVT Qualifiers: Affected thrombotic vein of extremity: unspecified lower extremity proximal vein Chronicity: acute Qualified Code(s): I82.4Y2 - Acute embolism and thrombosis of unspecified deep veins of left proximal lower extremity - Discharge Information Sepsis Event Note (ED) - Evaluation Sepsis Screening Result: No Definite Risk
[2020-11-08] MEDS ORDERED: cefTRIAXone 2 GM in Sodium Chloride 0.9% 50 ML IV ONE (14:31)
--- NOTE | 2020-11-08 17:06 | PCM.HP.2 ---
H&P History of Present Illness - General Date of Service: 11/08/20 Admit Problem/Dx: Admission Diagnosis/Problem Admission Diagnosis/Problem DVT, Deep venous thrombosis Source of Information: Patient, Old Records, Provider, RN Notes Reviewed History Limitations: Reports: No Limitations - History of Present Illness Initial Comments - Free Text/Narative: Ms. Marino is a 70-year-old woman who was admitted through the emergency department observation status for further management of left leg DVT. She was diagnosed with colon cancer in June of this year and underwent surgical resection. Since then has received chemotherapy for ongoing management which she completed about 3 weeks ago. She does have a longstanding history of lymphedema both lower extremities. Today she had noted increased swelling with erythema of her left lower leg. She was into the clinic for follow-up oncology visit and they referred her to the emergency department for further evaluation. Initial white blood cell count is within normal range and she denies any fevers chills or sweats. Venous Doppler study obtained of the left leg does show evidence of deep vein thrombosis extending into the thigh. She denies any prior history of DVT or pulmonary emboli. She also denies any family history of clotting abnormalities. There has been no recent history of injury to the leg, prolonged car rides, or airplane travel. She denies any other prolonged episodes of sitting. - Related Data Allergies/Adverse Reactions: Allergies Allergy/AdvReac Type Severity Reaction Status Date / Time adhesive Allergy Hives Verified 11/08/20 14:17 Aquacel Allergy Hives Uncoded 11/08/20 14:17 Home Medications: Home Meds Aspirin 325 mg PO DAILY 05/07/13 [History] Calcium Citrate/Vitamin D3 [Calcium Citrate + Caplet] 1,900 mg PO BID 05/07/13 [History] Cholecalciferol (Vitamin D3) [Vitamin D] 5,000 unit PO DAILY 05/07/13 [History] Citalopram [Citalopram Hbr] 40 mg PO DAILY 05/07/13 [History] Cyanocobalamin (Vitamin B-12) [Cyanocobalamin Injection] 1,000 mcg IM Q14D 05/07/13 [History] Cyanocobalamin (Vitamin B-12) [Vitamin B-12] 2,500 mcg SL DAILY 05/07/13 [History] Levothyroxine [Synthroid] 137 mcg PO DAILY 05/07/13 [History] Multivitamin [Multivitamins] 1 each PO DAILY 05/07/13 [History] [place]-3 Fatty Acids [[place]-3] 2,000 mg PO BID 05/07/13 [History] Sulfamethoxazole/Trimethoprim [Bactrim Ds Tablet] 1 tab PO MOWEFR 05/07/13 [History] Vitamin E 400 unit PO BID 05/07/13 [History] Acetaminophen [Tylenol Arthritis] 1 tab PO ASDIRECTED 11/17/17 [History] Alendronate Sodium 70 mg PO Q7D 05/15/20 [History] Biotin 5,000 mcg PO BID 05/15/20 [History] Ocuvite Or 1 tab PO BID 05/15/20 [History] Potassium Chloride 20 meq PO DAILY 05/15/20 [History] Vitamin B Complex [B Complex] 1 each PO DAILY 05/15/20 [History] Ondansetron [Zofran] 4 mg SL Q8H PRN 08/31/20 [History] Past Medical History HEENT History: Reports: Cataract, Impaired Vision Cardiovascular History: Reports: Other (See Below) Other Cardiovascular History: heart murmur with Gastrointestinal History: Reports: Cholelithiasis Genitourinary History: Reports: Renal Calculus, UTI, 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, Musculoskeletal History: Reports: Arthritis, Osteoarthritis Other Musculoskeletal History: both knees are painful Psychiatric History: Reports: Depression, Psych Hospitalization(s), Suicidal Ideation Endocrine/Metabolic History: Reports: Hypothyroidism, Obesity/BMI 30+, Vitamin D Deficiency Hematologic History: Reports: B12 Deficiency, Iron Deficiency Oncologic (Cancer) History: Reports: Colon, Other (See Below) Other Oncologic History: adenocarcinoma - Infectious Disease History Infectious Disease History: Reports: Chicken Pox, Measles, Mononucleosis, Rubella - Past Surgical History Head Surgeries/Procedures: Reports: None HEENT Surgical History: Reports: Cataract Surgery Cardiovascular Surgical History: Reports: None GI Surgical History: Reports: Appendectomy, Bariatric Procedure, Cholecystectomy, Colonoscopy, EGD, Small Bowel, Other (See Below) Other GI Surgeries/Procedures: right colon resection Female Surgical History: Reports: D&C, Hysterectomy Endocrine Surgical History: Reports: None Musculoskeletal Surgical History: Reports: Shoulder Surgery Oncologic Surgical History: Reports: Other (See Below) Other Oncologic Surgeries/Procedures: right colon resection Dermatological Surgical History: Reports: None Social & Family History - Family History Oncologic: Reports: Cervix, Lung, Thyroid, Uterine, Other (See Below) Other Oncologic Family History: pituitary - Caffeine Use Caffeine Use: Reports: Coffee H&P Review of Systems - Review of Systems: Review Of Systems: See Below General: Reports: No Symptoms HEENT: Reports: No Symptoms Pulmonary: Reports: No Symptoms Cardiovascular: Reports: Edema (History of edema both lower extremities worse on the left today). Denies: Chest Pain, Palpitations, Dyspnea on Exertion, Orthopnea, PND, Lightheadedness Gastrointestinal: Reports: No Symptoms Genitourinary: Reports: No Symptoms Musculoskeletal: Reports: No Symptoms Skin: Reports: No Symptoms Psychiatric: Reports: No Symptoms Neurological: Reports: No Symptoms Hematologic/Lymphatic: Reports: No Symptoms Immunologic: Reports: No Symptoms Exam - Exam Exam: See Below - Vital Signs Vital Signs: Last Vital Signs Temp 97.4 F 11/08/20 14:22 Pulse 73 11/08/20 14:22 Resp 14 11/08/20 14:22 BP 108/63 11/08/20 14:22 Pulse Ox 98 11/08/20 14:22 Weight: 189 lb - Exam Quality Assessment: DVT Prophylaxis General: Alert, Oriented, Cooperative HEENT: Conjunctiva Clear, Hearing Intact, Mucosa Moist & [place], Normal Nasal Septum, Posterior Pharynx Clear, Pupils Equal Neck: Supple, Trachea Midline, +2 Carotid Pulse wo Bruit Lungs: Clear to Auscultation, Normal Respiratory Effort Cardiovascular: Regular Rate, Regular Rhythm, Normal S1, Normal S2. No: Systolic Murmur, Diastolic Murmur GI/Abdominal Exam: Soft, Non-Tender, No Organomegaly, No Distention Back Exam: Normal Inspection, Full Range of Motion Extremities: Non-Tender, Pedal Edema, Increased Warmth, Redness Skin: Warm, Dry, Other (Mild erythema medial aspect of the left lower leg) Neurological: Cranial Nerves Intact, Strength Equal Bilateral, Normal Speech, Normal Tone, Sensation Intact. No: Focal Deficit Neuro Extensive - Mental Status: Alert, Oriented x3, Normal Mood/Affect, Normal Cognition, Memory Intact Sepsis Event Note - Evaluation Sepsis Screening Result: No Definite Risk - Focused Exam Vital Signs: Vital Signs Temp Pulse Resp BP Pulse Ox 11/08/20 14:22 97.4 F 73 14 108/63 98 11/08/20 14:17 97.4 F 73 14 108/63 98 *Q Meaningful Use (ADM) - VTE Risk Assess *Q Each Risk Factor Represents 1 Point: Swollen Legs, Current, Obesity ( BMI > 25 kg/m2) Total Score 1 Point Risk Factors: 2 Each Risk Factor Represents 2 Points: Age 60 - 74 Years, Malignancy (present or previous) Total Score 2 Point Risk Factors: 4 Each Risk Factor Represents 3 Points: None Total Score 3 Point Risk Factors: 0 Each Risk Factor Represents 5 Points: None Total Score 5 Point Risk Factors: 0 Venous Thromboembolism Risk Factor Score *Q: 6 Problem List Initiated/Reviewed/Updated: Yes Orders Last 24hrs: Active Orders 24 hr Category Date Time Status Patient Status Manage Transfer [TRANSFER] Routine ADT 11/08/20 16:53 Ordered VL Duplex Lwr Ext Veins Ltd Lt [US] Stat Exams 11/08/20 15:01 Taken CBC WITH AUTO DIFF [HEME] Stat Lab 11/08/20 16:53 Ordered COMPREHENSIVE METABOLIC PN,CMP [CHEM] Stat Lab 11/08/20 16:53 Ordered PROCALCITONIN [CHEM] Stat Lab 11/08/20 16:53 Ordered Resuscitation Status Routine Resus Stat 11/08/20 16:56 Ordered Assessment/Plan Comment:: ASSESSMENT AND PLAN DEEP VEIN THROMBOSIS LEFT LEG-other than her underlying cancer which apparently is currently in remission, no other significant risk factors or obvious precipitating factors. No prior history of DVT, PE, or other clotting abnormalities. -Initiate anticoagulation with Eliquis 10 mg every 12 hours for 1 week, then 5 mg twice daily thereafter for a period of 3 to 6 months ERYTHEMA LEFT LOWER LEG-likely secondary to documented DVT. There is some associated swelling of the lower leg. It is only minimally tender to palpation and not significantly warm. White blood cell count has been normal. -Hold on further antibiotic therapy -Monitor closely for any evidence of ongoing infection -Procalcitonin level COLON CANCER-status post surgical resection and chemotherapy. Apparently no evidence of active disease at the present time MAINTENANCE ISSUES -DVT prophylaxis; Eliquis as above -GI prophylaxis; not indicated -Willis catheter; not indicated -Nutrition; regular diet -Nicotine dependence; not required CODE STATUS-FULL CODE ADMISSION STATUS-this patient will be admitted to observation status, expect no more than a one night hospital stay for evaluation and management of problems as outlined above. DISPOSITION-anticipate discharge to home after the hospital stay. PRIMARY CARE PROVIDER-Dr. Candelaria - Mortality Measure Prognosis:: Good
[2020-11-08] MEDS ORDERED: Ondansetron 4 MG/2 ML SDV IV PRN (17:35)
[2020-11-08] MEDS ORDERED: Acetaminophen 325 MG Tab PO PRN (17:35)
[2020-11-08] MEDS ORDERED: Polyethylene Glycol 3350 Powder 17 GM Packet PO PRN (17:35)
[2020-11-08] MEDS: Apixaban 5 MG Tab PO SCH (18:10)
[2020-11-09] MEDS ORDERED: Apixaban 2.5 MG Tab ONE (06:06)
[2020-11-09] MEDS: Apixaban 5 MG Tab PO SCH (06:16)
[2020-11-09] MEDS ORDERED: Levothyroxine 25 MCG Tab PO SCH (07:30)
[2020-11-09] MEDS ORDERED: Levothyroxine 112 MCG Tab PO SCH (07:30)
[2020-11-09] MEDS ORDERED: Citalopram 20 MG Tab PO SCH (09:00)
[2020-11-09] MEDS ORDERED: Non-Formulary Medication 1 Each (Aspirin [Aspirin] 325 MG Tablet) PO SCH (09:00)
--- NOTE | 2020-11-09 09:17 | US ---
VL Duplex Lwr Ext Veins Ltd Lt INDICATION: swelling, pain left leg FINDINGS: Ultrasound examination of the lower extremity using Doppler and compressive technique demonstrates that the common femoral and superficial femoral veins are patent and compressible. The popliteal vein is noncompressible. No flow is seen. IMPRESSION: Deep venous thrombosis in the popliteal vein.
[2020-11-09] MEDS: Potassium Chloride 20 MEQ Tab.ER (PTOM) PO SCH (10:16)
[2020-11-09] MEDS: CITALOPRAM 40MG TAB (PTOM) PO SCH (10:16)
[2020-11-09] MEDS: Aspirin 81 MG Tab.EC PO SCH (10:17)
[2020-11-09] MEDS: LEVOTHYROXINE 137 MCG PO SCH (10:30)
--- NOTE | 2020-11-09 15:53 | PCM.PN ---
- General Info Date of Service: 11/09/20 Subjective Update: Ms. Marino since admission, she continues to experience some swelling in her left lower extremity. Erythema of the left lower extremity has essentially resolved. Functional Status: Reports: Tolerating Diet, Ambulating, Urinating - Review of Systems General: Reports: No Symptoms Pulmonary: Reports: No Symptoms Cardiovascular: Reports: Edema. Denies: Chest Pain, Palpitations, Dyspnea on Exertion, Orthopnea, PND, Lightheadedness Gastrointestinal: Reports: No Symptoms - Patient Data Vitals - Most Recent: Last Vital Signs Temp 98.9 F 11/09/20 14:00 Pulse 73 11/09/20 14:00 Resp 18 11/09/20 14:00 BP 93/57 L 11/09/20 14:00 Pulse Ox 95 11/09/20 14:00 Weight - Most Recent: 192 lb 1.067 oz I&O - Last 24 Hours: Intake & Output 11/09/20 11/09/20 11/09/20 06:59 14:59 22:59 Intake Total 600 500 Balance 600 500 Lab Results Last 24 Hours: Laboratory Results - last 24 hr 11/08/20 11/08/20 11/08/20 Range/Units 17:14 17:14 17:14 WBC 5.0 (4.5-11.0) K/uL RBC 3.07 L (3.30-5.50) M/uL Hgb 10.3 L (12.0-15.0) g/dL Hct 31.0 L (36.0-48.0) % MCV 101 H (80-98) fL MCH 34 H (27-31) pg MCHC 33 (32-36) % Plt Count 274 (150-400) K/uL Add Manual Diff Yes Neutrophils % (Manual) 36 (36-66) % Band Neutrophils % 3 L (5-11) % Lymphocytes % (Manual) 41 (24-44) % Monocytes % (Manual) 19 H (2-6) % Eosinophils % (Manual) 1 L (2-4) % Sodium 142 (140-148) mmol/L Potassium 3.8 (3.6-5.2) mmol/L Chloride 106 (100-108) mmol/L Carbon Dioxide 27 (21-32) mmol/L Anion Gap 8.9 (5.0-14.0) mmol/L BUN 15 D (7-18) mg/dL Creatinine 0.5 L (0.6-1.0) mg/dL Est Cr Clr Drug Dosing 94.21 mL/min Estimated GFR (MDRD) > 60 (>60) Glucose 68 L (74-106) mg/dL Calcium 7.5 L (8.5-10.1) mg/dL Total Bilirubin 0.3 (0.2-1.0) mg/dL AST 41 H D (15-37) U/L ALT 24 (12-78) U/L Alkaline Phosphatase 169 H D (46-116) U/L Total Protein 4.6 L (6.4-8.2) g/dL Albumin 1.9 L (3.4-5.0) g/dL Globulin 2.7 (2.3-3.5) g/dL Albumin/Globulin Ratio 0.7 L (1.2-2.2) Procalcitonin < 0.05 ng/mL 11/09/20 11/09/20 Range/Units 05:46 05:46 WBC 4.5 (4.5-11.0) K/uL RBC 2.87 L (3.30-5.50) M/uL Hgb 9.5 L (12.0-15.0) g/dL Hct 29.5 L (36.0-48.0) % MCV 103 H (80-98) fL MCH 33 H (27-31) pg MCHC 32 (32-36) % Plt Count 264 (150-400) K/uL Add Manual Diff Neutrophils % (Manual) (36-66) % Band Neutrophils % (5-11) % Lymphocytes % (Manual) (24-44) % Monocytes % (Manual) (2-6) % Eosinophils % (Manual) (2-4) % Sodium 144 (140-148) mmol/L Potassium 3.8 (3.6-5.2) mmol/L Chloride 108 (100-108) mmol/L Carbon Dioxide 28 (21-32) mmol/L Anion Gap 8.4 (5.0-14.0) mmol/L BUN 12 (7-18) mg/dL Creatinine 0.5 L (0.6-1.0) mg/dL Est Cr Clr Drug Dosing 94.21 mL/min Estimated GFR (MDRD) > 60 (>60) Glucose 65 L (74-106) mg/dL Calcium 7.3 L (8.5-10.1) mg/dL Total Bilirubin (0.2-1.0) mg/dL AST (15-37) U/L ALT (12-78) U/L Alkaline Phosphatase (46-116) U/L Total Protein (6.4-8.2) g/dL Albumin (3.4-5.0) g/dL Globulin (2.3-3.5) g/dL Albumin/Globulin Ratio (1.2-2.2) Procalcitonin ng/mL Med Orders - Current: Current Medications Acetaminophen (Acetaminophen 325 Mg Tab) 650 mg PO Q4H PRN PRN Reason: Pain (Mild 1-3)/fever Aspirin (Aspirin 81 Mg Tab.Ec) 81 mg PO DAILY [facility] Last Admin: 11/09/20 10:17 Dose: 81 mg Documented by: Ondansetron HCl (Ondansetron 4 Mg/2 Ml Sdv) 4 mg IV Q4H PRN PRN Reason: Nausea/Vomiting Citalopram 40mg Tab ((Ptom)) 0 each PO DAILY [facility] Last Admin: 11/09/20 10:16 Dose: 1 each Documented by: Levothyroxine 137mcg (Tab (Ptom)) 1 each PO ACBREAKFAST [facility] Last Admin: 11/09/20 10:30 Dose: 1 each Documented by: Polyethylene Glycol (Polyethylene Glycol 3350 Powder 17 Gm Packet) 17 gm PO DAILY PRN PRN Reason: Constipation Potassium Chloride (Potassium Chloride 20 Meq Tab.Er (Ptom)) 20 meq PO DAILY@0800 [facility] Last Admin: 11/09/20 10:16 Dose: 20 meq Documented by: Rivaroxaban (Rivaroxaban 15 Mg Tab) 15 mg PO Q12H [facility] Trimethoprim/Sulfamethoxazole (Sulfamethoxazole/Trimethoprim 800-160 Mg Tab (Ptom)) 1 tab PO MoWeFr@0900 [facility] Discontinued Medications Apixaban (Apixaban 5 Mg Tab) 10 mg PO Q12H [facility] Stop: 11/15/20 06:01 Last Admin: 11/09/20 06:16 Dose: 10 mg Documented by: Apixaban (Apixaban 5 Mg Tab) 5 mg PO Q12H [facility] Apixaban (Apixaban 2.5 Mg Tab) Confirm Administered Dose 10 mg .ROUTE .STK-MED ONE Stop: 11/09/20 06:07 Last Admin: 11/09/20 06:16 Dose: Not Given Documented by: Ceftriaxone Sodium 2 gm/ (Sodium Chloride) 50 mls @ 100 mls/hr IV ONETIME ONE Stop: 11/08/20 15:00 Last Admin: 11/08/20 14:56 Dose: 100 mls/hr Documented by: Non-Formulary Medication (Aspirin [Aspirin]) 325 mg PO DAILY [facility] - Exam Quality Assessment: DVT Prophylaxis General: Alert, Oriented, Cooperative, No Acute Distress Lungs: Clear to Auscultation, Normal Respiratory Effort Cardiovascular: Regular Rate, Regular Rhythm, No Murmurs GI/Abdominal Exam: Soft, Non-Tender, No Organomegaly, No Distention Extremities: Non-Tender, No Pedal Edema, Other (Erythema of the left lower leg has resolved) Skin: Warm, Dry - Patient Data Lab Results Last 24 hrs: Laboratory Results - last 24 hr 11/08/20 11/08/20 11/08/20 Range/Units 17:14 17:14 17:14 WBC 5.0 (4.5-11.0) K/uL RBC 3.07 L (3.30-5.50) M/uL Hgb 10.3 L (12.0-15.0) g/dL Hct 31.0 L (36.0-48.0) % MCV 101 H (80-98) fL MCH 34 H (27-31) pg MCHC 33 (32-36) % Plt Count 274 (150-400) K/uL Add Manual Diff Yes Neutrophils % (Manual) 36 (36-66) % Band Neutrophils % 3 L (5-11) % Lymphocytes % (Manual) 41 (24-44) % Monocytes % (Manual) 19 H (2-6) % Eosinophils % (Manual) 1 L (2-4) % Sodium 142 (140-148) mmol/L Potassium 3.8 (3.6-5.2) mmol/L Chloride 106 (100-108) mmol/L Carbon Dioxide 27 (21-32) mmol/L Anion Gap 8.9 (5.0-14.0) mmol/L BUN 15 D (7-18) mg/dL Creatinine 0.5 L (0.6-1.0) mg/dL Est Cr Clr Drug Dosing 94.21 mL/min Estimated GFR (MDRD) > 60 (>60) Glucose 68 L (74-106) mg/dL Calcium 7.5 L (8.5-10.1) mg/dL Total Bilirubin 0.3 (0.2-1.0) mg/dL AST 41 H D (15-37) U/L ALT 24 (12-78) U/L Alkaline Phosphatase 169 H D (46-116) U/L Total Protein 4.6 L (6.4-8.2) g/dL Albumin 1.9 L (3.4-5.0) g/dL Globulin 2.7 (2.3-3.5) g/dL Albumin/Globulin Ratio 0.7 L (1.2-2.2) Procalcitonin < 0.05 ng/mL 11/09/20 11/09/20 Range/Units 05:46 05:46 WBC 4.5 (4.5-11.0) K/uL RBC 2.87 L (3.30-5.50) M/uL Hgb 9.5 L (12.0-15.0) g/dL Hct 29.5 L (36.0-48.0) % MCV 103 H (80-98) fL MCH 33 H (27-31) pg MCHC 32 (32-36) % Plt Count 264 (150-400) K/uL Add Manual Diff Neutrophils % (Manual) (36-66) % Band Neutrophils % (5-11) % Lymphocytes % (Manual) (24-44) % Monocytes % (Manual) (2-6) % Eosinophils % (Manual) (2-4) % Sodium 144 (140-148) mmol/L Potassium 3.8 (3.6-5.2) mmol/L Chloride 108 (100-108) mmol/L Carbon Dioxide 28 (21-32) mmol/L Anion Gap 8.4 (5.0-14.0) mmol/L BUN 12 (7-18) mg/dL Creatinine 0.5 L (0.6-1.0) mg/dL Est Cr Clr Drug Dosing 94.21 mL/min Estimated GFR (MDRD) > 60 (>60) Glucose 65 L (74-106) mg/dL Calcium 7.3 L (8.5-10.1) mg/dL Total Bilirubin (0.2-1.0) mg/dL AST (15-37) U/L ALT (12-78) U/L Alkaline Phosphatase (46-116) U/L Total Protein (6.4-8.2) g/dL Albumin (3.4-5.0) g/dL Globulin (2.3-3.5) g/dL Albumin/Globulin Ratio (1.2-2.2) Procalcitonin ng/mL Result Diagrams: 11/09/20 05:46 11/09/20 05:46 Sepsis Event Note - Evaluation Sepsis Screening Result: No Definite Risk - Focused Exam Vital Signs: Vital Signs Temp Pulse Resp BP Pulse Ox 11/09/20 14:00 98.9 F 73 18 93/57 L 95 11/09/20 10:32 97.8 F 82 18 90/58 L 95 11/09/20 07:13 96.9 F 64 18 110/67 97 11/09/20 04:57 98.2 F 67 16 103/61 96 - Problem List Review Problem List Initiated/Reviewed/Updated: Yes - My Orders Last 24 Hours: My Active Orders 11/08/20 16:56 Resuscitation Status Routine 11/08/20 Dinner Bariatric Diet [DIET] 11/08/20 17:35 Acetaminophen [TylenoL] 650 mg PO Q4H PRN Ondansetron [Zofran] 4 mg IV Q4H PRN polyethylene glycoL 3350 [MiraLAX] 17 gm PO DAILY PRN 11/08/20 17:35 Patient Status [ADT] Routine Ambulate [RC] QID Height and Weight [RC] 0500 Intake and Output [RC] QSHIFT Notify Provider Vital Signs [RC] ASDIRECTED Oxygen Therapy [RC] PRN Up With Assistance [RC] ASDIRECTED Up to Chair [RC] QID Vital Signs [RC] Q4H VTE Pharmacological Contraindications [AST] Per Unit Routine 11/09/20 08:00 Potassium Chloride [Klor-Con M20] 20 meq PO DAILY@0800 11/09/20 09:00 Aspirin [Halfprin] 81 mg PO DAILY 11/09/20 10:00 Patient's Own Medication [Ptom] 0 each PO DAILY 11/09/20 11:30 Patient's Own Medication [Ptom] 1 each PO ACBREAKFAST 11/09/20 18:00 Rivaroxaban [Xarelto] 15 mg PO Q12H 11/10/20 09:00 Sulfamethoxazole/Trimethoprim [Septra DS] 1 tab PO MoWeFr@0900 - Plan Plan:: ASSESSMENT AND PLAN DEEP VEIN THROMBOSIS LEFT LEG-stable since admission, erythema of the left lower leg has resolved. Continued edema, left greater than right -Initiate anticoagulation with Eliquis 10 mg every 12 hours for 1 week, then 5 mg twice daily thereafter for a period of 3 to 6 months -Furosemide 20 mg IV now ERYTHEMA LEFT LOWER LEG-resolved -Hold on further antibiotic therapy -Monitor closely for any evidence of ongoing infection -Procalcitonin level COLON CANCER-status post surgical resection and chemotherapy. Apparently no evidence of active disease at the present time MAINTENANCE ISSUES -DVT prophylaxis; Eliquis as above -GI prophylaxis; not indicated -Willis catheter; not indicated -Nutrition; regular diet -Nicotine dependence; not required CODE STATUS-FULL CODE ADMISSION STATUS-this patient will be admitted to observation status, expect no more than a one night hospital stay for evaluation and management of problems as outlined above. DISPOSITION-anticipate discharge to home after the hospital stay. PRIMARY CARE PROVIDER-Dr. Candelaria
[2020-11-09] MEDS ORDERED: Furosemide 20 MG/2 ML VIAL IVPUSH ONE (16:15)
[2020-11-09] MEDS: Rivaroxaban 15 MG Tab PO SCH (17:17)
[2020-11-10] MEDS: Rivaroxaban 15 MG Tab PO SCH (05:39)
[2020-11-10] MEDS: Potassium Chloride 20 MEQ Tab.ER (PTOM) PO SCH (07:31)
[2020-11-10] MEDS: LEVOTHYROXINE 137 MCG PO SCH (07:34)
[2020-11-10] MEDS ORDERED: Furosemide 20 MG/2 ML VIAL IVPUSH ONE (08:59)
[2020-11-10] MEDS ORDERED: Potassium Chloride 20 MEQ Tab.ER PO ONE (09:00)
[2020-11-10] MEDS ORDERED: Sulfamethoxazole/Trimethoprim 800-160 MG Tab (PTOM) PO SCH (09:00)
[2020-11-10] MEDS: Aspirin 81 MG Tab.EC PO SCH (11:20)
[2020-11-10] MEDS: CITALOPRAM 40MG TAB (PTOM) PO SCH (11:21)
--- NOTE | 2020-11-10 13:44 | PCM.DCSUM1 ---
Discharge Summary - Hospital Course Brief History: Ms. Marino is a 70-year-old woman who was admitted through the emergency department with swelling and erythema of her left lower leg secondary to deep vein thrombosis. - Discharge Data Discharge Date: 11/10/20 Discharge Disposition: Home, Self-Care 01 Condition: Stable - Referral to Home Health Primary Care Physician: Tuan Candelaria MD - Discharge Diagnosis/Problem(s) (1) Left leg DVT SNOMED Code(s): 009917830 ICD Code: I82.402 - ACUTE EMBOLISM AND THOMBOS UNSP DEEP VEINS OF L LOW EXTREM Status: Acute Current Visit: Yes Qualifiers: Affected thrombotic vein of extremity: unspecified lower extremity proximal vein Chronicity: acute Qualified Code(s): I82.4Y2 - Acute embolism and thrombosis of unspecified deep veins of left proximal lower extremity (2) History of bariatric surgery SNOMED Code(s): 382498606, 429372400 ICD Code: Z98.84 - BARIATRIC SURGERY STATUS Status: Chronic Current Visit: No - Patient Summary/Data Hospital Course: Ms. Marino is a 70-year-old woman who was admitted through the emergency department observation status for further management of left leg DVT. She was diagnosed with colon cancer in June of this year and underwent surgical resection. Since then has received chemotherapy for ongoing management which she completed about 3 weeks ago. She does have a longstanding history of lymphedema both lower extremities. Today she had noted increased swelling with erythema of her left lower leg. She was into the clinic for follow-up oncology visit and they referred her to the emergency department for further evaluation. Initial white blood cell count is within normal range and she denies any fevers chills or sweats. Venous Doppler study obtained of the left leg does show evidence of deep vein thrombosis extending into the thigh. She denies any prior history of DVT or pulmonary emboli. She also denies any family history of clotting abnormalities. There has been no recent history of injury to the leg, prolonged car rides, or airplane travel. She denies any other prolonged episodes of sitting. On admission she was started on Eliquis twice daily for management of her deep vein thrombosis. After insurance coverage was investigated it was determined that she would have better coverage with the use of Xarelto. She was converted to Xarelto 15 mg twice daily and will be on this dose for a total of 21 days. Following this she will be converted to Xarelto 20 mg once daily. She was monitored closely for any evidence of infection in the leg. She had no fevers during hospitalization and erythema seem to occur intermittently, associated with increased swelling in the leg. She did receive 2 doses of IV furosemide because of edema and by the time of discharge edema had improved significantly. Activity will be as tolerated and she will continue her usual diet. Follow-up appointment will be scheduled with her primary care provider within 1 week. - Patient Instructions Diet: Usual Diet as Tolerated Activity: As Tolerated Other/Special Instructions: Please schedule follow-up appointment with Dr. Candelaria within 1 week. - Discharge Plan *PRESCRIPTION DRUG MONITORING PROGRAM REVIEWED*: Not Applicable *COPY OF PRESCRIPTION DRUG MONITORING REPORT IN PATIENT [place]: Not Applicable Prescriptions/Med Rec: Rivaroxaban [Xarelto] 15 mg PO Q12H #40 tablet Home Medications: Home Meds Aspirin 325 mg PO DAILY 05/07/13 [History] Calcium Citrate/Vitamin D3 [Calcium Citrate + Caplet] 1,900 mg PO BID 05/07/13 [History] Cholecalciferol (Vitamin D3) [Vitamin D3] 5,000 unit PO DAILY 05/07/13 [History] Citalopram [Citalopram HBr] 40 mg PO DAILY 05/07/13 [History] Cyanocobalamin (Vitamin B-12) [Cyanocobalamin Injection] 1,000 mcg IM Q14D 05/07/13 [History] Cyanocobalamin (Vitamin B-12) [Vitamin B-12] 2,500 mcg SL DAILY 05/07/13 [History] Levothyroxine [Synthroid] 137 mcg PO DAILY 05/07/13 [History] Multivitamin [Multivitamins] 1 each PO DAILY 05/07/13 [History] Standish-3 Fatty Acids [Standish-3] 2,000 mg PO BID 05/07/13 [History] Sulfamethoxazole/Trimethoprim [Bactrim Ds Tablet] 1 tab PO MOWEFR 05/07/13 [History] Vitamin E 400 unit PO BID 05/07/13 [History] Acetaminophen [Tylenol Arthritis] 1 tab PO ASDIRECTED 11/17/17 [History] Alendronate Sodium 70 mg PO Q7D 05/15/20 [History] Biotin 5,000 mcg PO BID 05/15/20 [History] Ocuvite Or 1 tab PO BID 05/15/20 [History] Potassium Chloride 20 meq PO DAILY 05/15/20 [History] Vitamin B Complex [B Complex] 1 each PO DAILY 05/15/20 [History] Ondansetron [Zofran] 4 mg SL Q8H PRN 08/31/20 [History] Rivaroxaban [Xarelto] 15 mg PO Q12H #40 tablet 11/10/20 [Rx] Patient Handouts: Rivaroxaban oral tablets, Deep Vein Thrombosis Referrals: Tuan Candelaria MD [Primary Care Provider] - - Discharge Summary/Plan Comment DC Time >30 min.: No - Patient Data Vitals - Most Recent: Last Vital Signs Temp 98.1 F 11/10/20 12:45 Pulse 71 11/10/20 12:45 Resp 16 11/10/20 12:45 BP 105/61 11/10/20 12:45 Pulse Ox 97 11/10/20 09:29 Weight - Most Recent: 183 lb 9.6 oz I&O - Last 24 hours: Intake & Output 11/09/20 11/10/20 11/10/20 22:59 06:59 14:59 Intake Total 400 500 240 Output Total 800 1500 Balance -400 -1000 240 Lab Results - Last 24 hrs: Laboratory Results - last 24 hr 11/10/20 Range/Units 05:50 Sodium 144 (140-148) mmol/L Potassium 3.5 L (3.6-5.2) mmol/L Chloride 109 H (100-108) mmol/L Carbon Dioxide 30 (21-32) mmol/L Anion Gap 8.5 (5.0-14.0) mmol/L BUN 11 (7-18) mg/dL Creatinine 0.5 L (0.6-1.0) mg/dL Est Cr Clr Drug Dosing 94.06 mL/min Estimated GFR (MDRD) > 60 (>60) Glucose 73 L (74-106) mg/dL Calcium 7.3 L (8.5-10.1) mg/dL Med Orders - Current: Current Medications Acetaminophen (Acetaminophen 325 Mg Tab) 650 mg PO Q4H PRN PRN Reason: Pain (Mild 1-3)/fever Last Admin: 11/10/20 07:32 Dose: 1,300 mg Documented by: Aspirin (Aspirin 81 Mg Tab.Ec) 81 mg PO DAILY [facility] Last Admin: 11/10/20 11:20 Dose: Not Given Documented by: Heparin Sodium (Porcine) (Heparin Sodium 100 Units/Ml 5 Ml Syringe) 500 units FLUSH ASDIRECTED PRN PRN Reason: Keep Vein Open Last Admin: 11/10/20 09:47 Dose: 500 units Documented by: Ondansetron HCl (Ondansetron 4 Mg/2 Ml Sdv) 4 mg IV Q4H PRN PRN Reason: Nausea/Vomiting Last Admin: 11/10/20 09:47 Dose: 4 mg Documented by: Citalopram 40mg Tab ((Ptom)) 0 each PO DAILY [facility] Last Admin: 11/10/20 11:21 Dose: 1 each Documented by: Levothyroxine 137mcg (Tab (Ptom)) 1 each PO ACBREAKFAST [facility] Last Admin: 11/10/20 07:34 Dose: 1 each Documented by: Polyethylene Glycol (Polyethylene Glycol 3350 Powder 17 Gm Packet) 17 gm PO DAILY PRN PRN Reason: Constipation Potassium Chloride (Potassium Chloride 20 Meq Tab.Er (Ptom)) 20 meq PO DAILY@0800 [facility] Last Admin: 11/10/20 07:31 Dose: 20 meq Documented by: Rivaroxaban (Rivaroxaban 15 Mg Tab) 15 mg PO Q12H [facility] Last Admin: 11/10/20 05:39 Dose: 15 mg Documented by: Trimethoprim/Sulfamethoxazole (Sulfamethoxazole/Trimethoprim 800-160 Mg Tab (Ptom)) 1 tab PO MoWeFr@0900 [facility] Last Admin: 11/10/20 13:08 Dose: 1 tab Documented by: Discontinued Medications Apixaban (Apixaban 5 Mg Tab) 10 mg PO Q12H [facility] Stop: 11/15/20 06:01 Last Admin: 11/09/20 06:16 Dose: 10 mg Documented by: Apixaban (Apixaban 5 Mg Tab) 5 mg PO Q12H [facility] Apixaban (Apixaban 2.5 Mg Tab) Confirm Administered Dose 10 mg .ROUTE .STK-MED ONE Stop: 11/09/20 06:07 Last Admin: 11/09/20 06:16 Dose: Not Given Documented by: Furosemide (Furosemide 20 Mg/2 Ml Vial) 20 mg IVPUSH NOW ONE Stop: 11/09/20 16:16 Last Admin: 11/09/20 17:17 Dose: 20 mg Documented by: Furosemide (Furosemide 20 Mg/2 Ml Vial) 20 mg IVPUSH NOW ONE Stop: 11/10/20 09:00 Last Admin: 11/10/20 09:47 Dose: 20 mg Documented by: Ceftriaxone Sodium 2 gm/ (Sodium Chloride) 50 mls @ 100 mls/hr IV ONETIME ONE Stop: 11/08/20 15:00 Last Admin: 11/08/20 14:56 Dose: 100 mls/hr Documented by: Non-Formulary Medication (Aspirin [Aspirin]) 325 mg PO DAILY [facility] Potassium Chloride (Potassium Chloride 20 Meq Tab.Er) 40 meq PO ONETIME ONE Stop: 11/10/20 09:01 Last Admin: 11/10/20 13:07 Dose: 40 meq Documented by: - Exam Quality Assessment: Reports: DVT Prophylaxis General: Reports: Alert, Oriented, Cooperative, No Acute Distress Lungs: Reports: Clear to Auscultation, Normal Respiratory Effort Cardiovascular: Reports: Regular Rate, Regular Rhythm, No Murmurs GI/Abdominal Exam: Soft, Non-Tender, No Organomegaly, No Distention *Q Meaningful Use (DIS) - VTE *Q VTE Pharmacological Contraindications *Q: High INR Value
[2020-11-15] MEDS ORDERED: Apixaban 5 MG Tab PO SCH (18:00)
== END 2020-11-10 15:00 | disposition home or self-care (01) ==
LOC: JP.ED 13:55 → JP.MS 16:53
PROVIDERS: ADMIT Hospitalist; ATTEND Hospitalist
DX: I82.402 Acute embolism and thrombosis of unspecified deep veins of left lower extremity (principal); E03.9 Hypothyroidism, unspecified; E66.9 Obesity, unspecified; E55.9 Vitamin D deficiency, unspecified; Z91.048 Other nonmedicinal substance allergy status; Z79.82 Long term (current) use of aspirin; Z79.899 Other long term (current) drug therapy; Z88.8 Allergy status to other drugs, medicaments and biological substances; Z79.890 Hormone replacement therapy; Z85.038 Personal history of other malignant neoplasm of large intestine; Z68.30 Body mass index [BMI] 30.0-30.9, adult
CPT/HCPCS: 36415; 80048; 80053; 84145; 85025; 85027; 93971; 96365; 96375; 96376; 99284; A9270; G0378; J0696; J1642; J1940; J2405

== ENCOUNTER 2020-11-20 19:22 | Emergency (ER) | payer MEDICARE, BC ==
--- NOTE | 2020-11-20 20:25 | EDM.PDOC ---
ED HPI GENERAL MEDICAL PROBLEM - General Chief Complaint: General Stated Complaint: left hip pain Time Seen by Provider: 11/20/20 20:15 Source of Information: Reports: Patient, Family History Limitations: Reports: No Limitations - History of Present Illness INITIAL COMMENTS - FREE TEXT/NARRATIVE: 70 year old female with history of DVT diagnosed 11/08/20 presenting with left hip and groin pain. The patient reports that this evening she went to stand up from her chair when she felt a sudden pain in her left groin and hip. The pain was so severe that she felt like it was difficult to move her leg or bear weight. She is concerned that her blood clot is getting worse. She reports that she has chronic lymphedema in both legs, but has had increased swelling in the left leg since the DVT diagnosis. She also still has some erythema to the LLE, but reports it is improving. She is taking Xarelto as prescribed for the DVT. She denies any chest pain or SOB. Left Hip Pain Score (Numeric/FACES): 4 - Related Data Allergies Allergy/AdvReac Type Severity Reaction Status Date / Time adhesive Allergy Hives Verified 11/08/20 14:17 Aquacel Allergy Hives Uncoded 11/08/20 14:17 Home Meds: Home Meds Aspirin 325 mg PO DAILY 05/07/13 [History] Calcium Citrate/Vitamin D3 [Calcium Citrate + Caplet] 1,900 mg PO BID 05/07/13 [History] Citalopram [Citalopram HBr] 40 mg PO DAILY 05/07/13 [History] Cyanocobalamin (Vitamin B-12) [Cyanocobalamin Injection] 1,000 mcg IM Q14D 05/07/13 [History] Cyanocobalamin (Vitamin B-12) [Vitamin B-12] 2,500 mcg SL DAILY 05/07/13 [History] Levothyroxine [Synthroid] 137 mcg PO DAILY 05/07/13 [History] Acetaminophen [Tylenol Arthritis] 1 tab PO Q8H 11/17/17 [History] Potassium Chloride 20 meq PO DAILY 05/15/20 [History] Vitamin B Complex [B Complex] 1 each PO DAILY 05/15/20 [History] Rivaroxaban [Xarelto] 15 mg PO Q12H #40 tablet 11/10/20 [Rx] Celecoxib [CeleBREX] 200 mg PO DAILY 11/20/20 [History] Ferrous Sulfate 325 mg PO BID 11/20/20 [History] Past Medical History HEENT History: Reports: Cataract, Impaired Vision Cardiovascular History: Reports: Other (See Below) Other Cardiovascular History: heart murmur with Gastrointestinal History: Reports: Cholelithiasis Genitourinary History: Reports: Renal Calculus, UTI, Recurrent [employer] COMMUNICATIONS History: Reports: Fibroids, Musculoskeletal History: Reports: Arthritis, Osteoarthritis Other Musculoskeletal History: both knees are painful Psychiatric History: Reports: Depression, Psych Hospitalization(s), Suicidal Ideation Endocrine/Metabolic History: Reports: Hypothyroidism, Obesity/BMI 30+, Vitamin D Deficiency Hematologic History: Reports: B12 Deficiency, Iron Deficiency Oncologic (Cancer) History: Reports: Colon, Other (See Below) Other Oncologic History: adenocarcinoma Dermatologic History: Reports: Other (See Below) Other Dermatologic History: lymphedema - Infectious Disease History Infectious Disease History: Reports: Chicken Pox, Measles, Mononucleosis, Rubella - Past Surgical History Head Surgeries/Procedures: Reports: None HEENT Surgical History: Reports: Cataract Surgery Cardiovascular Surgical History: Reports: None GI Surgical History: Reports: Appendectomy, Bariatric Procedure, Cholecystectomy, Colonoscopy, EGD, Small Bowel, Other (See Below) Other GI Surgeries/Procedures: right colon resection Female Surgical History: Reports: D&C, Hysterectomy Endocrine Surgical History: Reports: None Musculoskeletal Surgical History: Reports: Shoulder Surgery Oncologic Surgical History: Reports: Other (See Below) Other Oncologic Surgeries/Procedures: right colon resection Dermatological Surgical History: Reports: None Social & Family History - Family History Oncologic: Reports: Cervix, Lung, Thyroid, Uterine, Other (See Below) Other Oncologic Family History: pituitary - Tobacco Use Tobacco Use Status *Q: Never Tobacco User - Caffeine Use Caffeine Use: Reports: Coffee - Recreational Drug Use Recreational Drug Use: No ED ROS GENERAL - Review of Systems Review Of Systems: Comprehensive ROS is negative, except as noted in HPI. ED EXAM, GENERAL - Physical Exam Exam: See Below Exam Limited By: No Limitations General Appearance: Alert, No Apparent Distress Head: Atraumatic, Normocephalic Neck: Supple, Full Range of Motion Respiratory/Chest: No Respiratory Distress, Lungs Clear, Normal Breath Sounds, No Accessory Muscle Use Cardiovascular: Regular Rate, Rhythm GI/Abdominal: Soft, Non-Tender Extremities: Normal Inspection, Normal Range of Motion, Leg Pain, Redness, Other (Left hip without deformity. There is tenderness to palpation along the inguinal ligament as well as to the left hip bone. ROM is painful in the left hip. There is bilateral lymphedema present, but the LLE is more edematous than the RLE. There is still some mild erythema to the medial left lower leg.). No: Shemran's Sign, Increased Warmth Neurological: Alert, Oriented, CN II-XII Intact, Normal Cognition Psychiatric: Normal Affect, Normal Mood Skin Exam: Warm, Dry Course - Vital Signs Last Recorded V/S: Last Vital Signs Temp 98.3 F 11/20/20 20:05 Pulse 67 11/20/20 20:05 Resp 16 11/20/20 20:05 BP 129/79 11/20/20 20:05 Pulse Ox 98 11/20/20 20:05 - Orders/Labs/Meds Orders: Active Orders 24 hr Category Date Time Status Hip Min 2V or 3V w Pelvis Lt [CR] Stat Exams 11/20/20 20:22 Taken VL Duplex Lwr Ext Veins Ltd Lt [US] Stat Exams 11/20/20 20:23 Taken Departure - Departure Time of Disposition: 21:23 Disposition: Home, Self-Care 01 Clinical Impression: Left hip pain, Strain of left hip - Discharge Information Instructions: Hip Pain, Muscle Strain Referrals: Tuan Candelaria MD [Primary Care Provider] - Forms: ED Department Discharge Additional Instructions: Your hip x-ray looks normal. The blood clot in your leg is improving. It seems most likely that the pain in your hip and groin is due to a muscle strain, which should improve over the next 1 week. Continue your xarelto as prescribed. Sepsis Event Note (ED) - Evaluation Sepsis Screening Result: No Definite Risk - Focused Exam Vital Signs: Vital Signs Temp Pulse Resp BP Pulse Ox 11/20/20 20:05 98.3 F 67 16 129/79 98 11/20/20 19:47 98.3 F 67 16 129/79 98 - Problem List Review Problem List Initiated/Reviewed/Updated: Yes - My Orders Last 24 Hours: My Active Orders 11/20/20 20:22 Hip Min 2V or 3V w Pelvis Lt [CR] Stat 11/20/20 20:23 VL Duplex Lwr Ext Veins Ltd Lt [US] Stat - Assessment/Plan Last 24 Hours: My Active Orders 11/20/20 20:22 Hip Min 2V or 3V w Pelvis Lt [CR] Stat 11/20/20 20:23 VL Duplex Lwr Ext Veins Ltd Lt [US] Stat Assessment:: This is a 70 year old female presenting with left hip pain. Differential diagnosis includes DVT, muscle strain, fracture, bursitis, among others. Ultrasound of the LLE showed improving DVT; there is no evidence of progression or more proximal DVT. X-ray did not reveal any evidence of fracture on my review of the images, though final radiology report was pending. I suspect that her pain is related to muscle strain given onset with getting out of the chair and pain worse with movement. At this time she is appropriate for discharge home with close follow up with PCP. She was instructed to return to the ED for any new or worsening symptoms. She should continue xarelto as previously prescribed.
--- NOTE | 2020-11-21 09:08 | CR ---
Hip Min 2V or 3V w Pelvis Lt CLINICAL HISTORY: Hip pain FINDINGS: There is moderate periarticular spurring at the left femoral head. Configuration suggests moderate to femoral acetabular impingement. No fracture or dislocation is seen. Impression: Moderate osteoarthritic changes in both hips left greater than right Periarticular spurring in the left hip likely results in femoral acetabular impingement No fracture seen
--- NOTE | 2020-11-21 09:11 | US ---
VL Duplex Lwr Ext Veins Ltd Lt INDICATION: hx of DVT, worsening pain moving toward groin FINDINGS: Ultrasound examination of the lower extremity using Doppler and compressive technique demonstrates incomplete compressibility of the distal aspect of the left femoral vein and popliteal vein. There is flow. Thrombus is diminished since prior study of 11/08/2020 IMPRESSION: Nonocclusive DVT in the left distal femoral and popliteal vein with improvement since prior study.
== END 2020-11-20 21:40 | disposition home or self-care (01) ==
LOC: JP.ED 19:22
DX: S76.012A Strain of muscle, fascia and tendon of left hip, initial encounter (principal); E03.9 Hypothyroidism, unspecified; E66.9 Obesity, unspecified; R60.0 Localized edema; Z68.30 Body mass index [BMI] 30.0-30.9, adult; Z91.048 Other nonmedicinal substance allergy status; Z88.8 Allergy status to other drugs, medicaments and biological substances; Z79.82 Long term (current) use of aspirin; Z79.01 Long term (current) use of anticoagulants; Z79.899 Other long term (current) drug therapy; X50.0XXA Overexertion from strenuous movement or load, initial encounter
CPT/HCPCS: 73502-26-LT; 73502-LT; 93971-26-LT; 93971-LT; 99284-25

== ENCOUNTER 2021-04-11 05:19 | Inpatient (IN) | payer MEDICARE, BC ==
[2021-04-11] MEDS ORDERED: Lactated Ringers 1,000 ML IV SCH (06:00)
[2021-04-11] MEDS: Nozin Nasal Sanitizer NASBOTH SCH ×3 (06:04→21:06)
[2021-04-11] MEDS ORDERED: Povidone-Iodine 10% Soln 118.25 ML Bottle ONE (06:38)
[2021-04-11] MEDS ORDERED: ceFAZolin 2 GM in Premix Bag 1 BAG IV ONE (07:00)
[2021-04-11] MEDS ORDERED: Propofol 200 MG/20 ML SDV ONE (07:22)
[2021-04-11] MEDS ORDERED: Rocuronium 50 MG/5 ML Vial ONE (07:22)
[2021-04-11] MEDS ORDERED: Ondansetron 4 MG/2 ML SDV ONE (07:22)
[2021-04-11] MEDS ORDERED: Neostigmine Methylsulfate 1 MG/ML 5 ML Syringe ONE (07:22)
[2021-04-11] MEDS ORDERED: Glycopyrrolate 0.2 MG/ML 5 ML MDV ONE (07:22)
[2021-04-11] MEDS ORDERED: Succinylcholine 200 MG/10 ML MDV ONE (07:22)
[2021-04-11] MEDS ORDERED: Dexamethasone 4 MG/ML SDV ONE (07:22)
[2021-04-11] MEDS ORDERED: fentaNYL 250 MCG/5 ML SDV ONE (07:22)
[2021-04-11] MEDS ORDERED: Ondansetron 4 MG/2 ML SDV IVPUSH PRN (09:45)
[2021-04-11] MEDS ORDERED: Sodium Chloride 0.9% 1,000 ML IV SCH (09:45)
[2021-04-11] MEDS ORDERED: Ondansetron 4 MG Tab.DIS PO PRN (09:45)
[2021-04-11] MEDS ORDERED: Prochlorperazine 10 MG Tab PO PRN (09:53)
[2021-04-11] MEDS ORDERED: Cyclobenzaprine 10 MG Tab PO PRN (09:53)
[2021-04-11] MEDS ORDERED: HYDROmorphone 0.5 MG/0.5 ML Syringe IVPUSH PRN (09:57)
--- NOTE | 2021-04-11 11:06 | CR ---
Shoulder 1V Rt CLINICAL HISTORY: Postop prosthesis FINDINGS: Patient is status post recent reverse shoulder arthroplasty. Components appear well seated. There is some intra-articular and subcutaneous air.
[2021-04-11] MEDS: Acetaminophen 325 MG Tab PO SCH ×3 (11:11→21:06)
--- NOTE | 2021-04-11 12:39 | OR ---
DATE OF PROCEDURE: 04/11/2021 SURGEON: Geoffrey Espinosa MD PREOPERATIVE DIAGNOSIS: Rotator cuff arthropathy, right shoulder. POSTOPERATIVE DIAGNOSIS: Rotator cuff arthropathy, right shoulder. PROCEDURE PERFORMED: Reverse total shoulder arthroplasty, right shoulder, using Codie trabecular metal implants with a size 14 stem, 36 mm Glenosphere, and a +0 polyethylene insert. TEMPORARY OFFICE ASSISTANT: PATRICIO Copeland ANESTHESIA: General with scalene block. INDICATIONS: Sofía is a pleasant 70-year-old female with a prior history of rotator cuff repair. Cuff repair has failed, and she has gone on to significant osteoarthritis of the glenohumeral joint as well as superior migration of the humeral head and resorption of significant portion of the greater tuberosity. She is extremely limited in her active range of motion and pain with active and passive motion. She now presents for reverse total shoulder arthroplasty. Risks, benefits, and potential complications of the procedure were discussed. DESCRIPTION OF PROCEDURE: After adequate anesthesia was obtained, the patient was placed in a modified beachchair position. Her right shoulder and arm were prepped and draped in the sterile fashion. An anterior incision was made and carried down through the subcutaneous tissues. Hemostasis was obtained with electrocautery. The cephalic vein was identified, and the deltopectoral interval was developed. A portion of the deltoid was adhered to the proximal humerus, and adhesions were released. A self-retaining retractor was placed beneath the conjoined tendon and the deltoid. The cephalic vein was retracted laterally with the deltoid. The subscapularis was intact, and this was divided off the lesser tuberosity and allowed to retract medially. Once this was released, this exposed the humeral head which was completely devoid of rotator cuff attachment superiorly. Significant deformity noted of the greater tuberosity and degenerative changes of the glenohumeral joint. A rongeur was used to remove several of the suture anchors from the previous cuff repair. The starting point for the humeral awl was made, and an awl was placed down the intramedullary canal by hand. This was reamed sequentially up to size 14 with the last reamer left in place. The cutting jig was secured to the reamer and pinned in position. The Reamer was removed, and the humeral head was cut. Metaphyseal reamers were then utilized. A trial stem was placed with excellent fit. Attention was turned to the glenoid. Retractors were placed about the glenoid, and the glenoid labrum was excised. The center of the glenoid was marked, and the glenoid drill guide was placed at the inferior margin of the glenoid, and a guide pin was drilled. This aligned in the center of the glenoid on the AP axis and slightly inferior to center in the superior-inferior axis. A drill was placed over this, making a central hole for the glenoid reamer. The reamer was placed over the pin, and the glenoid was reamed by hand, removing any remaining articular cartilage and planing it smooth. The pin was removed. A larger reamer was placed for the base plate peg. Retractors were repositioned, and the base plate was tapped into position flush against the glenoid. Additional fixation was obtained with 2 screws which both had excellent purchase. Locking caps were placed. The base plate was irrigated. Retractors were repositioned, and the Glenosphere was then tapped into position and confirmed to be well-seated. Attention was returned to the humerus where a trial reduction was made with a 0 polyethylene which had excellent stability. Trials were removed. A 14 stem was tapped into position, again with excellent fit and fill. This was trialed once again with a +0 which was very stable. The trial was removed. The top of the prosthesis was irrigated and dried, and the final polyethylene was tapped into position. This was reduced and again had excellent stability. The wound was irrigated with pulse lavage followed by dilute Betadine solution which was left in place for approximately 2.5 minutes. This was irrigated once again with pulse lavage. The subscapularis could actually be repaired with minimal tension and was repaired back to the tuberosity with #2 Ethibond in an interrupted fashion. This allowed external rotation easily to 35 degrees with no tension. A drain was placed, brought out through a separate stab incision, and placed beneath the deltoid. The deltopectoral interval was loosely closed with 0 Vicryl. The skin was closed with 2-0 Vicryl and a running 3-0 Monocryl. Steri-Strips were applied. Sterile dressing was then placed. The patient tolerated the procedure very well. There were no complications. She was taken from the operating room in stable condition. Geoffrey Espinosa MD /[id number] MTDD
[2021-04-11] MEDS ORDERED: ceFAZolin 1 GM in Sodium Chloride 0.9% 50 ML IV SCH (14:00)
[2021-04-11] MEDS: ceFAZolin 1 GM in Premix Bag 1 BAG IV SCH ×2 (15:40→23:21)
[2021-04-11] MEDS ORDERED: Calcium Carbonate 500 MG Tab.Chew PO PRN (19:16)
[2021-04-11] MEDS: Celecoxib 200 MG Cap PO SCH (21:06)
[2021-04-11] MEDS: Ferrous Sulfate 325 MG Tab PO SCH (21:06)
[2021-04-11] MEDS: Docusate Sodium 100 MG Cap PO SCH (21:06)
[2021-04-11] MEDS: traMADol 50 MG Tab PO PRN (21:11)
[2021-04-12] MEDS: Acetaminophen 325 MG Tab PO SCH ×4 (03:55→21:02)
[2021-04-12] MEDS: traMADol 50 MG Tab PO PRN (04:30)
[2021-04-12] MEDS: oxyCODONE 5 MG Tab PO PRN ×2 (07:31→16:19)
[2021-04-12] MEDS: Potassium Chloride 20 MEQ Tab.ER PO SCH (08:26)
[2021-04-12] MEDS: Ferrous Sulfate 325 MG Tab PO SCH ×2 (08:27→20:48)
[2021-04-12] MEDS: Cyanocobalamin (Vitamin B12) 1,000 MCG Tab PO SCH (08:27)
[2021-04-12] MEDS: Docusate Sodium 100 MG Cap PO SCH ×2 (08:27→20:48)
[2021-04-12] MEDS: Nozin Nasal Sanitizer NASBOTH SCH ×2 (08:27→20:59)
[2021-04-12] MEDS: Enoxaparin 30 MG/0.3 ML Syringe SUBCUT SCH (08:27)
[2021-04-12] MEDS: Citalopram 20 MG Tab PO SCH (08:27)
[2021-04-12] MEDS: Celecoxib 200 MG Cap PO SCH ×2 (08:27→20:48)
[2021-04-12] MEDS ORDERED: Levothyroxine 88 MCG Tab PO SCH (09:00)
[2021-04-12] MEDS ORDERED: Non-Formulary Medication 1 Each (Potassium Chloride [Potassium Chloride] 20 MEQ Tablet.Er) PO SCH (09:00)
[2021-04-12] MEDS ORDERED: CITALOPRAM 40 MG PO SCH (09:00)
[2021-04-12] MEDS ORDERED: CYANOCOBALAMIN 2500 MCG PO SCH (09:00)
--- NOTE | 2021-04-12 13:09 | PCM.SURGPN ---
- General Info Date of Service: 04/12/21 Date of Surgery/Procedure: 04/11/21 POD#: 1 Post-Op Diagnosis: right shoulder osteoarthritis, failure of previous RCR Admission Diagnosis/Problem: Shoulder joint pain Functional Status: Reports: Pain Controlled, Ambulating, Urinating - Review of Systems General: Denies: Fever, Malaise, Chills Pulmonary: Denies: Shortness of Breath Cardiovascular: Reports: Lightheadedness. Denies: Chest Pain Musculoskeletal: Reports: Shoulder Pain (right ) Skin: Reports: Bruising - Patient Data Vitals - Most Recent: Last Vital Signs Temp 97.9 F 04/12/21 11:40 Pulse 66 04/12/21 11:40 Resp 18 04/12/21 11:40 BP 83/57 L 04/12/21 11:40 Pulse Ox 95 04/12/21 11:40 Weight - Most Recent: 177 lb 4.8 oz I&O - Last 24 Hours: Intake & Output 04/11/21 04/12/21 04/12/21 22:59 06:59 14:59 Intake Total 2133 550 800 Output Total 445 900 Balance 2133 105 -100 Lab Results Last 24 Hrs: Laboratory Results - last 24 hr 04/12/21 Range/Units 04:52 WBC 7.0 (4.5-11.0) K/uL RBC 3.04 L (3.30-5.50) M/uL Hgb 9.4 L (12.0-15.0) g/dL Hct 29.6 L (36.0-48.0) % MCV 97 (80-98) fL MCH 31 (27-31) pg MCHC 32 (32-36) % Plt Count 255 (150-400) K/uL Med Orders - Current: Current Medications Acetaminophen (Acetaminophen 325 Mg Tab) 650 mg PO Q6HR [facility] Last Admin: 04/12/21 10:23 Dose: 650 mg Documented by: Bandage/Support Products (Nozin Nasal Review Trainer) 1 applic NASBOTH BID CLEMENTE Stop: 04/18/21 21:01 Last Admin: 04/12/21 08:27 Dose: 1 applic Documented by: Calcium Carbonate/Glycine (Calcium Carbonate 500 Mg Tab.Chew) 1,000 mg PO Q2H PRN PRN Reason: Indigestion Last Admin: 04/11/21 19:30 Dose: 1,000 mg Documented by: Celecoxib (Celecoxib 200 Mg Cap) 200 mg PO BID [facility] Last Admin: 04/12/21 08:27 Dose: 200 mg Documented by: Citalopram Hydrobromide (Citalopram 20 Mg Tab) 40 mg PO DAILY [facility] Last Admin: 04/12/21 08:27 Dose: 40 mg Documented by: Cyanocobalamin (Cyanocobalamin (Vitamin B12) 1,000 Mcg Tab) 2,500 mcg PO DAILY [facility] Last Admin: 04/12/21 08:27 Dose: 2,500 mcg Documented by: Cyclobenzaprine HCl (Cyclobenzaprine 10 Mg Tab) 10 mg PO Q6HR PRN PRN Reason: Spasms Docusate Sodium (Docusate Sodium 100 Mg Cap) 100 mg PO BID [facility] Last Admin: 04/12/21 08:27 Dose: 100 mg Documented by: Enoxaparin Sodium (Enoxaparin 30 Mg/0.3 Ml Syringe) 30 mg SUBCUT DAILY [facility] Last Admin: 04/12/21 08:27 Dose: 30 mg Documented by: Ferrous Sulfate (Ferrous Sulfate 325 Mg Tab) 325 mg PO BID [facility] Last Admin: 04/12/21 08:27 Dose: 325 mg Documented by: Heparin Sodium (Porcine) (Heparin Sodium 100 Units/Ml 5 Ml Syringe) 500 units FLUSH ASDIRECTED PRN PRN Reason: Other Last Admin: 04/12/21 00:57 Dose: 500 units Documented by: Hydromorphone HCl (Hydromorphone 0.5 Mg/0.5 Ml Syringe) 0.5 mg IVPUSH Q2H PRN PRN Reason: Breakthrough Pain Levothyroxine Sodium 112 mcg/ (Levothyroxine Sodium 25 mcg) 137 mcg PO ACBREAKFAST [facility] Last Admin: 04/12/21 07:33 Dose: 137 mcg Documented by: Ondansetron HCl (Ondansetron 4 Mg Tab.Dis) 4 mg PO Q6H PRN PRN Reason: Nausea/Vomiting Ondansetron HCl (Ondansetron 4 Mg/2 Ml Sdv) 4 mg IVPUSH Q6H PRN PRN Reason: Nausea/Vomiting Oxycodone HCl (Oxycodone 5 Mg Tab) 5 - 10 mg PO Q4H PRN PRN Reason: Pain Last Admin: 04/12/21 07:31 Dose: 5 mg Documented by: Potassium Chloride (Potassium Chloride 20 Meq Tab.Er) 20 meq PO DAILY [facility] Last Admin: 04/12/21 08:26 Dose: 20 meq Documented by: Prochlorperazine Maleate (Prochlorperazine 10 Mg Tab) 10 mg PO Q6HR PRN PRN Reason: Nausea Tramadol HCl (Tramadol 50 Mg Tab) 50 mg PO Q4H PRN PRN Reason: Pain (mild 1-3) Last Admin: 04/12/21 04:30 Dose: 50 mg Documented by: Discontinued Medications Bandage/Support Products (Nozin Nasal Review Trainer) 1 applic NASBOTH BID [facility] Last Admin: 04/11/21 10:51 Dose: Not Given Documented by: Dexamethasone (Dexamethasone 4 Mg/Ml Sdv) Confirm Administered Dose 4 mg .ROUTE .STK-MED ONE Stop: 04/11/21 07:23 Fentanyl (Fentanyl 250 Mcg/5 Ml Sdv) Confirm Administered Dose 250 mcg .ROUTE .STK-MED ONE Stop: 04/11/21 07:23 Glycopyrrolate (Glycopyrrolate 0.2 Mg/Ml 5 Ml Mdv) Confirm Administered Dose 1 mg .ROUTE .STK-MED ONE Stop: 04/11/21 07:23 Cefazolin Sodium/Dextrose 2 gm (/ Premix) 50 mls @ 100 mls/hr IV ONETIME ONE Stop: 04/11/21 07:29 Last Admin: 04/11/21 07:35 Dose: 100 mls/hr Documented by: Lactated Ringer's (Ringers, Lactated) 1,000 mls @ 75 mls/hr IV ASDIRECTED [facility] Last Admin: 04/11/21 06:03 Dose: 75 mls/hr Documented by: Sodium Chloride (Normal Saline) 1,000 mls @ 125 mls/hr IV ASDIRECTED [facility] Last Admin: 04/11/21 10:40 Dose: 125 mls/hr Documented by: Cefazolin Sodium/Dextrose 1 gm (/ Premix) 50 mls @ 100 mls/hr IV Q8H [facility] Stop: 04/12/21 00:29 Last Admin: 04/11/21 23:21 Dose: 100 mls/hr Documented by: Neostigmine Methylsulfate (Neostigmine Methylsulfate 1 Mg/Ml 5 Ml Syringe) Confirm Administered Dose 5 mg .ROUTE .STK-MED ONE Stop: 04/11/21 07:23 Ondansetron HCl (Ondansetron 4 Mg/2 Ml Sdv) Confirm Administered Dose 4 mg .ROUTE .STK-MED ONE Stop: 04/11/21 07:23 Povidone Iodine (Povidone-Iodine 10% Soln 118.25 Ml Bottle) Confirm Administered Dose 1 ml .ROUTE .STK-MED ONE Stop: 04/11/21 06:39 Propofol (Propofol 200 Mg/20 Ml Sdv) Confirm Administered Dose 200 mg .ROUTE .STK-MED ONE Stop: 04/11/21 07:23 Rocuronium [place] (Rocuronium 50 Mg/5 Ml Vial) Confirm Administered Dose 50 mg .ROUTE .STK-MED ONE Stop: 04/11/21 07:23 Succinylcholine Chloride (Succinylcholine 200 Mg/10 Ml Mdv) Confirm Administered Dose 200 mg .ROUTE .STK-MED ONE Stop: 04/11/21 07:23 - Exam Wound/Incisions: Healing Well, Dressing Dry and Intact, Drainage (at R shoulder LES drain ) Quality Assessment: DVT Prophylaxis General: Alert, Oriented, Cooperative, No Acute Distress Extremities: Normal Capillary Refill, Limited Range of Motion (R shoulder ), Increased Warmth (R shoulder ) Skin: Dry, Intact, Ecchymosis Neurological: No New Focal Deficit Psy/Mental Status: Alert, Normal Affect Sepsis Event Note - Evaluation Sepsis Screening Result: No Definite Risk - Focused Exam Vital Signs: Vital Signs Temp Pulse Resp BP Pulse Ox 04/12/21 11:40 97.9 F 66 18 83/57 L 95 04/12/21 07:30 97.3 F 69 18 100/62 91 L 04/12/21 03:54 97.9 F 75 16 99/52 L 93 L - Problem List & Annotations (1) History of reverse total replacement of right shoulder joint SNOMED Code(s): 53779845951777977 Code(s): Z98.890 - OTHER SPECIFIED POSTPROCEDURAL STATES Status: Acute Current Visit: Yes (2) Postoperative anemia SNOMED Code(s): 699116213, 480050600 Code(s): D64.9 - ANEMIA, UNSPECIFIED Status: Acute Current Visit: Yes (3) Postoperative hypotension SNOMED Code(s): 77634109846121757 Code(s): I95.81 - POSTPROCEDURAL HYPOTENSION Status: Acute Current Visit: Yes - Problem List Review Problem List Initiated/Reviewed/Updated: Yes - My Orders Last 24 Hours: Active Orders 24 hr Category Date Time Status Regular Diet [DIET] Diet 04/11/21 Dinner Active Calcium Carbonate [Tums] Med 04/11/21 19:16 Active 1,000 mg PO Q2H PRN Celecoxib [CeleBREX] Med 04/11/21 21:00 Active 200 mg PO BID Citalopram [Celexa] Med 04/12/21 09:00 Active 40 mg PO DAILY Cyanocobalamin (Vitamin B12) [Vitamin B12] Med 04/12/21 09:00 Active 2,500 mcg PO DAILY Docusate Sodium [Colace] Med 04/11/21 21:00 Active 100 mg PO BID Enoxaparin [Lovenox] Med 04/12/21 09:00 Active 30 mg SUBCUT DAILY Ferrous Sulfate Med 04/11/21 21:00 Active 325 mg PO BID Heparin Sodium [Heparin Lock Flush 100 Units/ML] Med 04/11/21 17:17 Active 500 units FLUSH ASDIRECTED PRN Levothyroxine Med 04/12/21 07:30 Active 137 mcg PO ACBREAKFAST Nozin [ Nasal Review Trainer] Med 04/11/21 21:00 Active 1 applic NASBOTH BID Potassium Chloride [Klor-Con M20] Med 04/12/21 09:00 Active 20 meq PO DAILY Convert IV to Saline Lock [OM.PC] Routine Oth 04/11/21 17:09 Ordered Medication Orders Acetaminophen (Acetaminophen 325 Mg Tab) 650 mg PO Q6HR [facility] Last Admin: 04/12/21 10:23 Dose: 650 mg Documented by: Admin: 04/12/21 03:55 Dose: 650 mg Documented by: Admin: 04/11/21 21:06 Dose: 650 mg Documented by: Admin: 04/11/21 15:40 Dose: 650 mg Documented by: Admin: 04/11/21 11:11 Dose: 650 mg Documented by: GISELL Bandage/Support Products (Nozin Nasal Review Trainer) 1 applic NASBOTH BID CLEMENTE Stop: 04/18/21 21:01 Last Admin: 04/12/21 08:27 Dose: 1 applic Documented by: Admin: 04/11/21 21:06 Dose: 1 applic Documented by: JAS Calcium Carbonate/Glycine (Calcium Carbonate 500 Mg Tab.Chew) 1,000 mg PO Q2H PRN PRN Reason: Indigestion Last Admin: 04/11/21 19:30 Dose: 1,000 mg Documented by: JAS Celecoxib (Celecoxib 200 Mg Cap) 200 mg PO BID [facility] Last Admin: 04/12/21 08:27 Dose: 200 mg Documented by: Admin: 04/11/21 21:06 Dose: 200 mg Documented by: JAS Citalopram Hydrobromide (Citalopram 20 Mg Tab) 40 mg PO DAILY [facility] Last Admin: 04/12/21 08:27 Dose: 40 mg Documented by: PATSY Cyanocobalamin (Cyanocobalamin (Vitamin B12) 1,000 Mcg Tab) 2,500 mcg PO DAILY [facility] Last Admin: 04/12/21 08:27 Dose: 2,500 mcg Documented by: PATSY Cyclobenzaprine HCl (Cyclobenzaprine 10 Mg Tab) 10 mg PO Q6HR PRN PRN Reason: Spasms Docusate Sodium (Docusate Sodium 100 Mg Cap) 100 mg PO BID [facility] Last Admin: 04/12/21 08:27 Dose: 100 mg Documented by: Admin: 04/11/21 21:06 Dose: 100 mg Documented by: JAS Enoxaparin Sodium (Enoxaparin 30 Mg/0.3 Ml Syringe) 30 mg SUBCUT DAILY [facility] Last Admin: 04/12/21 08:27 Dose: 30 mg Documented by: PATSY Ferrous Sulfate (Ferrous Sulfate 325 Mg Tab) 325 mg PO BID [facility] Last Admin: 04/12/21 08:27 Dose: 325 mg Documented by: Admin: 04/11/21 21:06 Dose: 325 mg Documented by: JAS Heparin Sodium (Porcine) (Heparin Sodium 100 Units/Ml 5 Ml Syringe) 500 units FLUSH ASDIRECTED PRN PRN Reason: Other Last Admin: 04/12/21 00:57 Dose: 500 units Documented by: Admin: 04/11/21 18:18 Dose: 500 units Documented by: GISELL Hydromorphone HCl (Hydromorphone 0.5 Mg/0.5 Ml Syringe) 0.5 mg IVPUSH Q2H PRN PRN Reason: Breakthrough Pain Levothyroxine Sodium 112 mcg/ (Levothyroxine Sodium 25 mcg) 137 mcg PO ACBREAKFAST [facility] Last Admin: 04/12/21 07:33 Dose: 137 mcg Documented by: PATSY Ondansetron HCl (Ondansetron 4 Mg Tab.Dis) 4 mg PO Q6H PRN PRN Reason: Nausea/Vomiting Ondansetron HCl (Ondansetron 4 Mg/2 Ml Sdv) 4 mg IVPUSH Q6H PRN PRN Reason: Nausea/Vomiting Oxycodone HCl (Oxycodone 5 Mg Tab) 5 - 10 mg PO Q4H PRN PRN Reason: Pain Last Admin: 04/12/21 07:31 Dose: 5 mg Documented by: PATSY Potassium Chloride (Potassium Chloride 20 Meq Tab.Er) 20 meq PO DAILY [facility] Last Admin: 04/12/21 08:26 Dose: 20 meq Documented by: PATSY Prochlorperazine Maleate (Prochlorperazine 10 Mg Tab) 10 mg PO Q6HR PRN PRN Reason: Nausea Tramadol HCl (Tramadol 50 Mg Tab) 50 mg PO Q4H PRN PRN Reason: Pain (mild 1-3) Last Admin: 04/12/21 04:30 Dose: 50 mg Documented by: Admin: 04/11/21 21:11 Dose: 50 mg Documented by: JAS - Assessment Assessment (Free Text/Narrative):: Patient is a pleasant 70-year-old female, status post right total reverse shoulder, postop day #1. Patient tolerated surgery well with no complications. No acute events in the postoperative period thus far. Patient has had hypotensive readings following surgery, as been fairly asymptomatic with these, although does feel lightheaded with transitions from bed to chair. Aside from blood pressures, patient has been hemodynamically stable. POD#1 HgB declined to 9.4. Patient received excellent pain control from the interscalene block in the OR. Block started to wear off in the late morning hours of postop day #1. Pain has been adequately controlled with oral medications at this time. Has tolerated regular diet well with no nausea or emesis. Patient has worked with physical therapy services on active range of motion for wrist and hand, as well as passive range of motion to the shoulder. LES drain remains in place in right shoulder at this time, with 100 mL output si nce placement. Patient requires inpatient status at this time for monitoring of postoperative anemia and for postoperative vital monitoring assessment. Plan: * Continue with every 4 hours vital monitoring. If patient remains hypotensive may consider saline bolus. * Postoperative anemia stable at this time. Will continue to monitor for any symptoms and recheck CBC if becomes symptomatic. * Continue with current pain regimen. * Continue with physical and occupational therapy services daily to progress functional mobility of right upper extremity. * Continue with Lovenox daily while inpatient, given patient's history of DVT. Anticipate transition to aspirin therapy at time of discharge. * Anticipate removal of LES drain this afternoon, pending output declines. * Anticipate discharge to home tomorrow, pending improvement in blood pressure.
[2021-04-13] MEDS: oxyCODONE 5 MG Tab PO PRN (01:15)
[2021-04-13] MEDS: Acetaminophen 325 MG Tab PO SCH ×2 (04:03→10:25)
[2021-04-13] MEDS: Nozin Nasal Sanitizer NASBOTH SCH (08:20)
[2021-04-13] MEDS: Citalopram 20 MG Tab PO SCH (08:21)
[2021-04-13] MEDS: Docusate Sodium 100 MG Cap PO SCH (08:22)
[2021-04-13] MEDS: Celecoxib 200 MG Cap PO SCH (08:22)
[2021-04-13] MEDS: Enoxaparin 30 MG/0.3 ML Syringe SUBCUT SCH (08:23)
[2021-04-13] MEDS: Ferrous Sulfate 325 MG Tab PO SCH (08:23)
[2021-04-13] MEDS: Potassium Chloride 20 MEQ Tab.ER PO SCH (08:23)
[2021-04-13] MEDS: Cyanocobalamin (Vitamin B12) 1,000 MCG Tab PO SCH (08:24)
--- NOTE | 2021-04-13 09:17 | PCM.DCSUM1 ---
Discharge Summary - Hospital Course HPI Initial Comments: Patient is a pleasant 70-year-old female, had severe right shoulder arthritis and failed previous rotator cuff repairs. Patient was very limited with her motion and strength of the right upper extremity. Elected to undergo right reverse total shoulder arthroplasty. Tolerated surgery well with no significant complications. See hospital course below for full details in the postoperative period. Diagnosis: Stroke: No Modified [place] Scale: No Symptoms at All Modified [place] Scale Score: 0 - Discharge Data Discharge Date: 04/13/21 Discharge Disposition: Home, Self-Care 01 Condition: Good - Referral to Home Health Date of Face to Face Encounter: 04/13/21 Primary Care Physician: PCP None - Discharge Diagnosis/Problem(s) (1) History of reverse total replacement of right shoulder joint SNOMED Code(s): 72729064110722251 ICD Code: Z98.890 - OTHER SPECIFIED POSTPROCEDURAL STATES Status: Acute Current Visit: Yes (2) Postoperative anemia SNOMED Code(s): 029100943, 513052123 ICD Code: D64.9 - ANEMIA, UNSPECIFIED Status: Acute Current Visit: Yes (3) Postoperative hypotension SNOMED Code(s): 01010688383908207 ICD Code: I95.81 - POSTPROCEDURAL HYPOTENSION Status: Acute Current Visit: Yes - Patient Summary/Data Operative Procedure(s) Performed: Right reverse total shoulder arthroplasty Consults: Consultations 04/11/21 09:46 PT Evaluation and Treatment [CONS] Routine Please Evaluate and Treat. PT Reason for Consult: Ambulation Discharge Disposition: Home Special Instructions: s/p R reverse TSA. May perform PROM at shoulder as tolerated. AROM to elbow and wrist. This query below is only for informational purposes and is not editable. 04/11/21 09:50 OT Evaluation and Treatment [CONS] Routine Please Evaluate and Treat. OT Reason for Consult: ADL's Special Instructions: Status post R reverse TSA/ May perform PROM to R shoulder as tolerated. AROM to wrist and elbow This query below is only for informational purposes and is not editable. Hospital Course: Patient is a pleasant 70-year-old female, status post right reverse total shoulder arthroplasty, date of surgery 04-11-21. Patient tolerated surgery well with no major complications. Patient remained hemodynamically stable in the postoperative period, with the exception of hypotensive blood pressure readings. Patient's past medical history significant for GI cancer. Has been hypotensive since being on chemotherapy treatments, with systolics ranging from 100-120s. Was having some lightheadedness with transitional positions prior to surgery. Patient endorsed lightheadedness with positional changes the evening of surgery and into morning of POD#1. Reports with taking transitions slowly, she has not been having any lightheadedness or dizziness on postop day #2. Patient's blood pressure did improve throughout the evening of postop day #1 and into the morning of postop day #2. Orthostatic BP measured POD#2 prior to discharge and was within acceptable limits. Patient did not have any dizziness or lightheadedness with taking orthostatics. Postoperative day #1 hemoglobin declined to 9.4. Patient did have some lightheadedness on POD#1, otherwise asymptomatic; denied vision changes, dyspnea on exertion, nor dizziness. Patient had excellent pain relief from the interscalene block until late morning of postop day #1. Pain was then controlled thereafter with oral medications. Patient tolerated pain regimen well without nausea or emesis. Tolerated regular diet well. Patient worked with physical therapy during hospitalization. Worked on active range of motion of the right wrist and hand, and passive range of motion to neutral positions at the shoulder. LES drain was removed the evening of postop day #1, as output declined throughout the day. Dressing change performed on postop day #1 and postop day #2. - Patient Instructions Diet: Usual Diet as Tolerated Activity: Apply Ice, Rest and Relax Today Driving: Do Not Drive Showering/Bathing: May Shower Wound/Incision Care: Keep Operative Site/Wound Site Clean and Dry Notify Provider of: Fever, Increased Pain, Swelling and Redness, Drainage - Discharge Plan *PRESCRIPTION DRUG MONITORING PROGRAM REVIEWED*: Yes *COPY OF PRESCRIPTION DRUG MONITORING REPORT IN PATIENT [place]: Not Applicable Prescriptions/Med Rec: Celecoxib [CeleBREX] 200 mg PO BID #14 cap oxyCODONE 5 mg PO Q6HR PRN #20 tab PRN Reason: Pain (Severe 7-10) Home Medications: Home Meds Aspirin 325 mg PO DAILY 05/07/13 [History] Calcium Citrate/Vitamin D3 [Calcium Citrate + Caplet] 1,900 mg PO BID 05/07/13 [History] Citalopram [Citalopram HBr] 40 mg PO DAILY 05/07/13 [History] Levothyroxine [Synthroid] 137 mcg PO DAILY 05/07/13 [History] Acetaminophen [Tylenol Arthritis] 2 tab PO Q8H 11/17/17 [History] Potassium Chloride 20 meq PO DAILY 05/15/20 [History] Vitamin B Complex [B Complex] 1 each PO DAILY 05/15/20 [History] Celecoxib [CeleBREX] 200 mg PO BID 11/20/20 [History] Ferrous Sulfate 325 mg PO BID 11/20/20 [History] Cholecalciferol (Vitamin D3) [Vitamin D] 5,000 unit PO DAILY 02/28/21 [History] Cyclobenzaprine HCl 10 mg PO Q6HR PRN 02/28/21 [History] Multivitamin 1 each PO DAILY 02/28/21 [History] Prochlorperazine Maleate [Compazine] 10 mg PO Q6HR PRN 02/28/21 [History] Sulfamethoxazole/Trimethoprim [Bactrim Ds Tablet] 1 each PO ASDIRECTED 02/28/21 [History] Ondansetron [Zofran] 8 mg PO Q8H PRN 03/05/21 [History] Alendronate Sodium [Fosamax] 70 mg PO Q7D 04/06/21 [History] .B12 2,500 mcg PO DAILY 04/11/21 [History] .Renavive 1 tab PO BID 04/11/21 [History] Antiox #11/OM3/DHA/EPA/Lut/Baldemar [50+ Adult Eye Health Softgel] 1 each PO BID 04/11/21 [History] Biotin 5 mg PO BID 04/11/21 [History] Cartilage/Collagen/Bor/Hyalur [Joint Health Tablet] 1 each PO DAILY 04/11/21 [History] Vitamin E 400 unit PO BID 04/11/21 [History] Celecoxib [CeleBREX] 200 mg PO BID #14 cap 04/13/21 [Rx] oxyCODONE 5 mg PO Q6HR PRN #20 tab 04/13/21 [Rx] Oxygen Therapy Mode: Room Air Patient Handouts: Fall Prevention in the Home, Adult, [id number], Reverse Total Shoulder Replacement, Care After, Oxycodone tablets or capsules, Celecoxib Oral Capsules, Preventing Problems After Surgery, How to Prevent Constipation After Surgery - Discharge Summary/Plan Comment DC Time >30 min.: No Total # of Minutes for Discharge Time: 25 Discharge Summary/Plan Comment: Blood Pressure: -Instructed to obtain blood pressure cuff from [facility] when she picks up her medications. Monitor BP 3x/day and record readings over the weekend. If top number drops below 100, should arrange follow up with PCP -Instructed if any hypotensive symptoms develop, like becoming lightheaded, dizzy, or near syncopal, should go to ER -Continue with iron supplements as scheduled Pain control: -Scheduled 650 mg Tylenol q6 hrs -Scheduled 200 mg Celebrex BID -5 mg Oxycodone q6 hrs prn for pain -Prescriptions were e-prescribed to [facility] per family request DVT/VTE prophylaxis: -325 mg Aspirin BID -Reviewed DVT/VTE signs and return parameters Dressing/sling -May remove dressing from incision, leave steristrips on. Okay to shower, let water run over the top of steristrips. Monitor incision daily for any surrounding redness, warmth, or drainage- contact clinic with any incision concerns -May wear sling with activity as reminder to limit reaching/lifting. Okay to take off at restful periods. No heavy lifting >1-2 lbs with right arm. AROM encouraged to elbow and wrist, PROM to shoulder neutral positions. Will initiate PT at orthopedic 2-wk follow-up Follow up with orthopedics in 2 weeks as scheduled. Encouraged to contact clinic with any concerns or questions that arise in the post-operative period. - General Info Date of Service: 04/13/21 Admission Dx/Problem (Free Text: right reverse total shoulder arthroplasty Functional Status: Reports: Pain Controlled, Tolerating Diet, Ambulating, Urina ting - Review of Systems General: Denies: Fever, Fatigue, Chills HEENT: Denies: Visual Changes Pulmonary: Denies: Shortness of Breath Cardiovascular: Denies: Chest Pain, Lightheadedness Gastrointestinal: Denies: Nausea, Vomiting Musculoskeletal: Reports: Shoulder Pain (right ) Skin: Reports: Bruising Neurological: Reports: No Symptoms - Patient Data Vitals - Most Recent: Last Vital Signs Temp 97.7 F 04/13/21 03:39 Pulse 65 04/13/21 03:39 Resp 18 04/13/21 03:39 BP 105/56 L 04/13/21 03:39 Pulse Ox 94 L 04/13/21 03:39 Weight - Most Recent: 177 lb 4.8 oz I&O - Last 24 hours: Intake & Output 04/12/21 04/13/21 04/13/21 22:59 06:59 14:59 Intake Total 1400 600 Output Total 555 Balance 845 600 Med Orders - Current: Current Medications Acetaminophen (Acetaminophen 325 Mg Tab) 650 mg PO Q6HR [facility] Last Admin: 04/13/21 04:03 Dose: 650 mg Documented by: Bandage/Support Products (Nozin Nasal Country Printer) 1 applic NASBOTH BID [facility] Stop: 04/18/21 21:01 Last Admin: 04/13/21 08:20 Dose: 1 applic Documented by: Calcium Carbonate/Glycine (Calcium Carbonate 500 Mg Tab.Chew) 1,000 mg PO Q2H PRN PRN Reason: Indigestion Last Admin: 04/11/21 19:30 Dose: 1,000 mg Documented by: Celecoxib (Celecoxib 200 Mg Cap) 200 mg PO BID [facility] Last Admin: 04/13/21 08:22 Dose: 200 mg Documented by: Citalopram Hydrobromide (Citalopram 20 Mg Tab) 40 mg PO DAILY [facility] Last Admin: 04/13/21 08:21 Dose: 40 mg Documented by: Cyanocobalamin (Cyanocobalamin (Vitamin B12) 1,000 Mcg Tab) 2,500 mcg PO DAILY [facility] Last Admin: 04/13/21 08:24 Dose: 2,500 mcg Documented by: Cyclobenzaprine HCl (Cyclobenzaprine 10 Mg Tab) 10 mg PO Q6HR PRN PRN Reason: Spasms Docusate Sodium (Docusate Sodium 100 Mg Cap) 100 mg PO BID [facility] Last Admin: 04/13/21 08:22 Dose: 100 mg Documented by: Enoxaparin Sodium (Enoxaparin 30 Mg/0.3 Ml Syringe) 30 mg SUBCUT DAILY [facility] Last Admin: 04/13/21 08:23 Dose: 30 mg Documented by: Ferrous Sulfate (Ferrous Sulfate 325 Mg Tab) 325 mg PO BID [facility] Last Admin: 04/13/21 08:23 Dose: 325 mg Documented by: Heparin Sodium (Porcine) (Heparin Sodium 100 Units/Ml 5 Ml Syringe) 500 units FLUSH ASDIRECTED PRN PRN Reason: Other Last Admin: 04/12/21 00:57 Dose: 500 units Documented by: Hydromorphone HCl (Hydromorphone 0.5 Mg/0.5 Ml Syringe) 0.5 mg IVPUSH Q2H PRN PRN Reason: Breakthrough Pain Levothyroxine Sodium 112 mcg/ (Levothyroxine Sodium 25 mcg) 137 mcg PO ACBREAKFAST [facility] Last Admin: 04/13/21 08:20 Dose: 137 mcg Documented by: Ondansetron HCl (Ondansetron 4 Mg Tab.Dis) 4 mg PO Q6H PRN PRN Reason: Nausea/Vomiting Ondansetron HCl (Ondansetron 4 Mg/2 Ml Sdv) 4 mg IVPUSH Q6H PRN PRN Reason: Nausea/Vomiting Oxycodone HCl (Oxycodone 5 Mg Tab) 5 - 10 mg PO Q4H PRN PRN Reason: Pain Last Admin: 04/13/21 01:15 Dose: 5 mg Documented by: Potassium Chloride (Potassium Chloride 20 Meq Tab.Er) 20 meq PO DAILY [facility] Last Admin: 04/13/21 08:23 Dose: 20 meq Documented by: Prochlorperazine Maleate (Prochlorperazine 10 Mg Tab) 10 mg PO Q6HR PRN PRN Reason: Nausea Tramadol HCl (Tramadol 50 Mg Tab) 50 mg PO Q4H PRN PRN Reason: Pain (mild 1-3) Last Admin: 04/12/21 04:30 Dose: 50 mg Documented by: Discontinued Medications Bandage/Support Products (Nozin Nasal Country Printer) 1 applic NASBOTH BID [facility] Last Admin: 04/11/21 10:51 Dose: Not Given Documented by: Dexamethasone (Dexamethasone 4 Mg/Ml Sdv) Confirm Administered Dose 4 mg .ROUTE .STK-MED ONE Stop: 04/11/21 07:23 Fentanyl (Fentanyl 250 Mcg/5 Ml Sdv) Confirm Administered Dose 250 mcg .ROUTE .STK-MED ONE Stop: 04/11/21 07:23 Glycopyrrolate (Glycopyrrolate 0.2 Mg/Ml 5 Ml Mdv) Confirm Administered Dose 1 mg .ROUTE .STK-MED ONE Stop: 04/11/21 07:23 Cefazolin Sodium/Dextrose 2 gm (/ Premix) 50 mls @ 100 mls/hr IV ONETIME ONE Stop: 04/11/21 07:29 Last Admin: 04/11/21 07:35 Dose: 100 mls/hr Documented by: Lactated Ringer's (Ringers, Lactated) 1,000 mls @ 75 mls/hr IV ASDIRECTED [facility] Last Admin: 04/11/21 06:03 Dose: 75 mls/hr Documented by: Sodium Chloride (Normal Saline) 1,000 mls @ 125 mls/hr IV ASDIRECTED [facility] Last Admin: 04/11/21 10:40 Dose: 125 mls/hr Documented by: Cefazolin Sodium/Dextrose 1 gm (/ Premix) 50 mls @ 100 mls/hr IV Q8H [facility] Stop: 04/12/21 00:29 Last Admin: 04/11/21 23:21 Dose: 100 mls/hr Documented by: Neostigmine Methylsulfate (Neostigmine Methylsulfate 1 Mg/Ml 5 Ml Syringe) Confirm Administered Dose 5 mg .ROUTE .STK-MED ONE Stop: 04/11/21 07:23 Ondansetron HCl (Ondansetron 4 Mg/2 Ml Sdv) Confirm Administered Dose 4 mg .ROUTE .STK-MED ONE Stop: 04/11/21 07:23 Povidone Iodine (Povidone-Iodine 10% Soln 118.25 Ml Bottle) Confirm Administered Dose 1 ml .ROUTE .STK-MED ONE Stop: 04/11/21 06:39 Propofol (Propofol 200 Mg/20 Ml Sdv) Confirm Administered Dose 200 mg .ROUTE .STK-MED ONE Stop: 04/11/21 07:23 Rocuronium [place] (Rocuronium 50 Mg/5 Ml Vial) Confirm Administered Dose 50 mg .ROUTE .STK-MED ONE Stop: 04/11/21 07:23 Succinylcholine Chloride (Succinylcholine 200 Mg/10 Ml Mdv) Confirm Administered Dose 200 mg .ROUTE .STK-MED ONE Stop: 04/11/21 07:23 - Exam General: Reports: Alert, Oriented, Cooperative, No Acute Distress Extremities: Normal Capillary Refill, Joint Swelling (Right shoulder. Diffuse swelling of R UE ), Arm Pain (right ), Limited Range of Motion (R shoulder ), Other (radial pulse, 2+) Skin: Reports: Dry, Intact, Ecchymosis Wound/Incisions: Reports: Healing Well, Dressing Dry and Intact, No Drainage Neurological: Reports: No New Focal Deficit Psy/Mental Status: Reports: Alert, Normal Affect, Normal Mood
[2021-04-13] MEDS ORDERED: Acetaminophen 325 MG Tab ONE (10:24)
== END 2021-04-13 14:00 | disposition home or self-care (01) | DRG 483 ==
LOC: JP.SDS 05:19 → JP.MS 09:46 → JP.SDS 04-12 13:50 → JP.MS 04-12 13:53
PROVIDERS: ADMIT Specialist; ATTEND Specialist
PROC: 0RRJ00Z Replacement of Right Shoulder Joint with Reverse Ball and Socket Synthetic Substitute, Open Approach (ICD-10-PCS; principal; 2021-04-11)
DX: M19.011 Primary osteoarthritis, right shoulder (principal); I95.81 Postprocedural hypotension; D64.9 Anemia, unspecified; Z85.038 Personal history of other malignant neoplasm of large intestine; E21.3 Hyperparathyroidism, unspecified; E03.9 Hypothyroidism, unspecified; E55.9 Vitamin D deficiency, unspecified; E53.8 Deficiency of other specified B group vitamins; I83.90 Asymptomatic varicose veins of unspecified lower extremity; Z87.442 Personal history of urinary calculi; M17.0 Bilateral primary osteoarthritis of knee; M85.80 Other specified disorders of bone density and structure, unspecified site; F32.A Depression, unspecified; Z98.84 Bariatric surgery status; Z86.718 Personal history of other venous thrombosis and embolism; Z79.01 Long term (current) use of anticoagulants; Z79.899 Other long term (current) drug therapy; Z91.09 Other allergy status, other than to drugs and biological substances; D50.9 Iron deficiency anemia, unspecified
CPT/HCPCS: 73020-26-RT; 73020-RT; 97161-GP; A9270-GY; C1713; C1776; J0330; J0690; J1100; J1642; J1650; J2405; J2704; J2710; J3010; J3490; J7030; J7120

== ENCOUNTER 2021-07-06 06:14 | Day surgery (SDC) | payer MEDICARE, BC ==
[2021-07-06] MEDS ORDERED: Propofol 200 MG/20 ML SDV ONE (06:58)
[2021-07-06] MEDS ORDERED: Midazolam 1 MG/ML 2 ML SDV ONE (06:58)
[2021-07-06] MEDS ORDERED: fentaNYL 100 MCG/2 ML SDV ONE (06:58)
[2021-07-06] MEDS ORDERED: Dextrose 5%-Lactated Ringers 1,000 ML IV SCH (07:30)
== END 2021-07-06 10:59 | disposition home or self-care (01) ==
LOC: JP.SDS 06:14
PROVIDERS: ATTEND Surgery
DX: Z09 Encounter for follow-up examination after completed treatment for conditions other than malignant neoplasm (principal); K57.30 Diverticulosis of large intestine without perforation or abscess without bleeding; Z91.048 Other nonmedicinal substance allergy status; Z98.890 Other specified postprocedural states; Z92.21 Personal history of antineoplastic chemotherapy; Z85.038 Personal history of other malignant neoplasm of large intestine
CPT/HCPCS: J1642; J2250; J2704; J3010; J7121

== ENCOUNTER 2021-10-03 06:59 | Day surgery (SDC) | payer MEDICARE, BC ==
[~2021-10-03 06:59] MED LIST changes: -Lidocaine 1% with EPINEPHrine 1:100,000 50 ML MDV ONE
[2021-10-03] MEDS ORDERED: Nozin Nasal Sanitizer NASBOTH SCH (07:30)
[2021-10-03] MEDS ORDERED: fentaNYL 250 MCG/5 ML SDV ONE (07:40)
[2021-10-03] MEDS ORDERED: Succinylcholine 200 MG/10 ML MDV ONE (07:41)
[2021-10-03] MEDS ORDERED: Rocuronium 50 MG/5 ML Vial ONE (07:41)
[2021-10-03] MEDS ORDERED: Ondansetron 4 MG/2 ML SDV ONE (07:41)
[2021-10-03] MEDS ORDERED: Propofol 200 MG/20 ML SDV ONE (07:41)
[2021-10-03] MEDS ORDERED: Dexamethasone 4 MG/ML SDV ONE (07:41)
[2021-10-03] MEDS ORDERED: Glycopyrrolate 0.2 MG/ML 5 ML MDV ONE (07:41)
[2021-10-03] MEDS ORDERED: Neostigmine Methylsulfate 1 MG/ML 5 ML Syringe ONE (07:41)
[2021-10-03] MEDS ORDERED: Bupivacaine 0.5% 30 ML SDV ONE (07:45)
[2021-10-03 08:02] LABS: ESTIMATED GFR > 60 (>60)
[2021-10-03] MEDS ORDERED: Lactated Ringers 1,000 ML IV SCH (08:30)
[2021-10-03] MEDS ORDERED: ceFAZolin 2 GM in Premix Bag 1 BAG IV ONE (09:00)
[2021-10-03] MEDS ORDERED: Lidocaine 1% 2 ML ONE (10:22)
[2021-10-03] MEDS ORDERED: Ondansetron 4 MG/2 ML SDV IVPUSH PRN (12:08)
[2021-10-03] MEDS ORDERED: oxyCODONE 5 MG Tab PO PRN ×2 (12:08)
[2021-10-03] MEDS ORDERED: traMADol 50 MG Tab PO PRN (12:08)
[2021-10-03] MEDS ORDERED: HYDROmorphone 0.5 MG/0.5 ML Syringe IVPUSH PRN (12:08)
[2021-10-03] MEDS ORDERED: Cyclobenzaprine 10 MG Tab PO PRN (12:14)
[2021-10-03] MEDS ORDERED: Sodium Chloride 0.9% 1,000 ML IV SCH (12:15)
[2021-10-03] MEDS: Acetaminophen 500 MG Tab PO SCH ×2 (14:19→20:45)
[2021-10-03] MEDS ORDERED: Iopamidol 612 MG/ML 50 ML SDV IV PRN (15:31)
[2021-10-03] MEDS: ceFAZolin 1 GM in Premix Bag 1 BAG IV SCH (17:09)
[2021-10-03] MEDS: Nozin Nasal Sanitizer NASBOTH SCH (20:45)
[2021-10-03] MEDS: Vitamin B Complex Tab PO SCH (20:46)
[2021-10-03] MEDS: Docusate Sodium 100 MG Cap PO SCH (20:46)
[2021-10-03] MEDS: Ferrous Sulfate 325 MG Tab PO SCH (20:46)
[2021-10-03] MEDS: Celecoxib 200 MG Cap PO SCH (20:46)
[2021-10-03] MEDS: Calcium Carbonate/Vitamin D3 1500 MG-400 Units Tab PO SCH (20:46)
[2021-10-04] MEDS: ceFAZolin 1 GM in Premix Bag 1 BAG IV SCH ×2 (01:27→09:01)
[2021-10-04] MEDS: Acetaminophen 500 MG Tab PO SCH ×3 (01:27→14:28)
[2021-10-04] MEDS ORDERED: Levothyroxine 112 MCG Tab PO SCH (07:30)
[2021-10-04] MEDS ORDERED: Levothyroxine 25 MCG Tab PO SCH (07:30)
[2021-10-04] MEDS: Nozin Nasal Sanitizer NASBOTH SCH (08:49)
[2021-10-04] MEDS: Celecoxib 200 MG Cap PO SCH (08:50)
[2021-10-04] MEDS: Calcium Carbonate/Vitamin D3 1500 MG-400 Units Tab PO SCH (08:50)
[2021-10-04] MEDS: Docusate Sodium 100 MG Cap PO SCH (08:50)
[2021-10-04] MEDS: Vitamin B Complex Tab PO SCH (08:51)
[2021-10-04] MEDS: Ferrous Sulfate 325 MG Tab PO SCH (08:51)
[2021-10-04] MEDS ORDERED: Citalopram 20 MG Tab PO SCH (09:00)
[2021-10-04] MEDS ORDERED: Levothyroxine 88 MCG Tab PO SCH (09:00)
[2021-10-04] MEDS ORDERED: Potassium Chloride 20 MEQ Tab.ER PO SCH (09:00)
[2021-10-04] MEDS ORDERED: Aspirin 325 MG Tab.EC PO SCH (09:00)
[2021-10-04] MEDS ORDERED: Cholecalciferol (Vitamin D3) 25 MCG Tab PO SCH (09:00)
[2021-10-04] MEDS ORDERED: Cyanocobalamin (Vitamin B12) 1,000 MCG/ML SDV IM ONE (13:00)
[2021-10-09] MEDS ORDERED: Alendronate 70 MG Tab PO SCH (07:00)
== END 2021-10-04 15:42 | disposition home or self-care (01) ==
LOC: JP.SDS 06:59 → JP.MS 12:08 → JP.SDS 10-04 15:42
PROVIDERS: ATTEND Specialist
DX: T84.028A Dislocation of other internal joint prosthesis, initial encounter (principal); T84.498A Other mechanical complication of other internal orthopedic devices, implants and grafts, initial encounter; Z79.899 Other long term (current) drug therapy; Z79.82 Long term (current) use of aspirin; Z88.8 Allergy status to other drugs, medicaments and biological substances
CPT/HCPCS: 23474; 36415; 73020; 76000; 80053; 85027; 97110; 97116; 97162; 97530; 97535; A9270; C1776; J0330; J0690; J1100; J1642; J2405; J2704; J2710; J3010; J3420; J3490; J7120; Q9967

== ENCOUNTER 2021-12-04 08:28 | Day surgery (SDC) | payer MEDICARE, BC ==
[2021-12-03] MEDS: MEROPENEM 500 MG ONE ×2 (10:30)
[2021-12-03] MEDS: SODIUM CHLORIDE 0.9% ONE ×2 (10:30)
[~2021-12-04 08:28] MED LIST changes: +Bupivacaine 0.5% 30 ML SDV ONE; -Bupivacaine 0.5% 50 ML MDV ONE; +Lidocaine 1% with EPINEPHrine 1:100,000 50 ML MDV ONE
[2021-12-04] MEDS ORDERED: Propofol 200 MG/20 ML SDV ONE ×2 (09:46→12:37)
[2021-12-04] MEDS ORDERED: Midazolam 1 MG/ML 2 ML SDV ONE (09:46)
[2021-12-04] MEDS ORDERED: fentaNYL 100 MCG/2 ML SDV ONE (09:46)
[2021-12-04] MEDS ORDERED: Dextrose 5%-Lactated Ringers 1,000 ML IV SCH (10:00)
[2021-12-04] MEDS: MEROPENEM 500 MG ONE ×2 (10:30)
[2021-12-04] MEDS: SODIUM CHLORIDE 0.9% ONE ×2 (10:30)
[2021-12-04] MEDS ORDERED: ceFAZolin 2 GM in Premix Bag 1 BAG IV ONE (10:45)
[2021-12-04] MEDS ORDERED: Lidocaine 1% with EPINEPHrine 1:100,000 50 ML MDV INJECT ONE (12:30)
[2021-12-04] MEDS ORDERED: Bupivacaine 0.5% 30 ML SDV INJECT ONE (12:30)
== END 2021-12-04 14:01 | disposition home or self-care (01) ==
LOC: JP.SDS 08:28
PROVIDERS: ATTEND Surgery
DX: K64.8 Other hemorrhoids (principal); K62.3 Rectal prolapse; K22.89 Other specified disease of esophagus; K62.5 Hemorrhage of anus and rectum; K21.9 Gastro-esophageal reflux disease without esophagitis; Z45.2 Encounter for adjustment and management of vascular access device; Z98.84 Bariatric surgery status
CPT/HCPCS: 36590; 43247; 45350; J0690; J2185; J2250; J2704; J3010; J3490; J7121

== ENCOUNTER 2022-02-11 06:00 | Day surgery (SDC) | payer MEDICARE, BC ==
[2022-02-11] MEDS ORDERED: Nozin Nasal Sanitizer NASBOTH ONE (08:27)
[2022-02-11] MEDS ORDERED: Propofol 200 MG/20 ML SDV ONE (08:40)
[2022-02-11] MEDS ORDERED: Succinylcholine 200 MG/10 ML MDV ONE (08:40)
[2022-02-11] MEDS ORDERED: Dexamethasone 4 MG/ML SDV ONE (08:40)
[2022-02-11] MEDS ORDERED: fentaNYL 100 MCG/2 ML SDV ONE (08:40)
[2022-02-11] MEDS ORDERED: Rocuronium 50 MG/5 ML Vial ONE (08:40)
[2022-02-11] MEDS ORDERED: Ondansetron 4 MG/2 ML SDV ONE (08:40)
[2022-02-11] MEDS ORDERED: Glycopyrrolate 0.2 MG/ML 5 ML MDV ONE (08:40)
[2022-02-11] MEDS ORDERED: Neostigmine Methylsulfate 1 MG/ML 5 ML Syringe ONE (08:40)
[2022-02-11] MEDS ORDERED: Lactated Ringers 1,000 ML IV SCH (08:45)
[2022-02-11] MEDS ORDERED: Bupivacaine 0.5% 30 ML SDV ONE ×2 (10:41→10:43)
[2022-02-11] MEDS ORDERED: ceFAZolin 2 GM in Sodium Chloride 0.9% 50 ML IV ONE (11:00)
[2022-02-11] MEDS ORDERED: ceFAZolin 2 GM in Premix Bag 1 BAG IV ONE (11:05)
[2022-02-11] MEDS ORDERED: Lactated Ringers 1,000 ML ONE (13:14)
[2022-02-11] MEDS ORDERED: Sodium Chloride 0.9% 1,000 ML IV ONE (14:20)
[2022-02-11] MEDS ORDERED: ceFAZolin 1 GM in Premix Bag 1 BAG IV ONE (18:00)
[2022-02-11] MEDS ORDERED: Celecoxib 200 MG Cap PO ONE (20:45)
[2022-02-12] MEDS ORDERED: Sodium Chloride 0.9% 1,000 ML IV ONE ×3 (01:00→20:30)
[2022-02-12] MEDS ORDERED: ceFAZolin 1 GM in Premix Bag 1 BAG IV ONE ×2 (02:45→11:27)
[2022-02-12] MEDS ORDERED: Celecoxib 200 MG Cap PO ONE ×2 (08:01→20:30)
[2022-02-12] MEDS ORDERED: Citalopram 20 MG Tab PO ONE (08:01)
[2022-02-12] MEDS ORDERED: Potassium Chloride 20 MEQ Tab.ER PO ONE (08:10)
[2022-02-12] MEDS ORDERED: Ondansetron 4 MG/2 ML SDV IVPUSH ONE (10:58)
[2022-02-13] MEDS ORDERED: Sulfamethoxazole/Trimethoprim 800-160 MG Tab PO ONE (09:00)
[2022-02-13] MEDS ORDERED: Potassium Chloride 20 MEQ Tab.ER PO ONE (09:00)
[2022-02-13] MEDS ORDERED: Celecoxib 200 MG Cap PO ONE (09:00)
[2022-02-13] MEDS ORDERED: Citalopram 20 MG Tab PO ONE (09:00)
[2022-03-08 14:32] LABS: ESTIMATED GFR 92 mL/min (>60)
== END 2022-02-13 13:15 | disposition home or self-care (01) ==
LOC: JP.SDS 06:00
PROVIDERS: ATTEND Specialist
DX: M19.012 Primary osteoarthritis, left shoulder (principal); E21.3 Hyperparathyroidism, unspecified; F32.A Depression, unspecified; Z79.899 Other long term (current) drug therapy; Z91.048 Other nonmedicinal substance allergy status
CPT/HCPCS: 36415; 73020-26-LT; 73020-LT; 80053; 85027; 97110-GP; 97162-GP; 97530-GP; 97535-GP; A9270-GY; C1776; J0330; J0690; J1100; J2405; J2704; J2710; J3010; J3490; J7030; J7120

== ENCOUNTER 2022-04-22 06:42 | Day surgery (SDC) | payer MEDICARE, BC ==
[2022-04-22] MEDS ORDERED: Midazolam 1 MG/ML 2 ML SDV ONE (06:52)
[2022-04-22] MEDS ORDERED: Propofol 200 MG/20 ML SDV ONE (06:52)
[2022-04-22] MEDS ORDERED: fentaNYL 50 MCG/ML SDV ONE (06:52)
[2022-04-22] MEDS ORDERED: Dextrose 5%-Lactated Ringers 1,000 ML IV SCH (07:30)
== END 2022-04-22 10:30 | disposition home or self-care (01) ==
LOC: JP.SDS 06:42
PROVIDERS: ATTEND Surgery
DX: Z12.11 Encounter for screening for malignant neoplasm of colon (principal); K57.30 Diverticulosis of large intestine without perforation or abscess without bleeding; K64.8 Other hemorrhoids; Z79.899 Other long term (current) drug therapy; Z87.19 Personal history of other diseases of the digestive system; Z85.038 Personal history of other malignant neoplasm of large intestine; Z91.048 Other nonmedicinal substance allergy status
CPT/HCPCS: 45378; 45398; J2250; J2704; J3010; J7121

== ENCOUNTER 2022-09-09 05:58 | Inpatient (IN) | payer MEDICARE, BC ==
[2022-09-09] MEDS: Nozin Nasal Sanitizer NASBOTH SCH ×2 (06:20→20:03)
[2022-09-09 07:03] LABS: HEMATOCRIT 38.1 % (34.3-46.0); HEMOGLOBIN 12.8 g/dL (11.2-15.5); MEAN CORPUSCULAR HEMOGLOBIN 32.9 pg (31.6-35.5); MEAN CORPUSCULAR HGB CONC 33.6 g/dL (31.6-35.5); MEAN CORPUSCULAR VOLUME 97.9 fL (81.4-99.0); RED BLOOD CELL COUNT 3.89 M/uL (3.77-5.24); WHITE BLOOD CELL COUNT,WBC 6.2 K/uL (3.2-11.0)
[2022-09-09] MEDS ORDERED: Bupivacaine 0.5% 50 ML MDV ONE (07:11)
[2022-09-09 07:25] LABS: ALANINE AMINOTRANSFERASE,ALT 22 U/L (12-78); ALBUMIN 3.4 g/dL (3.4-5.0); ALKALINE PHOSPHATASE 64 U/L (46-116); ANION GAP 12.1 mmol/L (5.0-14.0); ASPARTATE AMNIOTRANSFERASE,AST 21 U/L (15-37); BILIRUBIN TOTAL 0.3 mg/dL (0.2-1.0); BLOOD UREA NITROGEN,BUN 19 mg/dL (7-18); CALCIUM 8.6 mg/dL (8.5-10.1); CARBON DIOXIDE,CO2 25 mmol/L (21-32); CHLORIDE,CL 106 mmol/L (100-108); CREATININE 0.6 mg/dL (0.6-1.0); EST CRCL DRUG DOSING (CG) 76.26 mL/min; ESTIMATED GFR 95 mL/min (>60); GLUCOSE RANDOM 97 mg/dL (74-106); POTASSIUM,K 4.1 mmol/L (3.6-5.2); PROTEIN TOTAL,TP 6.8 g/dL (6.4-8.2); SODIUM,NA 139 mmol/L (140-148)
[2022-09-09] MEDS ORDERED: Lactated Ringers 1,000 ML IV SCH (07:30)
[2022-09-09] MEDS ORDERED: Nozin Nasal Sanitizer NASBOTH ONE (07:30)
[2022-09-09] MEDS ORDERED: Tranexamic Acid 1,000 MG in Sodium Chloride 0.9% 50 ML IV ONE (08:15)
[2022-09-09] MEDS ORDERED: Midazolam 1 MG/ML 2 ML SDV ONE (08:29)
[2022-09-09] MEDS ORDERED: fentaNYL 100 MCG/2 ML SDV ONE (08:29)
[2022-09-09] MEDS ORDERED: Propofol 200 MG/20 ML SDV ONE ×3 (08:29→10:44)
[2022-09-09] MEDS ORDERED: ceFAZolin 2 GM in Premix Bag 1 BAG IV ONE (08:30)
[2022-09-09] MEDS ORDERED: Docusate Sodium 100 MG Cap PO PRN (08:56)
[2022-09-09] MEDS ORDERED: ceFAZolin 1 GM in Sodium Chloride 0.9% 50 ML IV SCH (09:00)
[2022-09-09] MEDS ORDERED: Cyclobenzaprine 10 MG Tab PO PRN (09:03)
[2022-09-09] MEDS ORDERED: Lactated Ringers 1,000 ML ONE (09:41)
[2022-09-09] MEDS: oxyCODONE 5 MG Tab PO PRN ×2 (15:25→23:23)
[2022-09-09] MEDS: Acetaminophen 325 MG Tab PO SCH ×2 (15:26→21:05)
[2022-09-09] MEDS: ceFAZolin 1 GM in Premix Bag 1 BAG IV SCH (17:12)
[2022-09-09] MEDS: Sodium Chloride 0.9% 1,000 ML IV SCH (17:15)
[2022-09-09] MEDS ORDERED: Sodium Chloride 0.9% 1,000 ML IV ONE (18:14)
[2022-09-09] MEDS ORDERED: Ondansetron 4 MG/2 ML SDV IVPUSH PRN (18:16)
[2022-09-09] MEDS: Calcium Carbonate/Vitamin D3 1500 MG-400 Units Tab PO SCH (20:04)
[2022-09-10] MEDS: ceFAZolin 1 GM in Premix Bag 1 BAG IV SCH ×2 (02:11→09:21)
[2022-09-10] MEDS: Sodium Chloride 0.9% 1,000 ML IV SCH (03:50)
[2022-09-10] MEDS: oxyCODONE 5 MG Tab PO PRN ×4 (03:53→22:29)
[2022-09-10] MEDS: Acetaminophen 325 MG Tab PO SCH ×4 (03:54→22:28)
[2022-09-10] MEDS ORDERED: Alendronate 70 MG Tab PO SCH (07:30)
[2022-09-10] MEDS ORDERED: CITALOPRAM 40 MG PO SCH (09:00)
[2022-09-10] MEDS ORDERED: Non-Formulary Medication 1 Each (Potassium Chloride [Potassium Chloride] 20 MEQ Tablet.Er) PO SCH (09:00)
[2022-09-10] MEDS ORDERED: Non-Formulary Medication 1 Each (Multivitamin [Multivitamin] 1 EACH Tablet) PO SCH (09:00)
[2022-09-10] MEDS ORDERED: Levothyroxine 88 MCG Tab PO SCH (09:00)
[2022-09-10] MEDS: Nozin Nasal Sanitizer NASBOTH SCH ×2 (09:20→20:20)
[2022-09-10] MEDS: Cholecalciferol (Vitamin D3) 25 MCG Tab PO SCH (09:20)
[2022-09-10] MEDS: Citalopram 20 MG Tab PO SCH (09:21)
[2022-09-10] MEDS: Aspirin 325 MG Tab.EC PO SCH ×2 (09:21→20:20)
[2022-09-10] MEDS: Vitamin B Complex Tab PO SCH (09:21)
[2022-09-10] MEDS: Ferrous Sulfate 325 MG Tab PO SCH ×2 (09:22→16:49)
[2022-09-10] MEDS: Potassium Chloride 20 MEQ Tab.ER PO SCH (09:22)
[2022-09-10] MEDS: Multivitamins with Iron/Calcium/Folic Acid/Minerals Tab PO SCH (09:22)
[2022-09-10] MEDS: Calcium Carbonate/Vitamin D3 1500 MG-400 Units Tab PO SCH ×2 (09:22→20:23)
[2022-09-10] MEDS: [UNRECOGNIZED DRUG - OTHER] PO SCH (20:15)
[2022-09-11] MEDS: oxyCODONE 5 MG Tab PO PRN (03:15)
[2022-09-11] MEDS: Acetaminophen 325 MG Tab PO SCH ×2 (03:16→08:59)
[2022-09-11] MEDS: Ferrous Sulfate 325 MG Tab PO SCH (07:34)
[2022-09-11] MEDS: Vitamin B Complex Tab PO SCH (08:55)
[2022-09-11] MEDS: Cholecalciferol (Vitamin D3) 25 MCG Tab PO SCH (08:55)
[2022-09-11] MEDS: Multivitamins with Iron/Calcium/Folic Acid/Minerals Tab PO SCH (08:55)
[2022-09-11] MEDS: Citalopram 20 MG Tab PO SCH (08:55)
[2022-09-11] MEDS: Nozin Nasal Sanitizer NASBOTH SCH (08:55)
[2022-09-11] MEDS: Aspirin 325 MG Tab.EC PO SCH (08:56)
[2022-09-11] MEDS: Potassium Chloride 20 MEQ Tab.ER PO SCH (08:56)
[2022-09-11] MEDS: [UNRECOGNIZED DRUG - OTHER] PO SCH (08:56)
[2022-09-11] MEDS: Calcium Carbonate/Vitamin D3 1500 MG-400 Units Tab PO SCH (08:57)
[2022-09-11] MEDS ORDERED: Sulfamethoxazole/Trimethoprim 800-160 MG Tab PO SCH (09:00)
[2022-09-22] MEDS ORDERED: Cyanocobalamin (Vitamin B12) 1,000 MCG/ML SDV IM SCH (09:00)
== END 2022-09-11 15:00 | disposition home or self-care (01) | DRG 470 ==
LOC: JP.SDS 05:58 → JP.MS 08:57 → JP.SDS 09-10 08:16 → JP.MS 09-10 08:22
PROVIDERS: ADMIT Physician Assistant; ATTEND Specialist
PROC: 0SRD0J9 Replacement of Left Knee Joint with Synthetic Substitute, Cemented, Open Approach (ICD-10-PCS; principal; 2022-09-09)
DX: M17.12 Unilateral primary osteoarthritis, left knee (principal); E21.3 Hyperparathyroidism, unspecified; Z98.84 Bariatric surgery status; Z87.442 Personal history of urinary calculi
CPT/HCPCS: 36415; 73560-26-LT; 73560-LT; 80053; 85027; 97110-GP; 97161-GP; 97165-GO; 97530-GP; 97535-GO; A9270-GY; C1713; C1776; J0690; J2250; J2405; J2704; J3010; J3490; J7030; J7120

== ENCOUNTER 2023-01-27 09:12 | Inpatient (IN) | payer MEDICARE, BC ==
[~2023-01-27 09:12] MED LIST changes: -Bupivacaine 0.5% 30 ML SDV ONE; +Bupivacaine 0.5% 50 ML MDV ONE; -Lidocaine 1% with EPINEPHrine 1:100,000 50 ML MDV ONE
[2023-01-27] MEDS ORDERED: Lactated Ringers 1,000 ML IV SCH (09:30)
[2023-01-27 09:39] LABS: HEMATOCRIT 38.1 % (34.3-46.0); HEMOGLOBIN 12.6 g/dL (11.2-15.5); MEAN CORPUSCULAR HEMOGLOBIN 31.4 pg (31.6-35.5); MEAN CORPUSCULAR HGB CONC 33.1 g/dL (31.6-35.5); RED BLOOD CELL COUNT 4.01 M/uL (3.77-5.24); WHITE BLOOD CELL COUNT,WBC 5.1 K/uL (3.2-11.0)
[2023-01-27] MEDS ORDERED: fentaNYL 100 MCG/2 ML SDV ONE ×2 (09:45→11:20)
[2023-01-27] MEDS ORDERED: Propofol 200 MG/20 ML SDV ONE ×3 (09:45→12:09)
[2023-01-27] MEDS ORDERED: Nozin Nasal Sanitizer NASBOTH SCH (09:45)
[2023-01-27] MEDS ORDERED: Midazolam 1 MG/ML 2 ML SDV ONE ×2 (09:45→11:21)
[2023-01-27 09:59] LABS: A/G RATIO 1.2 (1.2-2.2); ALANINE AMINOTRANSFERASE,ALT 20 U/L (12-78); ALBUMIN 3.6 g/dL (3.4-5.0); ALKALINE PHOSPHATASE 70 U/L (46-116); ANION GAP 9.4 mmol/L (5.0-14.0); ASPARTATE AMNIOTRANSFERASE,AST 19 U/L (15-37); BILIRUBIN TOTAL 0.5 mg/dL (0.2-1.0); BLOOD UREA NITROGEN,BUN 12 mg/dL (7-18); CALCIUM 8.7 mg/dL (8.5-10.1); CARBON DIOXIDE,CO2 27 mmol/L (21-32); CHLORIDE,CL 104 mmol/L (100-108); CREATININE 0.6 mg/dL (0.6-1.0); EST CRCL DRUG DOSING (CG) 73.19 mL/min; ESTIMATED GFR 95 mL/min (>60); GLUCOSE RANDOM 99 mg/dL (74-106); POTASSIUM,K 4.3 mmol/L (3.6-5.2); PROTEIN TOTAL,TP 6.7 g/dL (6.4-8.2); SODIUM,NA 140 mmol/L (140-148)
[2023-01-27] MEDS ORDERED: oxyCODONE 5 MG Tab PO PRN (10:00)
[2023-01-27] MEDS ORDERED: Magnesium Hydroxide 400 MG/5 ML Susp 30 ML Cup PO PRN (10:01)
[2023-01-27] MEDS ORDERED: Morphine 2 MG/ML SYRINGE IVPUSH PRN (10:01)
[2023-01-27] MEDS ORDERED: Ketorolac 30 MG/ML SDV IVPUSH PRN (10:01)
[2023-01-27] MEDS ORDERED: Ondansetron 4 MG/2 ML SDV IVPUSH PRN (10:01)
[2023-01-27] MEDS ORDERED: CEFADROXIL 500 MG PO SCH (10:15)
[2023-01-27] MEDS ORDERED: ceFAZolin 2 GM in Sodium Chloride 0.9% 100 ML IV SCH (10:15)
[2023-01-27] MEDS ORDERED: Tranexamic Acid 1,000 MG in Sodium Chloride 0.9% 50 ML IV ONE (10:15)
[2023-01-27] MEDS ORDERED: ceFAZolin 2 GM in Premix Bag 1 BAG IV ONE (10:30)
[2023-01-27] MEDS ORDERED: ceFAZolin 2 GM in Sodium Chloride 0.9% 100 ML IV ONE (10:30)
[2023-01-27] MEDS ORDERED: Lactated Ringers 1,000 ML ONE (12:30)
[2023-01-27] MEDS: Acetaminophen 325 MG Tab PO SCH ×2 (15:28→22:22)
[2023-01-27] MEDS: ceFAZolin 2 GM in Premix Bag 1 BAG IV SCH (17:46)
[2023-01-27] MEDS: oxyCODONE 5 MG Tab PO PRN (19:33)
[2023-01-27] MEDS: Ketorolac 15 MG/ML SDV IVPUSH PRN (19:34)
[2023-01-27] MEDS: Sodium Chloride 0.9% 1,000 ML IV SCH (19:35)
[2023-01-27] MEDS: Nozin Nasal Sanitizer NASBOTH SCH (20:25)
[2023-01-28] MEDS: Cyclobenzaprine 10 MG Tab PO PRN ×3 (01:28→17:13)
[2023-01-28] MEDS: oxyCODONE 5 MG Tab PO PRN ×3 (01:28→12:39)
[2023-01-28] MEDS: ceFAZolin 2 GM in Premix Bag 1 BAG IV SCH ×2 (01:30→09:39)
[2023-01-28] MEDS: Acetaminophen 325 MG Tab PO SCH ×4 (04:37→21:57)
[2023-01-28] MEDS: Sodium Chloride 0.9% 1,000 ML IV SCH (04:45)
[2023-01-28] MEDS: Potassium Chloride 20 MEQ Tab.ER PO SCH (07:46)
[2023-01-28] MEDS ORDERED: Levothyroxine 88 MCG Tab PO SCH (09:00)
[2023-01-28] MEDS ORDERED: Non-Formulary Medication 1 Each (Potassium Chloride [Potassium Chloride] 20 MEQ Tablet.Er) PO SCH (09:00)
[2023-01-28] MEDS ORDERED: Non-Formulary Medication 1 Each (Multivitamin [Multivitamin] 1 EACH Tablet) PO SCH (09:00)
[2023-01-28] MEDS ORDERED: CALCIUM CITRATE PO SCH (09:00)
[2023-01-28] MEDS ORDERED: CITALOPRAM 40 MG PO SCH (09:00)
[2023-01-28] MEDS ORDERED: [UNRECOGNIZED DRUG - OTHER] PO SCH (09:00)
[2023-01-28] MEDS ORDERED: VITAMIN D3 PO SCH (09:00)
[2023-01-28] MEDS: Ketorolac 15 MG/ML SDV IVPUSH PRN (09:38)
[2023-01-28] MEDS: Nozin Nasal Sanitizer NASBOTH SCH ×2 (09:38→21:56)
[2023-01-28] MEDS: Calcium Carbonate/Vitamin D3 1500 MG-400 Units Tab PO SCH ×2 (09:39→21:56)
[2023-01-28] MEDS: Citalopram 20 MG Tab PO SCH (09:39)
[2023-01-28] MEDS: Aspirin 325 MG Tab.EC PO SCH ×2 (09:39→21:56)
[2023-01-28] MEDS: Ferrous Sulfate 325 MG Tab PO SCH ×2 (09:39→21:56)
[2023-01-28] MEDS: Multivitamins with Iron/Calcium/Folic Acid/Minerals Tab PO SCH (09:40)
[2023-01-28] MEDS: Calcium Carbonate 500 MG Tab.Chew PO PRN (14:30)
[2023-01-29] MEDS: oxyCODONE 5 MG Tab PO PRN ×4 (05:44→20:34)
[2023-01-29] MEDS: Acetaminophen 325 MG Tab PO SCH ×4 (05:44→21:46)
[2023-01-29] MEDS: Potassium Chloride 20 MEQ Tab.ER PO SCH (07:57)
[2023-01-29] MEDS: Calcium Carbonate/Vitamin D3 1500 MG-400 Units Tab PO SCH ×2 (07:59→20:33)
[2023-01-29] MEDS: Nozin Nasal Sanitizer NASBOTH SCH ×2 (07:59→20:33)
[2023-01-29] MEDS: Aspirin 325 MG Tab.EC PO SCH ×2 (07:59→20:33)
[2023-01-29] MEDS: Citalopram 20 MG Tab PO SCH (07:59)
[2023-01-29] MEDS: Ferrous Sulfate 325 MG Tab PO SCH ×2 (07:59→20:33)
[2023-01-29] MEDS: Multivitamins with Iron/Calcium/Folic Acid/Minerals Tab PO SCH (07:59)
[2023-01-29] MEDS: Calcium Carbonate 500 MG Tab.Chew PO PRN (10:09)
[2023-01-29] MEDS: Docusate Sodium 100 MG Cap PO PRN (10:09)
[2023-01-29] MEDS: Cyclobenzaprine 10 MG Tab PO PRN (10:09)
[2023-01-30] MEDS: oxyCODONE 5 MG Tab PO PRN ×3 (02:38→11:13)
[2023-01-30] MEDS: Acetaminophen 325 MG Tab PO SCH ×2 (04:58→11:13)
[2023-01-30] MEDS: Docusate Sodium 100 MG Cap PO PRN (07:23)
[2023-01-30] MEDS: Potassium Chloride 20 MEQ Tab.ER PO SCH (07:56)
[2023-01-30] MEDS: Nozin Nasal Sanitizer NASBOTH SCH (08:00)
[2023-01-30] MEDS: Citalopram 20 MG Tab PO SCH (08:00)
[2023-01-30] MEDS: Aspirin 325 MG Tab.EC PO SCH (08:00)
[2023-01-30] MEDS: Multivitamins with Iron/Calcium/Folic Acid/Minerals Tab PO SCH (08:00)
[2023-01-30] MEDS: Calcium Carbonate/Vitamin D3 1500 MG-400 Units Tab PO SCH (08:01)
[2023-01-30] MEDS: Ferrous Sulfate 325 MG Tab PO SCH (08:01)
[2023-02-02] MEDS ORDERED: Alendronate 70 MG Tab PO SCH (07:00)
== END 2023-01-30 14:15 | disposition home or self-care (01) | DRG 470 ==
LOC: JP.SDS 09:12 → JP.ICU 10:01 → JP.SDS 01-28 12:59 → JP.ICU 01-28 13:00
PROVIDERS: ADMIT Specialist; ATTEND Specialist
PROC: 0SRC069 Replacement of Right Knee Joint with Oxidized Zirconium on Polyethylene Synthetic Substitute, Cemented, Open Approach (ICD-10-PCS; principal; 2023-01-27)
DX: M17.11 Unilateral primary osteoarthritis, right knee (principal); Z68.41 Body mass index [BMI] 40.0-44.9, adult; E66.9 Obesity, unspecified; F32.A Depression, unspecified; Z79.82 Long term (current) use of aspirin; Z91.048 Other nonmedicinal substance allergy status; Z79.899 Other long term (current) drug therapy; Z96.652 Presence of left artificial knee joint
CPT/HCPCS: 27447; 36415; 73560 ×2; 80053; 85027; 97110; 97161; A9270 ×21; C1713; C1776 ×8; J0690 ×4; J1885 ×2; J2250 ×2; J2704 ×3; J3010 ×2; J3490 ×2; J7030 ×2; J7120 ×2; 97116-GP; 97530-GP

== ENCOUNTER 2024-04-16 05:57 | Emergency (ER) | payer MEDICARE, BC ==
[2024-04-16 08:37] LABS: BASOPHILS PERCENT AUTO 0.2 % (0.1-1.3); EOSINOPHILS ABSOLUTE AUTO 0.14 K/uL (0.00-0.40); EOSINOPHILS PERCENT AUTO 2.4 % (0.0-5.4); HEMATOCRIT 34.5 % (34.3-46.0); HEMOGLOBIN 11.7 g/dL (11.2-15.5); IMMATURE GRAN ABSOLUTE AUTO 0.06 K/uL (0.00-0.23); LYMPHOCYTES ABSOLUTE AUTO 1.64 K/uL (0.8-3.3); LYMPHOCYTES PERCENT AUTO 27.7 % (11.4-47.7); MEAN CORPUSCULAR HGB CONC 33.9 g/dL (31.6-35.5); MEAN CORPUSCULAR VOLUME 94.3 fL (81.4-99.0); MONOCYTES ABSOLUTE AUTO 0.52 K/uL (0.20-0.90); MONOCYTES PERCENT AUTO 8.8 % (3.3-12.6); NEUTROPHILS ABSOLUTE AUTO 3.54 K/uL (1.0-7.6); NEUTROPHILS PERCENT AUTO 59.9 % (40.0-78.1); PLATELET COUNT,PLT 305 K/uL (130-375); RED BLOOD CELL COUNT 3.66 M/uL (3.77-5.24); WHITE BLOOD CELL COUNT,WBC 5.9 K/uL (3.2-11.0)
[2024-04-16 08:39] LABS: BASOPHILS ABSOLUTE AUTO 0.01 K/uL (0.00-0.10)
[2024-04-16 09:01] LABS: A/G RATIO 1.2 (1.2-2.2); ALANINE AMINOTRANSFERASE,ALT 24 U/L (12-78); ALBUMIN 3.4 g/dL (3.4-5.0); ALKALINE PHOSPHATASE 85 U/L (46-116); ANION GAP 7.1 mmol/L (5.0-14.0); ASPARTATE AMNIOTRANSFERASE,AST 21 U/L (15-37); BILIRUBIN TOTAL 0.4 mg/dL (0.2-1.0); BLOOD UREA NITROGEN,BUN 16 mg/dL (7-18); C-REACTIVE PROTEIN < 0.50 mg/dL (<0.50); CARBON DIOXIDE,CO2 30 mmol/L (21-32); CHLORIDE,CL 106 mmol/L (100-108); CREATININE 0.7 mg/dL (0.6-1.0); EST CRCL DRUG DOSING (CG) 61.81 mL/min; ESTIMATED GFR 91 mL/min (>60); GLUCOSE RANDOM 89 mg/dL (74-106); POTASSIUM,K 3.7 mmol/L (3.6-5.2); PROTEIN TOTAL,TP 6.3 g/dL (6.4-8.2); SODIUM,NA 143 mmol/L (140-148)
== END 2024-04-16 10:15 | disposition home or self-care (01) ==
LOC: JP.ED 05:57
DX: M25.462 Effusion, left knee (principal); M19.90 Unspecified osteoarthritis, unspecified site; E03.9 Hypothyroidism, unspecified; E66.9 Obesity, unspecified; Z90.49 Acquired absence of other specified parts of digestive tract; Z90.710 Acquired absence of both cervix and uterus; Z88.8 Allergy status to other drugs, medicaments and biological substances; Z91.048 Other nonmedicinal substance allergy status; Z79.82 Long term (current) use of aspirin; Z79.890 Hormone replacement therapy; Z79.899 Other long term (current) drug therapy; Z68.41 Body mass index [BMI] 40.0-44.9, adult
CPT/HCPCS: 36415; 73562-26-LT; 73562-LT; 80053; 83605; 85025; 86140; 93971-26-LT; 93971-LT; 99284

== ENCOUNTER 2024-10-05 16:15 | Emergency (ER) | payer MEDICARE | END 2024-10-05 18:39 | disposition home or self-care (01) | LOC: JP.ED 16:15 | DX: R60.0 Localized edema (principal); E03.9 Hypothyroidism, unspecified; E66.9 Obesity, unspecified; Z68.41 Body mass index [BMI] 40.0-44.9, adult; Z90.49 Acquired absence of other specified parts of digestive tract; Z90.710 Acquired absence of both cervix and uterus; Z79.899 Other long term (current) drug therapy; Z79.890 Hormone replacement therapy; Z79.82 Long term (current) use of aspirin; Z91.048 Other nonmedicinal substance allergy status | CPT/HCPCS: 93971-LT; 99283 ==

== ENCOUNTER 2024-12-17 07:09 | Day surgery (SDC) | payer MEDICARE ==
[2024-12-17] MEDS: Lactated Ringers 1,000 ML IV SCH (08:07)
[2024-12-17] MEDS ORDERED: Propofol 200 MG/20 ML SDV ONE (08:17)
[2024-12-17] MEDS ORDERED: fentaNYL 100 MCG/2 ML SDV ONE (08:17)
== END 2024-12-17 11:00 | disposition home or self-care (01) ==
LOC: JP.SDS 07:09
PROVIDERS: ATTEND Family Medicine
DX: Z12.11 Encounter for screening for malignant neoplasm of colon (principal); K64.8 Other hemorrhoids; K64.4 Residual hemorrhoidal skin tags; Z98.0 Intestinal bypass and anastomosis status; Z90.49 Acquired absence of other specified parts of digestive tract; Z85.038 Personal history of other malignant neoplasm of large intestine
CPT/HCPCS: 00811; 45380; 88305; J2704; J3010; J7120